=== PATIENT | female | born 1960 | race Caucasian/White ===

== ENCOUNTER 2018-03-28 16:01 | Outpatient (REF) | payer OTHER, SELFPAY ==
[2018-03-28 22:36] LABS: HCT 40.3 % (36.0-46.0); HGB 13.3 g/dL (12.0-15.5); Mean Corpuscular Hemoglobin 28.2 pg (27.0-33.0); Mean Corpuscular Volume 85.4 fL (80-95); Mean Platelet Volume 10.9 fL (8.0-11.0); Platelet Count 283 x1000/uL (130-400); RBC 4.72 m/cumm (4.00-5.20); RBC Distribution Width 14.8 % (11.7-14.6); White Blood Cell Count 7.36 k/cumm (4.4-10.8)
[2018-03-28 22:43] LABS: ALT 27 U/L (12-78); AST 21 U/L (15-37); Albumin 3.6 g/dL (3.4-5.0); Alkaline Phosphatase 118 U/L (46-116); Anion Gap 7.9 mmol/L (3-11); BUN 6 mg/dL (7-18); Bilirubin, Total 0.3 mg/dL (0.2-1.0); CO2 28.1 mmol/L (21.0-32.0); CREATININE 0.77 mg/dL (0.55-1.02); Calcium 8.5 mg/dL (8.5-10.1); Chloride 106 mmol/L (98-107); Cholesterol 221 mg/dL (50-200); Glucose 135 mg/dL (70-100); HDL Cholesterol 38 mg/dL (40-60); LDL CHOLESTEROL 142 mg/dL (<100); Potassium 3.7 mmol/L (3.5-5.1); Sodium 142 mmol/L (136-145); TSH 3.38 uIU/mL (0.358-3.74); Total Protein 7.5 g/dL (6.4-8.2); Triglyceride 362 mg/dL (30-150)
[2018-03-28 23:08] LABS: C-Reactive Protein 2.85 mg/dL (0.0-0.3)
[2018-03-28 23:43] LABS: ESR 35 MM/HR (0-30)
[2018-03-31 08:43] LABS: ANA Interpretation Negative (NEGAT); HLA-B27 Result Negative
== END 2018-03-28 16:21 ==
LOC: NCHCN 16:01
PROVIDERS: PCP Nurse Practitioner Family; Visit Provider Nurse Practitioner Family
DX: N92.0 Excessive and frequent menstruation with regular cycle (principal); K58.9 Irritable bowel syndrome, unspecified
CPT/HCPCS: 80053; 80061; 83721; 85027; 85652; 86812; 84443; 86038; 86140

== ENCOUNTER 2019-10-27 10:58 | Outpatient (REF) | payer OTHER, SELFPAY ==
[2019-10-27 21:01] LABS: Hemoglobin A1C 6.8 % (3.8-5.6)
[2019-10-27 21:12] LABS: Anion Gap 7.9 mmol/L (3-11); BUN 15 mg/dL (7-18); CO2 29.1 mmol/L (21.0-32.0); CREATININE 0.74 mg/dL (0.55-1.02); Calcium 8.8 mg/dL (8.5-10.1); Calculated LDL 167 mg/dL (<100); Chloride 103 mmol/L (98-107); Cholesterol 252 mg/dL (<200); Glucose 125 mg/dL (74-106); HDL Cholesterol 47 mg/dL (40-60); Sodium 140 mmol/L (136-145); Triglyceride 191 mg/dL (<150)
== END 2019-10-27 11:18 ==
LOC: NCHCN 10:58
PROVIDERS: PCP Nurse Practitioner Family; Visit Provider Nurse Practitioner Family
DX: E11.9 Type 2 diabetes mellitus without complications (principal); E78.5 Hyperlipidemia, unspecified
CPT/HCPCS: 80048; 80061; 83036

== ENCOUNTER 2020-03-25 10:33 | Outpatient (REF) | payer OTHER, SELFPAY ==
[2020-03-28 12:21] LABS: SARS-CoV-2 RNA Undetected (Undetected); SARS-CoV-2 Specimen Source Nasopharynx
== END 2020-03-25 10:53 ==
LOC: NCHCN 10:33
PROVIDERS: PCP Nurse Practitioner Family; Visit Provider Nurse Practitioner Family
DX: R05 Cough (principal)
CPT/HCPCS: U0003

== ENCOUNTER 2020-05-08 09:12 | Outpatient (REF) | payer OTHER, SELFPAY ==
[2020-05-08 22:14] LABS: HCT 40.5 % (36.0-46.0); HGB 13.2 g/dL (11.2-15.7); MCH 28.5 pg (27.0-33.0); MCHC 32.6 % (32.0-36.0); MCV 87.5 fL (80-95); MPV 10.8 fL (8.0-11.0); Platelet Count 258 10^3/uL (130-400); RBC 4.63 10^6/uL (3.93-5.22); RDW 13.4 % (11.7-14.6); WBC 4.53 10^3/uL (4.4-10.8)
[2020-05-08 22:39] LABS: Hemoglobin A1C 7.4 % (<5.7)
[2020-05-08 23:06] LABS: ALT 39 U/L (14-59); AST 23 U/L (15-37); Albumin 3.6 g/dL (3.4-5.0); Alkaline Phosphatase 100 U/L (46-116); Anion Gap 8.4 mmol/L (3-11); BUN 13 mg/dL (7-18); Bilirubin, Total 0.6 mg/dL (0.2-1.0); CO2 26.6 mmol/L (21.0-32.0); CREATININE 0.69 mg/dL (0.55-1.02); Calcium 8.7 mg/dL (8.5-10.1); Calculated LDL 73 mg/dL (<100); Chloride 104 mmol/L (98-107); Cholesterol 149 mg/dL (<200); Glucose 177 mg/dL (74-106); HDL Cholesterol 45 mg/dL (40-60); Magnesium 1.8 mg/dL (1.8-2.4); Sodium 139 mmol/L (136-145); Triglyceride 156 mg/dL (<150); Vitamin B12 380 pg/mL (193-986)
== END 2020-05-08 09:32 ==
LOC: NCHCN 09:12
PROVIDERS: PCP Nurse Practitioner Family; Visit Provider Nurse Practitioner Family
DX: R53.83 Other fatigue (principal); E11.9 Type 2 diabetes mellitus without complications; E66.3 Overweight
CPT/HCPCS: 80053; 80061; 85027; 82607; 83036; 83735

== ENCOUNTER 2020-06-12 13:34 | Outpatient (REF) | payer OTHER, SELFPAY ==
[2020-06-15 17:00] LABS: COVID-19 RT-PCR Result NEGATIVE (Negative)
== END 2020-06-12 13:54 ==
LOC: NCHCN 13:34
PROVIDERS: PCP Nurse Practitioner Family; Visit Provider Nurse Practitioner Family
DX: J06.9 Acute upper respiratory infection, unspecified (principal); Z20.828 Contact with and (suspected) exposure to other viral communicable diseases
CPT/HCPCS: U0003

== ENCOUNTER 2020-07-04 12:44 | Outpatient (REF) | payer OTHER, SELFPAY ==
[2020-07-04 16:30] LABS: COMMENT (LAB VIEW ONLY) 160.15 mg/dL
[2020-07-04 16:46] LABS: Microalb ug/mg Crea 81.6 ug/mg Cr
== END 2020-07-04 13:04 ==
LOC: NCHCN 12:44
PROVIDERS: PCP Nurse Practitioner Family; Visit Provider Registered Nurse
DX: N39.0 Urinary tract infection, site not specified (principal); E11.9 Type 2 diabetes mellitus without complications
CPT/HCPCS: 87077; 82043; 82570; 87086; 87186

== ENCOUNTER 2020-08-05 15:46 | Outpatient (REF) | payer OTHER, SELFPAY ==
[2020-08-05 21:09] LABS: Epithelial Cells Few HPF (Negative); RBC 0-2 HPF (0-2)
[2020-08-05 21:10] LABS: Bacteria Rare HPF (Negative); C & S Indicated? C&S Done As Ordered; Casts Negative LPF (Negative); Crystals Negative HPF (Negative); Mucus Negative (Negative)
[2020-08-05 21:14] LABS: Anion Gap 7.5 mmol/L (3-11); BUN 10 mg/dL (7-18); CO2 25.5 mmol/L (21.0-32.0); CREATININE 0.98 mg/dL (0.55-1.02); Calcium 8.9 mg/dL (8.5-10.1); Chloride 104 mmol/L (98-107); Cholesterol 222 mg/dL (<200); Estimated GFR 58.09 (mL/min/1.73m2); Glucose 187 mg/dL (74-106); HDL Cholesterol 44 mg/dL (40-60); Potassium 3.6 mmol/L (3.5-5.1); Sodium 137 mmol/L (136-145); Triglyceride 450 mg/dL (<150)
[2020-08-05 21:45] LABS: LDL CHOLESTEROL 136 mg/dL (<100)
== END 2020-08-05 16:06 ==
LOC: NCHCN 15:46
PROVIDERS: PCP Nurse Practitioner Family; Visit Provider Nurse Practitioner Family
DX: E11.9 Type 2 diabetes mellitus without complications (principal); R80.9 Proteinuria, unspecified; R35.8 Other polyuria; K21.9 Gastro-esophageal reflux disease without esophagitis; D86.9 Sarcoidosis, unspecified; E78.5 Hyperlipidemia, unspecified
CPT/HCPCS: 80048; 80061; 83721; 81015; 87086

== ENCOUNTER 2020-08-12 15:48 | Outpatient (REF) | payer OTHER, SELFPAY ==
[2020-08-12 21:19] LABS: Bacteria Few HPF (Negative); C & S Indicated? No; Crystals Negative HPF (Negative); Epithelial Cells Many HPF (Negative); Mucus Negative (Negative); RBC 0-2 HPF (0-2); WBC Negative HPF (0-5)
== END 2020-08-12 16:08 ==
LOC: NCHCN 15:48
PROVIDERS: PCP Nurse Practitioner Family; Visit Provider Nurse Practitioner Family
DX: R31.9 Hematuria, unspecified (principal)
CPT/HCPCS: 81015

== ENCOUNTER 2020-09-20 08:22 | Outpatient (REF) | payer OTHER, SELFPAY ==
[2020-09-20 13:24] LABS: Hemoglobin A1C 7.4 % (<5.7)
[2020-09-20 13:26] LABS: Calculated LDL 75 mg/dL (<100); Cholesterol 155 mg/dL (<200); HDL Cholesterol 55 mg/dL (40-60); Triglyceride 126 mg/dL (<150)
== END 2020-09-20 08:23 | disposition home or self-care (01) ==
LOC: NCHCN 08:22
PROVIDERS: PCP Nurse Practitioner Family; Visit Provider Nurse Practitioner Family
DX: E11.9 Type 2 diabetes mellitus without complications (principal); E78.5 Hyperlipidemia, unspecified
CPT/HCPCS: 80061; 83036

== ENCOUNTER 2020-10-14 17:24 | Outpatient (REF) | payer OTHER, SELFPAY ==
--- NOTE | 2020-10-14 16:00 | PAPFT_PTH ---
PATIENT: Amy Alexander LOC: [facility] U#:[id number] AGE/SX: 60/F ROOM: RE10/14/[address]: Diane Soto : 1960 BED: DIS: 10/14/2020 SPEC #: [id number] RECD: 10/15/20 12:51 STATUS: KYLER MARTE #: [id number] RODO: 10/14/20 16:[address]: Diane Law DEPT: [facility] Cytology RECD BY: Anne Villarreal ENTERED: 10/15/20 12:51 SP TYPE: PAPFT ADRIANA DR: Sarah Núñez Tissues: 1 - CX/ENDOCX FOR PAP SMEARS Procedures: PAP THIN PREP/UVM Screening HPV DNA PROBE Comments: [id number]
== END 2020-10-14 17:25 | disposition home or self-care (01) ==
LOC: NCHCN 17:24
PROVIDERS: PCP Nurse Practitioner Family; Visit Provider Nurse Practitioner Family
DX: Z00.00 Encounter for general adult medical examination without abnormal findings (principal); Z12.4 Encounter for screening for malignant neoplasm of cervix; Z11.51 Encounter for screening for human papillomavirus (HPV)
CPT/HCPCS: 88142; 87624

== ENCOUNTER 2021-01-14 16:26 | Outpatient (REF) | payer OTHER, SELFPAY ==
--- NOTE | 2021-01-14 15:00 | SKI_PTH ---
PATIENT: Amy Alexander LOC: [facility] U#:[id number] AGE/SX: 60/F ROOM: RE01/14/[address]: Diane Soto : 1960 BED: DIS: 01/14/2021 SPEC #: [id number] RECD: 01/15/21 09:09 STATUS: KYLER REMarino #: [id number] RODO: 01/14/21 15:[address]: Diane Law DEPT: Surgical Specimen RECD BY: Marcy Kearns ENTERED: 01/15/21 09:12 SP TYPE: GENTRY WRIGHT DR: Sarah Núñez Tissues: 1 - SKIN BIOPSY(SHAVE/PUNCH) Procedures: SKIN LEVEL 4 Comments: [id number]
== END 2021-01-14 16:27 | disposition home or self-care (01) ==
LOC: NCHCN 16:26
PROVIDERS: PCP Nurse Practitioner Family; Visit Provider Nurse Practitioner Family
DX: D22.5 Melanocytic nevi of trunk (principal)
CPT/HCPCS: 88305

== ENCOUNTER 2021-04-22 01:35 | Outpatient (CLI) | payer OTHER, SELFPAY ==
[2021-04-22] MEDS: Normal Saline 500 ML 30 ML IV (10:25)
[2021-04-22 10:50] VITALS: BP 114/73; PULSE 70; RESP 16; TEMP 36.9; O2SAT 99
[2021-04-22 11:05] VITALS: BP 114/73; PULSE 70; RESP 16; TEMP 36.9; O2SAT 99
[2021-04-22 11:30] VITALS: BP 122/85; PULSE 76; RESP 16; TEMP 37.1; O2SAT 99
[2021-04-22 11:56] VITALS: BP 100/67; PULSE 74; RESP 16; TEMP 36.7; O2SAT 97
[2021-04-22 12:45] VITALS: BP 100/67; PULSE 79; RESP 16; TEMP 36.9; O2SAT 97
[2021-04-22] MEDS: Normal Saline Flush 10 ML SYR IVP (13:09)
== END 2021-04-22 01:36 | disposition home or self-care (01) ==
PROVIDERS: PCP Nurse Practitioner Family; Visit Provider Family Medicine
DX: U07.1 COVID-19 (principal)
CPT/HCPCS: 96365

== ENCOUNTER 2021-07-10 17:20 | Outpatient (REF) | payer OTHER, SELFPAY ==
[2021-07-10 18:05] LABS: Hemoglobin A1C 6.1 % (<5.7)
[2021-07-10 18:08] LABS: Anion Gap 9.6 mmol/L (3-11); BUN 11 mg/dL (7-18); CO2 26.4 mmol/L (21.0-32.0); CREATININE 0.8 mg/dL (0.55-1.02); Calcium 8.7 mg/dL (8.5-10.1); Chloride 106 mmol/L (98-107); Glucose 183 mg/dL (74-106); Potassium 4.1 mmol/L (3.5-5.1); Sodium 142 mmol/L (136-145)
== END 2021-07-10 17:21 | disposition home or self-care (01) ==
LOC: NCHCN 17:20
PROVIDERS: PCP Nurse Practitioner Family; Visit Provider Nurse Practitioner Family
DX: E11.9 Type 2 diabetes mellitus without complications (principal)
CPT/HCPCS: 80048; 83036

== ENCOUNTER 2021-12-17 15:58 | Outpatient (REF) | payer OTHER, SELFPAY ==
[2021-12-17 21:17] LABS: HCT 38.7 % (36.0-46.0); HGB 12.4 g/dL (11.2-15.7); MCH 28.2 pg (27.0-33.0); MCV 88 fL (80-95); MPV 12.1 fL (8.0-11.0); Platelet Count 196 10^3/uL (130-400); RBC 4.39 10^6/uL (3.93-5.22); RDW 13.9 % (11.7-14.6); RDW-SD 44.6 fL; WBC 6.16 10^3/uL (4.4-10.8)
[2021-12-17 21:44] LABS: Hemoglobin A1C 6.5 % (<5.7)
[2021-12-22 12:41] LABS: IgA 256 mg/dL (85-499); Interpretation (See Note); Tissue Transglutaminase IgA <1.2 U/mL (<4.0)
== END 2021-12-17 15:59 | disposition home or self-care (01) ==
LOC: NCHCN 15:58
PROVIDERS: PCP Nurse Practitioner Family; Visit Provider Nurse Practitioner Family
DX: E11.9 Type 2 diabetes mellitus without complications (principal); R19.7 Diarrhea, unspecified
CPT/HCPCS: 82784; 83516; 85027; 83036

== ENCOUNTER 2021-12-29 16:26 | Outpatient (REF) | payer OTHER, SELFPAY ==
[2021-12-29 23:23] LABS: COMMENT (LAB VIEW ONLY) 196.58 mg/dL
== END 2021-12-29 16:27 | disposition home or self-care (01) ==
LOC: NCHCN 16:26
PROVIDERS: PCP Nurse Practitioner Family; Visit Provider Nurse Practitioner Family
DX: I10 Essential (primary) hypertension (principal); E11.9 Type 2 diabetes mellitus without complications; K58.9 Irritable bowel syndrome, unspecified; D86.9 Sarcoidosis, unspecified
CPT/HCPCS: 82043; 82570

== ENCOUNTER 2022-12-21 12:49 | Outpatient (REF) | payer SELFPAY ==
[2022-12-21 15:39] LABS: HCT 40.8 % (36.0-46.0); HGB 13.3 g/dL (11.2-15.7); MCH 28.2 pg (27.0-33.0); MCHC 32.6 % (32.0-36.0); MCV 86 fL (80-95); MPV 10.5 fL (8.0-11.0); Platelet Count 301 10^3/uL (130-400); RBC 4.72 10^6/uL (3.93-5.22); RDW 13.9 % (11.7-14.6); RDW-SD 44.3 fL; WBC 5.11 10^3/uL (4.4-10.8)
[2022-12-21 15:53] LABS: ALT 37 U/L (14-59); AST 27 U/L (15-37); Albumin 3.5 g/dL (3.4-5.0); Alkaline Phosphatase 100 U/L (46-116); Anion Gap 5.1 mmol/L (3-11); BUN 12 mg/dL (7-18); Bilirubin, Total 0.4 mg/dL (0.2-1.0); CO2 27.9 mmol/L (21.0-32.0); CREATININE 0.8 mg/dL (0.55-1.02); Calcium 8.7 mg/dL (8.5-10.1); Chloride 103 mmol/L (98-107); Estimated GFR 83.78 (mL/min/1.73m2); Glucose 103 mg/dL (74-106); Sodium 136 mmol/L (136-145); TSH 3.39 uIU/mL (0.36-3.74); Total Protein 7.6 g/dL (6.4-8.2)
[2022-12-21 16:19] LABS: Hemoglobin A1C 6.6 % (<5.7)
== END 2022-12-21 12:50 | disposition home or self-care (01) ==
LOC: NCHCN 12:49
PROVIDERS: PCP Nurse Practitioner Family; Visit Provider Nurse Practitioner Family
DX: Z00.00 Encounter for general adult medical examination without abnormal findings (principal); R53.83 Other fatigue; E66.3 Overweight
CPT/HCPCS: 80053; 85027; 83036; 84443

== ENCOUNTER 2024-04-17 16:00 | Outpatient (REF) | payer BC, SELFPAY ==
[2024-04-17 22:18] LABS: ALT 28 U/L (14-59); AST 25 U/L (15-37); Albumin 3.6 g/dL (3.4-5.0); Alkaline Phosphatase 116 U/L (46-116); Anion Gap 8.9 mmol/L (3-11); BUN 8 mg/dL (7-18); Bilirubin, Total 0.57 mg/dL (0.2-1.0); CO2 27.1 mmol/L (21.0-32.0); CREATININE 0.8 mg/dL (0.55-1.02); Calcium 9.1 mg/dL (8.5-10.1); Calculated LDL 83 mg/dL (<100); Chloride 106 mmol/L (98-107); Cholesterol 185 mg/dL (<200); Estimated GFR 83.26 (mL/min/1.73m2); Glucose 191 mg/dL (74-106); HDL Cholesterol 53 mg/dL (40-60); Potassium 4.1 mmol/L (3.5-5.1); Sodium 142 mmol/L (136-145); Total Protein 7.6 g/dL (6.4-8.2); Triglyceride 248 mg/dL (<150)
[2024-04-17 22:28] LABS: COMMENT (LAB VIEW ONLY) 84.83 mg/dL; Microalb ug/mg Crea 5.1 ug/mg Cr
== END 2024-04-17 16:01 | disposition home or self-care (01) ==
LOC: NCHCN 16:00
PROVIDERS: PCP Nurse Practitioner Family; Visit Provider Nurse Practitioner Family
DX: E11.9 Type 2 diabetes mellitus without complications (principal); Z86.2 Personal history of diseases of the blood and blood-forming organs and certain disorders involving the immune mechanism; E78.5 Hyperlipidemia, unspecified
CPT/HCPCS: 80053; 80061; 85027; 82043; 82570; 83036

== ENCOUNTER 2024-04-26 16:00 | Outpatient (REF) | payer BC, SELFPAY ==
--- OUTSIDE RECORDS SUMMARY | 2024-04-26 16:04 | XMS_ITS | Clinical Summary ---
Author Organization [facility] Address [address] [place] [address] Care Team Providers Care Solid Waste Truck Driver Name Role Phone Diane Law NP Primary Care Provider [phone] Leif Lovelace MD Unavailable [phone] Allergies No known active allergies Medications Medication Sig Dispensed Refills Start Date End Date Status dexlansoprazole (DEXILANT) 60 mg capsule Take 1 Capsule by mouth daily. Active acetaminophen (TYLENOL) 325 mg tablet Take 1 Tablet by mouth every 4 hours as needed for Pain. Active calcium carbonate (TUMS) 200 mg calcium (500 mg) tablet,chewable Take 1 Tablet by mouth every 2 hours as needed. Active albuterol 90 mcg/actuation inhaler Inhale 2 Puffs as directed every 6 hours as needed for Wheezing. Active cyclopentolate (CYCLOGYL) 2 % ophthalmic solutionIndications :Iritis of left eye Place 1 Drop into the left eye 2 times daily. 1 Bottle 07/20/2018 Active Additional Information Patient not taking.Reported on 10/07/2018 prednisoLONE (PRED FORTE) 1 % ophthalmic suspensionIndicatio ns:Iritis of left eye Place 1 drop into the left eye 4 times daily. 1 Bottle 2 10/13/2018 Active Additional Information Patient not taking.Reported on 07/30/2023 sucralfate (CARAFATE) 1 gram tablet Take 1 Tablet by mouth 4 times daily. Active lansoprazole (PREVACID) 15 mg capsule Take 1 Capsule by mouth daily. Active metFORMIN (GLUCOPHAGE) 500 mg tablet Take 1 Tablet by mouth daily. Active losartan (COZAAR) 25 mg tablet Take 1 Tablet by mouth daily. 11/07/2022 Active BD ULTRA-FINE ORIG PEN NEEDLE USE DIRECTED EVERY DAY WITH VICTOZA 01/20/2023 Active atorvastatin (LIPITOR) 20 mg tablet Take 1 Tablet by mouth at bedtime. 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 Retinal edema 10/13/2018 Gastroesophageal reflux disease with esophagitis 03/12/2016 Hiatal hernia 03/12/2016 Immunizations Name Administration Dates Next Due Pneumococcal Conjugate Vacci ne 20-Valent (PCV20) (PREVNAR-20) 0.5 mL IM (6 wks+) 08/24/2023 Surgical History Surgery Date Site/Laterality Comments GASTRIC FUNDOPLICATION 12/23/2005 SECTION KNEE SURGERY Left Medical History Medical History Date Comments Asthma Irritable bowel syndrome Gestational diabetes Anemia GERD (gastroesophageal reflux disease) Family History Medical History Relation Comments Diabetes Brother Arthritis Father Cancer Father skin Diabetes Father Diabetes Mother High Blood Pressure Mother High Cholesterol Mother Relation Status Comments Brother Father Alive Mother Alive Social History Tobacco Use Types Packs/Day Years Used Date Smoking Tobacco: Never Smokeless Tobacco: Never Alcohol Use Standard Drinks/Week Comments Not Currently 0 (1 standard drink = 0.6 oz pur e alcohol) occ Interpersonal Safety Answer Date Record ed Physically Hurt Never 02/11/2020 Verbally Threaten Not on file 02/11/2020 Sex and Gender Information Value Date Recorded Sex Assigned at Not on file Gender Identity Not on file Sexual Orientation Not on file Obstetrics History Last Filed Vital Signs Vital Sign Reading Time Taken Comments Blood Pressure 112/68 08/24/2023 1346 EST Pulse 74 08/24/2023 1346 EST Temperature 36.6 ??C (97.9 ??F) 08/24/2023 1346 EST Respiratory Rate 16 08/24/2023 1346 EST Oxygen Saturation 97% 08/24/2023 1346 EST Inhaled Oxygen Concentration - - Weight 73.2 kg (161 lb 6.4 oz) 08/24/[address] Height 154.9 cm (5' 1) 08/24/2023 1346 EST Body Mass Index 30.5 08/24/2023 1346 EST Plan of Treatment Upcoming Encounters Date Type Department Care Team (Late st Contact Info) Description 05/18/2024 15:30 EST Office Visit [facility] Pulmonology [address] [facility], [place] [address] Leif Lovelace MD [address] [facility], [facility] [address] [place] [phone] Health Maintenance Due Date Last Done Comments Hepatitis C Screen 1960 RSV Immunization ( o r 60+ Years) (1 - 1-dose 60+ series) 2021 COVID-19 Vaccine (2023- season) 2024 Colonoscopy (Colon Cancer Screening) Discontinued 04/11 Colorectal Cancer Screening Discontinued Cologuard (Colon Cancer Screening) Discontinued FIT Test (Colon Cancer Screening) Discontinued Sigmoidoscopy (Colon Cancer Screening) Discontinued Procedures Procedure Name Priority Date/Time Associated Diagnosis Comments COLONOSCOPY PROCEDURE Routine 04/20/2018 11:01 EDT from Last 3 Months or Most Recently Relevant to Health Maintenance Results * COLONOSCOPY PROCEDURE (04/20/2018 11:01 EDT) Anatomical Region Laterality Modality Endoscopy Narrative 04/20/2018 11:01 EDT Procedure Performed Colonoscopy - cold biopsy Indications for Exam CHANGE IN BOWEL HABITS Procedure Technique A physical exam was performed. Informed consent was obtained from the patient after explaining all the risks (perforation, bleeding, missed findings, injury to nearby organs, infection and adverse effects to the medicine), benefits and alternatives to the procedure which the patient appeared to understand and so stated. ??The patient was connected to the monitoring devices and placed in the left lateral position. Continuous oxygen was provided with a nasal cannula and IV medicine administered thru an indwelling cannula. After adequate sedation was achieved, a digital exam was performed and the colonoscope introduced into the rectum and advanced under direct visualization to the terminal ileum. The terminal ileum was identified by visual landmarks. The endoscope was subsequently removed slowly while carefully examining the color, texture, anatomy, and integrity of the mucosa on withdrawal. Retroflexion was performed in the rectum: Yes. The patient was subsequently transferred to the recovery area in satisfactory condition. Rectal Exam:Normal rectal exam Estimated Blood Loss: None Complications None Medications Versed 4 mg Fentanyl 100 mcg I was in continuous face to face attendance during the administration of moderate sedation services that were monitored by an independent trained observer who had no other duties during the procedure. ??Total sedation time was ??20 ??minutes. Prosser Bowel Prep Right Colon: 3 ? Transverse Colon: 3 ? Left Colon: 3 ?Total: 9 Findings Few diverticulosis in the descending colon. random bx obtained to assess for microscopic colitis Diagnosis rare diverticulosis Recommendations check path and if evidence of microscopic colitis, begin budesonide 9 mg a day repeat colonoscopy in 10 yrs I would be pleased to see you in consultation if you desire. Please call the office. This electronic signature authenticates all electronic and/or handwritten documentation, including orders, generated by the signer during the episode of care contained in this record. 04/20/2018 11:01:13 AM By Winston Powers MD Winston Powers MD GI PROCEDURE ORDBruno BARNES from Last 3 Months or Most Recently Relevant to Health Maintenance Care Teams Solid Waste Truck Driver Relationship Specialty Start Date End Date Diane Law NP [address] [place] [address] PCP - General 01/21/21 Leif Lovelace MD [address] [place] [address], [address] [place] [phone] Consulting Clinician Pulmonary Disease 08/24/23
--- OUTSIDE RECORDS SUMMARY | 2024-04-26 16:05 | XMS_ITS | Encounter Summary ---
Author Organization [facility] Address [address] [place] [address] Care Team Providers Care Home Health Manager Name Role Phone Reggie Peralta MD Primary Care Provide r Encounter Details Date Type Department Care Team ([facility] Contact Info) Description 04/20/2018 Results Only [facility] [phone] Unknown, Provider, Social History Tobacco Use Types Packs/Day Years Used Date Smoking Tobacco: Never Smokeless Tobacco: Never Alcohol Use Standard Drinks/Week Comments Yes 0 (1 standard drink = 0.6 oz pur e alcohol) occ Sex and Gender Information Value Date Recorded Sex Assigned at Not on file Gender Identity Not on file Sexual Orientation Not on file documented as of this encounter Plan of Treatment Upcoming Encounters Date Type Department Care Team ([facility] Contact Info) Description 05/18/2024 15:30 EST Office Visit [facility] Pulmonology [address] [place] [address] Leif Lovelace MD [address] [facility], [address] [place] [address] documented as of this encounter Procedures Procedure Name Priority Date/Time Associated Diagnosis Comments GLUCOSE, GLUCOMETER Routine 04/20/2018 1 0:04 EDT documented in this encounter Results * (ABNORMAL) GLUCOSE, GLUCOMETER (04/20/2018 10:04 EDT) Glucose, Fingerstick 102(H) 70 - 100 mg/dl 04/20/2018 10:11 EDT [facility] Armed Security Officer ID [id number] 04/20/2018 10:11 EDT [facility] Comment:Test Performed by [facility] BLOOD SPECIMEN / Unknown 04/20/2018 10:04 EDT 04/20/2018 10:11 EDT Provider Unknown MD CHEMISTRY & BLOOD GA S ORDERABLES [facility] [address] [place] [address] documented in this encounter Visit Diagnoses Not on filedocumented in this encounter Care Teams Home Health Manager Relationship Specialty Start Date End Date Reggie Peralta MD [address] [place] [id number] PCP - General 01/20/16 01/20/21 documented as of this encounter
--- OUTSIDE RECORDS SUMMARY | 2024-04-26 16:05 | XMS_ITS | Encounter Summary ---
Author Organization [facility] Address [address] [place] [address] Care Team Providers Care Grinder Operator Automatic Name Role Phone Libetrad Peralta MD Primary Care Provide r Encounter Details Date Type Department Care Team (Late st Contact Info) Description 04/20/2018 9:31 EDT - 04/20/2018 12:57 EDT Hospital Encounter [facility] Endoscopy Outpatient [address] [place], [place] [address] Noel Powers MD [address] [facility] [address] [place] [phone] Discharge Disposition: Home or Self Care Social History Tobacco Use Types Packs/Day Years Used Date Smoking Tobacco: Never Smokeless Tobacco: Never Alcohol Use Standard Drinks/Week Comments Yes 0 (1 standard drink = 0.6 oz pur e alcohol) occ Sex and Gender Information Value Date Recorded Sex Assigned at Not on file Gender Identity Not on file Sexual Orientation Not on file documented as of this encounter Last Filed Vital Signs Vital Sign Reading Time Taken Comments Blood Pressure 106/69 04/20/2018 1130 EDT Pulse - - Temperature 36.3 ??C (97.3 ??F) 04/20/2018 1104 EDT Respiratory Rate 19 04/20/2018 1130 EDT Oxygen Saturation 97% 04/20/2018 1130 EDT Inhaled Oxygen Concentration - - Weight 65.8 kg (145 lb) 04/20/2018 0952 EDT Height 154.9 cm (5' 1) 04/20/2018 0952 EDT Body Mass Index 27.4 04/20/2018 0952 EDT documented in this encounter Discharge Diagnoses Diagnosis R19.4 Change in bowel habit-R19.4[ICD-10-CM] K57.30 Diverticulosis of large intestine without perforation or abscess without bleeding-K57.30[ICD-10-CM] J45.909 Unspecified asthma, uncomplicated-J45.909[ICD-10-CM] K21.9 Gastro-esophageal reflux disease without esophagitis-K21.9[ICD-10-CM] Z79.899 Other skilled nursing (current) drug therapy-Z79.899[ICD-10-CM] documented in this encounter Medications at Time of Discharge Medication Sig Dispensed Refills Start Date End Date acetaminophen (TYLENOL) 325 mg tablet Take 1 Tablet by mouth every 4 hours as needed for Pain. albuterol 90 mcg/actuation inhaler Inhale 2 Puffs as directed every 6 hours as needed for Wheezing. calcium carbonate (TUMS) 200 mg calcium (500 mg) tablet,chewable Take 1 Tablet by mouth every 2 hours as needed. dexlansoprazole (DEXILANT) 60 mg capsule Take 1 Capsule by mouth daily. omeprazole (PRILOSEC) 40 mg capsule Take 40 mg by mouth daily. 08/24/2023 pantoprazole (PROTONIX) 40 mg tablet Take 40 mg by mouth 2 times daily. 08/24/2023 ranitidine (ZANTAC) 150 mg capsule Take 150 mg by mouth 2 times daily as needed. 08/24/2023 documented as of this encounter Discharge Disposition Disposition Code Departure Means Destination Home or Self Custodial documented in this encounter H&P Notes * Noel Powers MD - 04/20/2018 1056 EDT Endoscopy Sedation for Procedure History & Physical Date: 04/20/2018 Time: 10:56 Location: [address] Planned Procedure: Colonoscopy Chief Complaint/Indications for Procedure: screening History Previous Complication with Sedation and/or Anesthesia? No Allergies: No Known Allergies Current Medications: Current Outpatient Prescriptions: acetaminophen (TYLENOL) 325 mg tablet albuterol 90 mcg/actuation inhaler calcium carbonate (TUMS) 200 mg calcium (500 mg) tablet,chewable dexlansoprazole (DEXILANT) 60 mg capsule omeprazole (PRILOSEC) 40 mg capsule pantoprazole (PROTONIX) 40 mg tablet ranitidine (ZANTAC) 150 mg capsule Current Facility-Administered Medications: atropine 0.1 mg/mL syringe 0.25-1 mg intravenous PRN fentaNYL citrate (PF) 50 mcg/mL injection 25-250 mcg intravenous Once PRN lactated ringers (LR) infusion intravenous CONTINUOUS midazolam (MDV) (VERSED) injection 1-10 mg intravenous Once PRN sodium chloride 0.9 % flush 3 mL intravenous PRN Past Medical History: Past Medical History: Diagnosis Date ??? Anemia ??? Asthma ??? GERD (gastroesophageal reflux disease) ??? Gestational diabetes ??? Irritable bowel syndrome Social History: Past Surgical History: Procedure Laterality Date ??? SECTION ??? GASTRIC FUNDOPLICATION 12/23/2005 ??? KNEE SURGERY Left Social History Substance Use Topics ??? Smoking status: Never Smoker ??? Smokeless tobacco: Never Used ??? Alcohol use Yes Comment: occ Family History: Family History Problem Relation Age of Onset ??? Diabetes Mother ??? High Cholesterol Mother ??? High Blood Pressure Mother ??? Arthritis Father ??? Diabetes Father ??? Cancer Father 82 skin ??? Diabetes Brother Review of Systems as pertinent: Physical Exam Vital Signs: BP 119/68 Temp 36.7 ??C (98.1 ??F) (Tympanic) Resp 12 Ht 154.9 cm (61) Wt 65.8 kg (145 lb) SpO2 98% BMI 27.4 kg/m2 Heart Examination: Cardiac Regularity: Regular Respiratory Examination: Respiratory Pattern: Regular Breath Sounds Right: Clear Breath Sounds Left: Clear Abdominal Examination: Soft, non-tender, bowel sounds normal, no masses, no organomegaly, Symmetric Additional physical exam related to the proposed procedure, patient activity, disease state and treatment as pertinent: Assessment Previous complications with sedation or anesthesia?: No Airway Concerns: None Anesthesia Classification: ASA 2 Plan: Proceed with sedation for procedure Fasting Time: Time of last liquid intake: 729 Date of Last Liquid Intake: 04/20/18 Time of last solid intake: 1900 Date of last solid intake: 04/18/18 Patient Appropriate Candidate for Planned Sedation?: Yes Noel Powers MD 04/20/2018 10:56 documented in this encounter Miscellaneous Notes * Coding Query - Noel Powers MD - 04/20/2018 1257 EDT CODING QUERY - PLEASE EDIT Physicians: Please document your response by deleting the three asterisks and editing the message. Click Sign to sign the note and send your response. In order to ensure that the reported codes best reflect your patient???s condition, further clarification is required. Please consider the clinical presentation, workup, and treatment for this patient when responding. The patient???s chart can be reviewed electronically in [facility]. In order to code this colonoscopy procedure correctly, clarification is needed in regards to the intent for the colonoscopy the patient had on 04/20/2018. H&P indicates : Screenging Colonoscopy procedure report indicates : Changes in bowel habits. Please select ONE option from the following (by entering an X in one of the check boxes below) identifying that which is the most appropriate primary ???indication for the colonoscopy procedure???: ___Screening colonoscopy __xx_Evaluation of sign/symptoms - diagnostic colonoscopy If you have problems completing this form, please call the Help Desk at [phone]. If you have any questions about the content of this query, please contact John Calhoun director card contact at [email or web address]. documented in this encounter Plan of Treatment Upcoming Encounters Date Type Department Care Team (Late st Contact Info) Description 05/18/2024 15:30 EST Office Visit [facility] Pulmonology [address] [place] [address] Leif Lovelace MD [address] [place] [address] [address] [place] [address] documented as of this encounter Procedures Procedure Name Priority Date/Time Associated Diagnosis Comments SURGICAL PATHOLOGY Routine 04/20/2018 14 :39 EDT COLONOSCOPY PROCEDURE Routine 04/20/2018 11:01 EDT documented in this encounter Results * SURGICAL PATHOLOGY (04/20/2018 14:39 EDT) Pathology Report: SURGICAL PATHOLOGY REPORT Reports generated via electronic interface contain original data; however they are lacking the format of the original report. Caution should be taken when reading/interpret ing unformatted reports. Name: ? DALLAS ALEXANDER ? Accession #: ? [id number] ? : ? 1960 (Age: 57) ??F ? Collect Date: ? 04/20/2018 ? Location: ? ENDOP ? Receive Date: ? 04/20/2018 ? Provider: NOEL POWERS MD Copy to: LIBERTAD PERATLA MD ? Final Pathologic Diagnosis: COLON, RANDOM, BIOPSY: - Colonic mucosa with no significant abnormality. Document reviewed and electronically signed by: RAHEL KIMBROUGH MD Report ??Date: 04/22/2018 09:40 By the signature above, the attending physician certifies that he/she has personally conducted a gross and/or microscopic examination of the described specimens and rendered or confirmed the above diagnosis. Specimen(s) Received: Random bx Clinical History: Diarrhea; screening colonoscopy Gross Description: ? Received in formalin labelled with proper patient identification (initials A, L) and random colon bx are six fragments of burgess-brown tissue ranging from 0.3-0.4 cm in greatest dimension. The specimens are submitted entirely in 1 and 2. NGOC Stringer (ASCP) 04/20/2018 2:59 PM End of Report [facility] 04/20/2018 14:3 9 EDT 04/20/2018 14:39 EDT Noel Powers MD PATHOLOGY ORDERAB LES [facility] [address] [place] [address] * COLONOSCOPY PROCEDURE (04/20/2018 11:01 EDT) Anatomical [...] procedure. ??Total sedation time was ??20 ??minutes. Dent Bowel Prep Right Colon: 3 ? Transverse [...] in this record. 04/20/2018 11:01:13 AM By Noel Powers MD Noel Powers MD GI PROCEDURE SAJAN GAMEZDANIEL documented in this encounter Visit Diagnoses Not on filedocumented in this encounter Administered Medications Inactive Administered Medications - up to 3 most recent administrations Medication Order MAR Action Action Date Dose Rate Site lactated ringers (LR) infusion 30 mL/hr, intravenous, CONTINUOUS, Starting on Wed04/20/18 at 1015, Until Wed04/20/18 at 1459, Routine, Preprocedure New Bag 04/20/2018 10:10 EDT 30 mL/hr 30 mL/hr documented in this encounter Orders Medications Ordered That Bobby ht Not Have Been Administered Count Last Ordered Date First Ordered Date atropine 0.1 mg/mL syringe 0.25-1 mg 1 04/11 fentaNYL citrate (PF) 50 mcg /mL injection 25-250 mcg 1 04/20/2018 lactated ringers (LR) infusion 1 04/20/2018 midazolam (MDV) (VERSED) injection 1-10 mg 1 04/20/2018 sodium chloride 0.9 % flush 3 mL 1 04/20/20 Transfer Count Last Ordered Date First Orde red Date NOTIFY PPS OF DISCHARGE COMPLETE 1 04/20/20 Discharge Count Last Ordered Date First Orde red Date DISCHARGE PATIENT 1 04/20/2018 documented in this encounter Care Teams Grinder Operator Automatic Relationship Specialty Start Date End Date Libertad Peralta MD [address] [place] [address] [address] [place] [address] PCP - General 01/20/16 01/20/21 documented as of this encounter
--- OUTSIDE RECORDS SUMMARY | 2024-04-26 16:05 | XMS_ITS | Encounter Summary ---
Author Organization [facility] Address [address] [place] [address] Care Team Providers Care Life Advisor Name Role Phone Reggie Peralta MD Primary Care Provide r Diane Law ELECTRICAL ENGINEERING TECHNOLOGIST Primary Care Provider [phone] Leif Lovelace MD Unavailable [phone] Encounter Details Date Type Department Care Team (Late st Contact Info) Description 10/16/2020 Lab Requisition [facility] Pathology & Laboratory Medicine - [facility] [address] [place] [address] Diane Law, ELECTRICAL ENGINEERING TECHNOLOGIST [address] [place] [address] Encounter for general adult medical examination without abnormal findings; Encounter for screening for malignant neoplasm of cervix Social History Tobacco Use Types Packs/Day Years [...] on file documented as of this encounter Functional Status Functional Status Response Date of Assess ment Because of a physical, menta l, or emotional condition, does this person have difficulty doing errands alone such as visiting a doctor's office or shopping? No 07/20/2018 Cognitive Status Response Date of Assessm ent Because of a physical, menta l, or emotional condition, does this person have serious difficulty concentrating, remembering, or making decisions? No 07/20/2018 documented as of this encounter Plan of Treatment Upcoming Encounters Date Type Department Care Team (Late st Contact Info) Description 05/18/2024 15:30 EST Office Visit [facility] Pulmonology [address] [facility], [place] [address] Leif Lovelace MD [address] [facility] [address] [place] [address] documented as of this encounter Procedures Procedure Name Priority Date/Time Associated Diagnosis Comments PAP TEST Today 10/14/2020 16:00 EDT Encounter for general adult medical examination without abnormal findings Encounter for screening for malignant neoplasm of cervix HPV DNA DETECTION WITH GENOTYPING, PCR Today 10/14/2020 16:00 EDT Encounter for general adult medical examination without abnormal findings Encounter for screening for malignant neoplasm of cervix documented in this encounter Results * HUMAN PAPILLOMAVIRUS (HPV) DETECTION-HIGH RISK TYPES (10/14/2020 16:00 EDT) HPV other High Risk types, PCR Negative Negative 10/23/2020 8:23 EDT [facility] Comment:No E6 or E7 mRNA is detected from HPV types 16,18,31,33,35,39,45,51,52,56,58,59,66, and 68 by wool sorter mediated amplification. Papanicolaou smear specimen (specimen) CERVIX UTERI STRUCTURE / Unknown 10/14/2020 16:00 EDT 10/21/2020 13:48 EDT Diane Law NP MICROBIOLOGY - GENER AL ORDERABLES [facility] [address] [place] [address] * PAP TEST (10/14/2020 16:00 EDT) Specimens A. Cervix and/or Endocervix , ThinPrep Imaging System with Manual Evaluation 10/23/2020 8:23 EDT [facility] Specimen Adequacy Satisfactory for Evaluation - transformation zone component present 10/23/2020 8:23 EDT [facility] General Categorization Negative for intraepithelial lesion or malignancy 10/23/2020 8:23 EDT [facility] Attestation . 10/23/2020 8:23 EDT [facility] at 0823 Clinical History See below 10/24/19 8:23 T [facility] HPV The result for the Human Papillomavirus (HPV) Detection-High Risk Types is Negative. No E6 or E7 mRNA is detected from HPV types 16,18,31,33,35,39 ,45,51,52,56,58,5 9,66, and 68 by wool sorter mediated amplification.Henrietta ting was performed on specimen [id number] and was resulted on 10/23/2020 0820 EDT by JOEL, LAB INSTRUMENT RESULTS IN 10/23/2020 8:23 T [facility] Performing Lab [facility] 10/23/2020 8:23 T [facility] Scanned Images 10/23/2020 8:23 T [facility] Papanicolaou smear specimen (specimen) CERVIX UTERI STRUCTURE / Unknown 10/14/2020 16:00 EDT 10/16/2020 14:52 EDT Diane Law NP PATHOLOGY ORDERABLES [facility] [address] [place] [address] documented in this encounter Visit Diagnoses Diagnosis Encounter for general adult medical examination without abnormal findings Unspecified general medical examination Encounter for screening for malignant neoplasm of cervix Screening for malignant neoplasm of the cervix documented in this encounter Care Teams Life Advisor Relationship Specialty Start Date End Date Reggie Peralta MD [address] [place] [id number] PCP - General 01/20/16 01/20/21 Diane Law NP [address] [place] [id number] PCP - General 01/21/21 Leif Lovelace MD [address] [place] [address], [address] [place] [address] Consulting Clinician Pulmonary Disease 08/24/23 documented as of this encounter
--- OUTSIDE RECORDS SUMMARY | 2024-04-26 16:05 | XMS_ITS | Encounter Summary ---
Author Organization [facility] Address [address] [place] [id number] Care Team Providers Care Systems Test Technician Name Role Phone Diane Law SEARCH COORDINATOR Primary Care Provider [phone] Leif Lovelace MD Unavailable [phone] Reason for Referral * Radiology Services (Routine/Next Available) - Authorized Specialty Diagnoses / Procedures Referred By Casimiro lima Referred To Contact Diagnoses Sarcoidosis Ground glass opacity present on imaging of lung Procedures CT CHEST WO CONTRAST Leif Lovelace MD [address] [place] [phone] [facility] [place]erral ID Status Reason Start Date Expiration Date V isits Requested Visits Authorized [id number] Authorized 08/30/2023 10/28/2023 1 1 * Test (Routine/Next Available) - Authorization Not Required Specialty Diagnoses / Procedures Referred By Casimiro lima Referred To Contact Diagnoses Sarcoidosis Procedures PULMONARY FUNCTION TESTING Leif Lovelace MD [address] [place] [id number] Referral ID Status Reason Start Date Expiration Date Visits Requested Visits Authorized [id number] Authorization Not Required 08/24/2023 1 1 Reason for Visit * Reason Comments New Patient Visit DX Sarcoidosis x 6 y ears ago and never had f/u on it and would like to discuss with doctor what she should be doing Results Had xrays and labs a nd would like to review with doctor * Referral (Routine) - Authorization Not Required Specialty Diagnoses / Procedures Referred By Casimiro t Referred To Contact Pulmonary Disease Diagnoses Sarcoidosis, unspecified Diane Law, SEARCH COORDINATOR [address] [place] [address] [facility] Pulmonology [address] [place] [address] Referral ID Status Reason Start Date Expiration Date Visits Requested Visits Authorized [id number] Authorization Not Required 1 1 Encounter Details Date Type Department Care Team (Late st Contact Info) Description 08/24/2023 14:00 EST Office Visit [facility] [place] [address] [place] [phone] Leif Lovelace MD [address] [place] [address], [address] [place] [address] Need for vaccination (Primary Dx); Sarcoidosis; Ground glass opacity present on imaging of lung Social History Tobacco Use Types Packs/Day Years [...] Body Mass Index 30.5 08/24/2023 1346 EST documented in this encounter Functional Status Functional Status Response [...] No 07/20/2018 documented as of this encounter Patient Instructions * Patient Instructions* Leif Lovelace MD - 08/24/2023 14:00 EST Instructions to Patient CT chest to follow up abnormal study in June Pulmonary function testing for baseline Return to Clinic: 6 months Questions or Concerns: Sign up for [facility], send message to your provider, and check on your results. Go to [email or web address] for more information. We have provided below a list of phone numbers which may be helpful to further coordinate your care. Department Number Additional Info: Pulmonary Clinic Provider [phone] Mon-Fri; 8am-5pm, except holidays On-call Provider (Pulmonary-[facility]) [phone] Weeknights (after 5pm), Weekends, holidays Pulmonary Function Testing (PFT) [phone] Schedule/re-schedule your appointment; or call our office to coordinate on your behalf Imaging (X-ray, CT, PET) [phone] Schedule/re-schedule; or call our office to coordinate on your behalf [facility] Pharmacy: [facility] Health Assistance Program [phone] email [email or web address] [facility] ([facility]): [address] [place] [phone] documented in this encounter Progress Notes * Lisha Mcconnell RN - 08/24/2023 1400 EST Here today with son,Leonardo at today's appointment. VIS given for PCV20; SE reviewed and ?'s answered. Vaccine given LD per patient request. * Leif Lovelace MD - 08/24/2023 1400 EST Images from the original note were not included. Pulmonary Consultation PCP: Diane Law Chief Complaint Patient presents with New Patient Visit DX Sarcoidosis x 6 years ago and never had f/u on it and would like to discuss with doctor what sheshould be doing Results Had xrays and labs and would like to review with doctor This note may be in part documented using [employer] dictation software. Please forgive any errors, omissions or typos that may result from use of dictation. Assessment & Plan Amy Alexander is a 63 y.o. female who presents today for Initial Consult of Sarcoidosis. Pertinent medical history includes, but is not limited to never smoker, history of IBS, type II diabetes mellitus, history of fundoplication (10+ yrs ago) Sarcoidosis 03/02/2019 - [place]oscopy at [facility] with EBUS FNA of stations 4L, 4R and subcarinal Diagnosed in 2019 at [facility] with history of iridocyclitis/anterior uveitis, elevated serum ANAIS 76, symmetric hilar and mediastinal adenopathy (Dr. Velasco). Given Qvar as empiric trial over prednisone: I prescribed belcomethasone (QVAR) 2 puffs BID (the only one allowed by her plan). The possibility exists that her fatigue may respond to 5-10 mg of prednisone, but since she is overweight, prediabetic, and has glaucoma, she is not an ideal candidate Findings of GGO on CT imaging in June 2023 at [facility], symptoms have resolved, no courses of steroids Plan to repeat imaging Instructions to Patient CT chest to follow up abnormal study in June Pulmonary function testing for baseline Return to Clinic: 6 months Subjective History/Interval Events Evaluation at [facility] ED for chest pressure and pain in July 2023, substernal radiating to both shoulders, increases with food intake and worse laying flat. Recommended for referral to GI. No cough or phlegm, experienced with bending down [place] like something sitting on chest Unable to sleep because unable to lay down, felt worse Notes pleurisy Has not followed with ophthalmology in a few years through [facility] Had upper endoscopy - no significant findings. Recommended to come off Victoza for 3 weeks and symptoms resolved Did not receive steroids Has noticed pitting edema for a few months, not on diuretic therapy. Echocardiogram negative at [facility] Objective Findings: BP 112/68 Pulse 74 Temp 36.6 ??C (97.9 ??F) Resp 16 Ht 154.9 cm (61) Wt 73.2 kg (161 lb 6.4 oz) SpO2 97% BMI 30.50 kg/m?? Physical Exam Vitals reviewed. Constitutional: Appearance: Normal appearance. HENT: Head: Normocephalic and atraumatic. Cardiovascular: Rate and Rhythm: Normal rate and regular rhythm. Pulses: Normal pulses. Pulmonary: Effort: Pulmonary effort is normal. No respiratory distress. Breath sounds: No wheezing or rales. Neurological: General: No focal deficit present. Mental Status: She is alert and oriented to person, place, and time. Psychiatric: Mood and Affect: Mood normal. Behavior: Behavior normal. 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, but discontinuing next month; former restaurant work Pets: 2 dogs Home Type/Mold/Flooding: lives with , 7 children out of 12 children (some adopted), over 100year old home, mixed dirt/concrete foundation, no flooding or mold history Heating/Cooling System: oil furnace, and wood furnace Hobbies: camping - biking, vallecillo picking, walking Hospitalizations, ED, Outpatient Exacerbations PFTs Date FVC LLN FEV1 Z-Score FEV1/FVC LLN ERV TGV (FRC) TLC RV RV/TLC DLCO Imaging Chest XR CT Chest/PET CT Chest ([facility]) 07/06/2023: Cardiac Imaging Labs Abs Eos Hgb HCO2 NTproBNP Outpatient Encounter Medications as of 08/24/2023: acetaminophen (TYLENOL) 325 mg tablet, 325 mg, oral, Q4H PRN albuterol 90 mcg/actuation inhaler, 2 Puff, inhalation, Q6H PRN [DISCONTINUED] atorvastatin (LIPITOR) 10 mg tablet, 20 mg, oral, DAILY atorvastatin (LIPITOR) 20 mg tablet, 20 mg, oral, QHS BD ULTRA-FINE ORIG PEN NEEDLE, USE DIRECTED EVERY DAY WITH VICTOZA calcium carbonate (TUMS) 200 mg calcium (500 mg) tablet,chewable, 1 Tablet, oral, Q2H PRN cyclopentolate (CYCLOGYL) 2 % ophthalmic solution, 1 Drop, left eye, BID (Patient not taking: Reported on 10/07/2018) dexlansoprazole (DEXILANT) 60 mg capsule, 60 mg, oral, DAILY lansoprazole (PREVACID) 15 mg capsule, 15 mg, oral, DAILY [DISCONTINUED] liraglutide (VICTOZA 2-ARNOLDO SUBQ), Inject into the skin. losartan (COZAAR) 25 mg tablet, 1 Tablet, oral, DAILY (Patient not taking: Reported on 08/24/2023) metFORMIN (GLUCOPHAGE) 500 mg tablet, 500 mg, oral, DAILY [DISCONTINUED] omeprazole (PRILOSEC) 40 mg capsule, 40 mg, oral, DAILY [DISCONTINUED] pantoprazole (PROTONIX) 40 mg tablet, 40 mg, oral, BID prednisoLONE (PRED FORTE) 1 % ophthalmic suspension, 1 Drop, left eye, QID (Patient not taking: Reported on 07/30/2023) [DISCONTINUED] ranitidine (ZANTAC) 150 mg capsule, 150 mg, oral, BID PRN (Patient not taking: Reported on 07/30/2023) sucralfate (CARAFATE) 1 gram tablet, 1 g, oral, QID VICTOZA 3-ARNOLDO 0.6 mg/0.1 mL (18 mg/3 mL) injectable pen, ADMINISTER 1.8 MG UNDER THE SKIN EVERY DAY(Patient not taking: Reported on 08/24/2023) I spent a total of 50 minutes on the date of this encounter meeting with the patient and reviewing documentation/coordinating care as described in the above note. No procedures were performed at the time of the visit. . Thank you for the consult Leif Lovelace MD Pulmonary Attending [facility] documented in this encounter Plan of Treatment Upcoming Encounters Date Type Department Care Team (Late st Contact Info) Description 05/18/2024 15:[address] [facility] Pulmonology [address] [facility], [place] [address] Leif Lovelace MD [address] [place] [address], [facility], [address] [place] [address] documented as of this encounter Results * PULMONARY FUNCTION TESTING (09/13/2023 14:22 EST) 09/13/2023 14:2 2 EST Leif Lovelace MD PFT ORDERABLES [facility] PULMONARY FUNCTION TESTING * CT CHEST WO CONTRAST (09/13/2023 10:34 EST) Anatomical Region Laterality Modality Chest Computed Tomogra phy 09/13/2023 10:2 1 EST Impressions 09/15/2023 16:05 EST Sarcoidosis as described above. Please see discussion above. THIS DOCUMENT HAS BEEN ELECTRONICALLY SIGNED BY NESTOR ST MD FOR ANY QUESTIONS OR CONCERNS REGARDING THIS REPORT PLEASE CALL [facility] AT [phone] Narrative 09/15/2023 16:05 EST PROCEDURE INFORMATION: Exam: CT Chest Without Contrast; Diagnostic Exam date and time: 09/13/2023 10:21 AM Age: 63 years old Clinical indication: Sarcoidosis, unspecified; Other nonspecific abnormal finding of lung field; Prior oncological treatment - unknown. ; Additional info: Diffuse ground glass opacity, [place] of pulmonary [place] [facility] [place], [place] chest at [facility] in June 2023, interval imaging TECHNIQUE: Imaging protocol: Diagnostic computed tomography of the chest without contrast. 3D rendering (Not supervised by radiologist): MIP and/or 3D reconstructed images were created by the technologist. Radiation optimization: All CT scans at this facility use at least one of these dose optimization techniques: automated exposure control; mA and/or kV adjustment per patient size (includes targeted exams where dose is matched to clinical indication); or iterative reconstruction. COMPARISON: CT OUTSIDE IMAGES CHEST 07/06/2023 6:26 PM FINDINGS: Thyroid: The thyroid gland is within normal limits. Lungs: The tracheobronchial tree is patent bilaterally. There are slight areas of increased interstitial markings within the right upper lobe and right middle lobe. These were present on the earlier study as well. ??These areas appear less prominent than on the prior study. Pleural spaces: There are no pleural effusions. Heart: The heart and pericardium are within normal limits. Coronary arteries: There are no coronary artery calcifications. Lymph nodes: There is pretracheal, right paratracheal, AP window, precarinal, subcarinal and bilateral hilar adenopathy. These findings are consistent with the patient's history of sarcoidosis. The adenopathy appears essentially unchanged allowing for slight differences in technique. Vasculature: ??There are slight arteriosclerotic changes of the aorta. Diaphragm: There is a small hiatal hernia. This was present on the earlier study as well. Bones/joints: ??There are degenerative changes of the thoracic spine. Soft tissues: Unremarkable. Procedure Note Nestor St MD - 09/15/2023 PROCEDURE INFORMATION: Exam: CT Chest Without Contrast; Diagnostic Exam date and time: 09/13/2023 10:21 AM Age: 63 years old Clinical indication: Sarcoidosis, unspecified; Other nonspecific abnormal finding of lung field; Prior oncological treatment - unknown. ; Additional info: Diffuse ground glass opacity, history of pulmonary sarcoid[place] [facility] [place], CT chest at [facility] in June 2023, interval imaging TECHNIQUE: Imaging protocol: Diagnostic computed tomography of the chest without contrast. 3D rendering (Not supervised by radiologist): MIP and/or 3D reconstructed images were created by the technologist. Radiation optimization: All CT scans at this facility use at least one of these dose optimization techniques: automated exposure control; mA and/or kV adjustment per patient size (includes targeted exams where dose is matched to clinical indication); or iterative reconstruction. COMPARISON: CT OUTSIDE IMAGES CHEST 07/06/2023 6:26 PM FINDINGS: Thyroid: The thyroid gland is within normal limits. Lungs: The tracheobronchial tree is patent bilaterally. There are slight areas of increased interstitial markings within the right upper lobe and right middle lobe. These were present on the earlier study as well. These areas appear less prominent than on the prior study. Pleural spaces: There are no pleural effusions. Heart: The heart and pericardium are within normal limits. Coronary arteries: There are no coronary artery calcifications. Lymph nodes: There is pretracheal, right paratracheal, AP window, precarinal, subcarinal and bilateral hilar adenopathy. These findings are consistent with the patient's history of sarcoidosis. The adenopathy appears essentially unchanged allowing for slight differences in technique. Vasculature: There are slight arteriosclerotic changes of the aorta. Diaphragm: There is a small hiatal hernia. This was present on the earlier study as well. Bones/joints: There are degenerative changes of the thoracic spine. Soft tissues: Unremarkable. IMPRESSION Sarcoidosis as described above. Please see discussion above. THIS DOCUMENT HAS BEEN ELECTRONICALLY SIGNED BY NESTOR ST MD FOR ANY QUESTIONS OR CONCERNS REGARDING THIS REPORT PLEASE CALL [facility] [phone] Leif Lovelace MD IMG CT ORDERABLES documented in this encounter Visit Diagnoses Diagnosis Need for vaccination- Primary Need for prophylactic vaccination and inoculation against unspecified single disease Sarcoidosis Ground glass opacity present on imaging of lung Sarcoidosis Ground glass opacity present on imaging of lung documented in this encounter Discontinued Medications Medication Sig Discontinue Reason Start Date End Da te atorvastatin (LIPITOR) 10 mg tablet Take 2 Tablets by mouth daily. Duplicate order 08/24/2023 liraglutide (VICTOZA 2-ARNOLDO SUBQ) Inject into the skin. Duplicate order 08/24/2023 pantoprazole (PROTONIX) 40 mg tablet Take 40 mg by mouth 2 times daily. Alternate therapy 08/24/2023 omeprazole (PRILOSEC) 40 mg capsule Take 40 mg by mouth daily. Alternate therapy 08/24/2023 ranitidine (ZANTAC) 150 mg capsule Take 150 mg by mouth 2 times daily as needed. Alternate therapy 08/24/2023 documented as of this encounter Historical Medications * This list may reflect changes made after this encounter. Medication Sig Dispensed Refills Start Date End Date VICTOZA 3-ARNOLDO 0.6 mg/0.1 mL (18 mg/3 mL) injectable pen ADMINISTER 1.8 MG UNDER THE SKIN EVERY DAY 05/26/2023 atorvastatin (LIPITOR) 20 mg tablet Take 1 Tablet by mouth at bedtime. 05/29/2023 BD ULTRA-FINE ORIG PEN NEEDLE USE DIRECTED EVERY DAY WITH VICTOZA 01/20/2023 losartan (COZAAR) 25 mg tablet Take 1 Tablet by mouth daily. 11/07/2022 added in this encounter Orders Immunization/Injection Count Last Ordered Date First Ordered Date PNEUMOCOCCAL CONJUGATE VACCI NE 20-VALENT (PCV20) (PREVNAR-20) 0.5 ML IM (6 WKS+) 1 08/24/2023 documented in this encounter Care Teams Systems Test Technician Relationship Specialty Start Date End Date Diane Law, SEARCH COORDINATOR [address] [place] [address] PCP - General 01/21/21 Leif Lovelace MD [address] [place] [address], [address] [place] [id number] Consulting Clinician Pulmonary Disease 08/24/23 documented as of this encounter
--- OUTSIDE RECORDS SUMMARY | 2024-04-26 16:05 | XMS_ITS | Encounter Summary ---
Author Organization [facility] Address [address] [place] [address] Care Team Providers Care Fleet Dispatch Manager Name Role Phone Diane Law SKIN THERAPIST Primary Care Provider [phone] Reason for Referral * (Routine/Next Available) - Receiving Office to Obtain Authorization Specialty Diagnoses / Procedures Referred By Contac t Referred To Contact Procedures CT OUTSIDE IMAGES CHEST Imaging, External Referral ID Status Reason Start Date Expiration Date Visits Requested Visits Authorized [id number] Receiving Office to Obtain Authorization 07/29/2023 1 1 Reason for Visit * (Routine/Next Available) - Receiving Office to Obtain Authorization Specialty Diagnoses / Procedures Referred By Contac t Referred To Contact Procedures CT OUTSIDE IMAGES CHEST Imaging, External Referral ID Status Reason Start Date Expiration Date Visits Requested Visits Authorized [id number] Receiving Office to Obtain Authorization 07/29/2023 1 1 Encounter Details Date Type Department Care Team (Latest Contact Info) Description 07/06/2023 Hospital Encounter [facility] Secondary Reads [place] Discharge Disposition: Home or Self Care Social [...] No 07/20/2018 documented as of this encounter Medications at Time of Discharge Medication Sig Dispensed Refills Start Date End Date acetaminophen (TYLENOL) 325 mg tablet Take 1 Tablet by mouth every 4 hours as needed for Pain. albuterol 90 mcg/actuation inhaler Inhale 2 Puffs as directed every 6 hours as needed for Wheezing. atorvastatin (LIPITOR) 20 mg tablet Take 1 Tablet by mouth at bedtime. 05/29/2023 BD ULTRA-FINE ORIG PEN NEEDLE USE DIRECTED EVERY DAY WITH VICTOZA 01/20/2023 calcium carbonate (TUMS) 200 mg calcium (500 mg) tablet,chewable Take 1 Tablet by mouth every 2 hours as needed. cyclopentolate (CYCLOGYL) 2 % ophthalmic solutionIndications:Ir itis of left eye Place 1 Drop into the left eye 2 times daily. 1 Bottle 07/20/2018 dexlansoprazole (DEXILANT) 60 mg capsule Take 1 Capsule by mouth daily. losartan (COZAAR) 25 mg tablet Take 1 Tablet by mouth daily. 11/07/2022 prednisoLONE (PRED FORTE) 1 % ophthalmic suspensionIndications: Iritis of left eye Place 1 drop into the left eye 4 times daily. 1 Bottle 2 10/13/2018 VICTOZA 3-ARNOLDO 0.6 mg/0.1 mL (18 mg/3 mL) injectable pen ADMINISTER 1.8 MG UNDER THE SKIN EVERY DAY 05/26/2023 omeprazole (PRILOSEC) 40 mg capsule Take 40 mg by mouth daily. 08/24/2023 pantoprazole (PROTONIX) 40 mg tablet Take 40 mg by mouth 2 times daily. 08/24/2023 ranitidine (ZANTAC) 150 mg capsule Take 150 mg by mouth 2 times daily as needed. 4 documented as of this encounter Discharge Disposition Disposition Code Departure Means Destination Home or Self Care documented in this encounter Plan of Treatment Upcoming Encounters Date Type Department Care Team (Late st Contact Info) Description 05/18/2024 15:30 EST Office Visit [facility] Pulmonology [address] [facility], [place] [address] Leif Lovelace MD [address] [place] [address], [address] [place] [address] documented as of this encounter Procedures Procedure Name Priority Date/Time Associated Diagnosis Comments CT OUTSIDE IMAGES CHEST Routine 07/06/2023 13:32 EST documented in this encounter Results * CT OUTSIDE IMAGES CHEST (07/06/2023 13:32 EST) Narrative 07/29/2023 13:32 EST This is a non-reportable exam. External Imaging IMG OTHER IMAGING OR DERABLES documented in this encounter Visit Diagnoses Not on filedocumented in this encounter Care Teams Fleet Dispatch Manager Relationship Specialty Start Date End Date Diane Law NP [address] [place] [address] PCP - General 01/21/21 documented as of this encounter
--- OUTSIDE RECORDS SUMMARY | 2024-04-26 16:05 | XMS_ITS | Encounter Summary ---
Author Organization [facility] Address [address] [place] [address] Care Team Providers Care Baker Head Name Role Phone Reggie Peralta MD Primary Care Provide r Diane Law NP Primary Care Provider [phone] Leif Lovelace MD Unavailable [phone] Encounter Details Date Type Department Care Team (Late st Contact Info) Description 12/29/2019 Lab Requisition [facility] Pathology & Laboratory Medicine - [address] [address] Outr Resulting Lab, Provider Social History Tobacco Use Types Packs/Day Years [...] Info) Description 05/18/2024 15:30 EST Office Visit [facility] Pulmonology [address] [place] [address] [place] [address] Leif Lovelace MD [address] [facility], [facility] 5 [place] [address] documented as of this encounter Procedures Procedure Name Priority Date/Time Associated Diagnosis Comments ZZCOVID-19 TEST [facility] PCR Today 12/29/2019 14:12 EDT COVID-19 TESTING Routine 12/29/2019 14:1 2 EDT documented in this encounter Results * COVID-19 TEST [facility] PCR (12/29/2019 14:12 EDT) Swab ENTIRE NASOPHARYNX / Unknown 12/29/2019 14:12 EDT 12/29/2019 21:39 EDT Provider Outr Resulting Lab MICROBIOLOGY - GENERAL ORDERABLES [facility] [address] [place] [address] * COVID-19 TESTING (12/29/2019 14:12 EDT) COVID-19 rt-PCR Result Negative Negative 12/30/2019 17:24 EDT [facility] Comment: This test has not been FDA cleared or approved. This test has been authorized by FDA under an EUA for use by authorized laboratories. This test has been authorized only for detection of nucleic acid from 2019-nCoV, not for any other viruses or pathogens. This test is only authorized for the duration of the declaration that circumstances exist justifying the authorization of emergency use of in vitro diagnostic tests for detection and/or diagnosis of 2019-nCoV under section 564(b)(1) of Act, 21 U.S.C ?? 360bbb-3(b) (1), unless the authorization is terminated or revoked sooner. Negative results do not preclude 2019-nCoV infection and should not be used as the sole basis for treatment or other patient management decisions. Negative results must be combined with clinical observations, patient history, and epidemiological information. Performed on the Hologic [facility] Fusion instrument Performing Lab [facility] 12/30/2019 17:24 EDT [facility] Swab 12/29/2019 14:1 2 EDT 12/29/2019 21:39 EDT Provider Outr Resulting Lab MICROBIOLOGY - GENERAL ORDERABLES [facility] [address] [place] [address] documented in this encounter Visit Diagnoses Not on filedocumented in this encounter Care Teams Baker Head Relationship Specialty Start Date End Date Reggie Peralta MD [address] [id number] PCP - General 01/20/16 01/20/21 Diane Law NP [address] [place], [place] [id number] PCP - General 01/21/21 Leif Lovelace MD [address] [place] [address], [address] [place] [address] Consulting Clinician Pulmonary Disease 08/24/23 documented as of this encounter
--- OUTSIDE RECORDS SUMMARY | 2024-04-26 16:05 | XMS_ITS | Encounter Summary ---
Author Organization [facility] Address [address] [place] [address] Care Team Providers Care Rail Signal Designer Name Role Phone Reggie Peralta MD Primary Care Provide r Diane Law NP Primary Care Provider [phone] Leif Lovelace MD Unavailable [phone] Reason for Visit * Reason Onset Date Comments Appointment Related 08/04/2018 Encounter Details Date Type Department Care Team (Late st Contact Info) Description 08/04/2018 Telephone [facility] Ophthalmology - [address] [address] Isreal Reinoso MD [address] [facility], [address] [place] [address] Appointment Related Social History Tobacco Use Types Packs/Day Years [...] No 07/20/2018 documented as of this encounter Miscellaneous Notes * Telephone Encounter - Alina Mayen - 08/04/2018 0531 EST Amy called to cancel appointment with Isreal Reinoso MD on today 08-04-18 at 10:30 am due to bad roads. Patient would like a call back to reschedule? yes documented in this encounter Plan of Treatment Upcoming Encounters Date Type Department Care Team (Late st Contact Info) Description 05/18/2024 15:30 EST Office Visit [facility] Pulmonology [address] [facility], [facility] [place] [address] Leif Lovelace MD [address] [place] [address], [facility] [address] [place] [phone] documented as of this encounter Visit Diagnoses Not on filedocumented in this encounter Care Teams Rail Signal Designer Relationship Specialty Start Date End Date Reggie Peralta MD 4 [facility] [address] [place], [place] [address] PCP - General 01/20/16 01/20/21 Diane Law NP [address] [place], [place] [address] PCP - General 01/21/21 Leif Lovelace MD [address] [facility], [address] [place] [phone] Consulting Clinician Pulmonary Disease 08/24/23 documented as of this encounter
--- OUTSIDE RECORDS SUMMARY | 2024-04-26 16:05 | XMS_ITS | Encounter Summary ---
Author Organization [facility] Address [address] [place] [address] Care Team Providers Care Certified Coatings Inspector Name Role Phone Reggie Peralta MD Primary Care Provide r Diane Law NURSING INFORMATICS ANALYST Primary Care Provider [phone] Leif Lovelace MD Unavailable [phone] Encounter Details Date Type Department Care Team (Late st Contact Info) Description 01/15/2021 Lab Requisition [facility] Pathology & Laboratory Medicine - [address] [address] Diane Law, NURSING INFORMATICS ANALYST [address] [place] [address] Encounter for other general examination Social History Tobacco Use Types Packs/Day Years [...] Info) Description 05/18/2024 15:30 EST Office Visit [facility] Pulmonology [address] [facility], [place] [address] Leif Lovelace MD [address] [place] [address], [facility] 5 [place] [address] documented as of this encounter Procedures Procedure Name Priority Date/Time Associated Diagnosis Comments SURGICAL PATHOLOGY Today 01/14/2021 15 :00 EDT Encounter for other general examination documented in this encounter Results * SURGICAL PATHOLOGY (01/14/2021 15:00 EDT) Final Diagnosis Attention patients The following pathology results have been interpreted by your pathologist and may be available to you before your health provider has had the opportunity to review them. Please allow time for your provider to receive these results and explore management options, if applicable. A. SKIN OF BACK, RIGHT UPPER, SHAVE BIOPSY: - Melanocytic nevus, compound type, with unusual architectural features and moderate cytologic atypia. - Nevus does not extend to edges of shave biopsy specimen in the plane of the sections examined. 01/16/2021 9:19 [facility] Attestation By the signature below, the attending physician certifies that they have 1) personally conducted a gross and/or microscopic examination of the described specimen(s), and/or personally interpreted the results of laboratory testing of the described specimen(s), and 2) personally rendered or confirmed the above diagnosis. 01/16/2021 9:19 [facility] at 0919 Microscopic Description The epidermis is hyperplastic with elongate and anastomosing rete ridges. There is a compound proliferation of melanocytes with both epidermal and dermal components. The junctional melanocytes are arranged in nests and as individual cells. The nests predominate but vary to moderate degree in size, shape, and spacing. The nests are located between and the sides of rete ridges, in addition to at the tips of the ridges. Nests bridge rete ridges. Focally, individual melanocytes are prominent and unevenly spaced but show no confluent growth or well-developed upward migration. The melanocytes are enlarged and have ill-defined cytoplasm containing melanin pigment. The nuclei show a moderate degree of size and shape variation with occasional large, irregular forms. The dermal component consists of nests and cords of similar melanocytes that show product analyst maturation with descent. There is papillary dermal fibroplasia. 01/16/2021 9:19 EDT [facility] Clinical History Nevus right upper back; R/O atypia 01/16/2021 9:19 T [facility] Gross Description A. Received in formalin labelled with proper patient identification (initials L, A) and R upper back a irregular shave biopsy of burgess skin (0.7 x 0.5 x 0.1 cm) a central dark brown macule (0.4 x 0.3 cm). The specimen in bisected and submitted entirely A1. NGOC BATES(ASCP) 01/15/2021 15:59 01/16/2021 9:19 T [facility] Performing Lab [facility] 01/16/2021 9:19 T [facility] Scanned Images 01/16/2021 9:19 T [facility] Tissue TISSUE SPECIMEN FROM SKIN / Unknown 01/14/2021 15:00 EDT 01/15/2021 15:30 EDT Diane Law NP PATHOLOGY ORDERABLES [facility] [address] [place] [address] documented in this encounter Visit Diagnoses Diagnosis Encounter for other general examination documented in this encounter Care Teams Certified Coatings Inspector Relationship Specialty Start Date End Date Reggie Peralta MD [address] [place] [id number] PCP - General 01/20/16 01/20/21 Diane Law, BHUPENDRA [address] [place] [address] PCP - General 01/21/21 Leif Lovelace MD [address] [place] [address], [address] [place] [address] Consulting Clinician Pulmonary Disease 08/24/23 documented as of this encounter
--- OUTSIDE RECORDS SUMMARY | 2024-04-26 16:05 | XMS_ITS | Encounter Summary ---
Author Organization [facility] Address [address] [place] [address] Care Team Providers Care Commercial Loan Processor Name Role Phone Reggie Peralta MD Primary Care Provide r Encounter Details Date Type Department Care Team (Late st Contact Info) Description 11/03/2018 Orders Only [facility] Pulmonology & Critical Care - [address] [address] Karli Bermudez PA-C [address] [facility] Medical Office Building, [address] [place] [address] Sarcoidosis (Primary Dx) Social History Tobacco Use Types Packs/Day Years [...] Description 05/18/2024 15:[address] [facility] Pulmonology [address] [facility], [facility] [place] [address] Leif Lovelace MD [address] [facility], [address] [place] [address] documented as of this encounter Visit Diagnoses Diagnosis Sarcoidosis- Primary documented in this encounter Care Teams Commercial Loan Processor Relationship Specialty Start Date End Date Reggie Peralta MD [address] [place] [address] PCP - General 01/20/16 01/20/21 documented as of this encounter
--- OUTSIDE RECORDS SUMMARY | 2024-04-26 16:05 | XMS_ITS | Referral Summary ---
Author Organization [facility] Address [address] [place] [address] Care Team Providers Care Tectonophysicist Name Role Phone Diane Law NP Primary Care Provider [phone] Leif Lovelace MD Unavailable [phone] Allergies No known active allergies Medications [...] (PREVNAR-20) 0.5 mL IM (6 wks+) 08/24/2023 Social History Tobacco Use Types Packs/Day Years [...] on file Sexual Orientation Not on file Last Filed Vital Signs Vital Sign Reading [...] Body Mass Index 30.5 08/24/2023 1346 EST Functional Status Functional Status Response Date of [...] concentrating, remembering, or making decisions? No 07/20/2018 Plan of Treatment Upcoming Encounters Date Type Department Care Team (Late st Contact Info) Description 05/18/2024 15:30 EST Office Visit [facility] Pulmonology [address] [facility], [place] [address] Leif Lovelace MD [address] [facility], [facility] 5 [place] [address] Procedures Procedure Name Priority Date/Time Associated Diagnosis [...] procedure. ??Total sedation time was ??20 ??minutes. [place] Bowel Prep Right Colon: 3 ? Transverse [...] MD Winston Powers MD GI PROCEDURE ORDBruno GAMEZDANIEL from Last 3 Months or Most Recently Relevant to Health Maintenance Care Teams Tectonophysicist Relationship Specialty Start Date End Date Diane Law NP [address] [place] [address] PCP - General 01/21/21 Leif Lovelace MD [address] [place] [address], [address] [place] [address] Consulting Clinician Pulmonary Disease 08/24/23
--- OUTSIDE RECORDS SUMMARY | 2024-04-26 16:05 | XMS_ITS | Encounter Summary ---
Author Organization [facility] Address [address] [place] [address] Care Team Providers Care Guest Experience Representative Name Role Phone Reggie Peralta MD Primary Care Provide r Encounter Details Date Type Department Care Team (Late Contact Info) Description 09/27/2017 Results Only [facility] [phone] Unknown, Provider, Social History Tobacco Use Types Packs/Day Years Used Date Smoking Tobacco: Never Smokeless Tobacco: Never Sex and Gender Information Value Date Recorded Sex Assigned at Not on file Gender Identity Not on file Sexual Orientation Not on file documented as of this encounter Plan of Treatment Upcoming Encounters Date Type Department Care Team (Late Contact Info) Description 05/18/2024 15:30 EST Office Visit [facility] Pulmonology [address] [place] [id number] Leif Lovelace MD 111 [facility] 5 [place] [address] documented as of this encounter Procedures Procedure Name Priority Date/Time Associated Diagnosis Comments GLUCOSE, GLUCOMETER Routine 09/27/2017 7 :50 EDT documented in this encounter Results * (ABNORMAL) GLUCOSE, GLUCOMETER (09/27/2017 7:50 EDT) Glucose, Fingerstick 141(H) 70 - 100 mg/dl 09/27/2017 7:51 EDT [facility] Director Of Employer Services ID [id number] 09/27/2017 7:51 EDT [facility] Comment:Test performed by [facility] BLOOD SPECIMEN / Unknown 09/27/2017 7:50 EDT 09/27/2017 7:51 EDT Provider Unknown CHEMISTRY & BLOOD GA S ORDERABLES Performing Organization Address City/State/[facility] Co de Phone Number [facility] [address] [place] [address] documented in this encounter Visit Diagnoses Not on filedocumented in this encounter Care Teams Guest Experience Representative Relationship Specialty Start Date End Date Reggie Peralta MD [address] [place] [address] PCP - General 01/20/16 01/20/21 documented as of this encounter
--- OUTSIDE RECORDS SUMMARY | 2024-04-26 16:05 | XMS_ITS | Encounter Summary ---
Author Organization [facility] Address [address] [place] [address] Care Team Providers Care Supervisor Frame Sample And Pattern Name Role Phone Reggie Peralta MD Primary Care Provide r Reason for Visit * Reason Comments Eye Problem Left eye pain for 2 days pain-- red- light sensitive--DM II-IBS- vision blurry lid swollen- Pain 12/19- Encounter Details Date Type Department Care Team (Late st Contact Info) Description 07/20/2018 15:15 EST Office Visit [facility] Ophthalmology - [address] [address] Makenna Johnson MD [address] [place] [address], [address] [place] [address] Social History Tobacco Use Types Packs/Day Years [...] No 07/20/2018 documented as of this encounter Ordered Prescriptions Prescription Sig Dispensed Refills Start Date End Da te cyclopentolate (CYCLOGYL) 2 % ophthalmic solutionIndications:Iritis of left eye Place 1 Drop into the left eye 2 times daily. 1 Bottle 07/20/2018 prednisoLONE (PRED FORTE) 1 % ophthalmic suspensionIndications:Evelyn is of left eye Place 1 Drop into the left eye every 2 hours while awake. 1 Bottle 1 07/20/2018 10/07/2018 documented in this encounter Progress Notes * Makenna Johnson MD - 07/20/2018 1515 EST Chief Complaint Patient presents with ??? Eye Problem Left eye pain for 2 days pain-- red- light sensitive--DM II-IBS- vision blurry lid swollen- Pain 12/19- HPI The patient is a 58 y.o. female who complains that she has had two days of left eye swelling and photophobia. No discharge. History of iridocyclitis, one episode, in the past. Her doctor at [facility] wouldn't see her without a new referral and she went to ER, who sent her here. Today's: Intraocular pressure was 16 in the right eye and 16 in the left eye using Applanation. Past Ocular History Past Ocular Surgery/Procedures: Family Ocu. history Glaucoma: Macular Degeneration: Recent HbA1c: Lab Results Component Value Date HGBA1C 5.2 06/30/2000 Family History Problem Relation Age of Onset ??? Diabetes Mother ??? High Cholesterol Mother ??? High Blood Pressure Mother ??? Arthritis Father ??? Diabetes Father ??? Cancer Father 82 skin ??? Diabetes Brother Right Eye: NL Left Eye: Pain/Soreness, Redness, Glare or Light Sensitivity, Itching, Burning, Eyelid Swelling, Dryness Visual Aid: Glasses Current Rx Age Location: Left eye Pain: 6.0 Quality: Aching, Sharp Severity: Moderate Duration: Days Timing: Constant Lasts: Continuous Context: Left eye pain for 2 days pain-- red- light sensitive--DM II-IBS- vision blurry lid swollen- Pain 12/19- Modifying factors: Eye Doctor is Zaida yanez OD Associated Signs & Symptoms: no floaters yes ROS Constitutional: NL ENT/Mouth NL Cardiovascular: Respiratory: NL Gastrointestinal: Inflammatory Bowel Disease Genitourinary: Musculoskeletal: NL Integumentary: Neurologic: Headache Psychiatric: Endocrine: Diabetes(diabetes new DX) Hematologic: Immunologic: NL Digital Forensics Examiner: Exposures: Other: Allergies include: Patient has no known allergies. Patient Active Problem List Diagnosis ??? Gastroesophageal reflux disease with esophagitis ??? Hiatal hernia Outpatient Medications Marked as Taking for the 07/20/18 encounter (Office Visit) with Makenna Johnson MD Medication Sig ??? acetaminophen (TYLENOL) 325 mg tablet Take 325 mg by mouth every 4 hours as needed for Pain. ??? albuterol 90 mcg/actuation inhaler Inhale 2 Puffs as directed every 6 hours as needed for Wheezing. ??? calcium carbonate (TUMS) 200 mg calcium (500 mg) tablet,chewable Take 1 Tab by mouth every 2 hours as needed. ??? dexlansoprazole (DEXILANT) 60 mg capsule Take 60 mg by mouth daily. ??? omeprazole (PRILOSEC) 40 mg capsule Take 40 mg by mouth daily. ??? ranitidine (ZANTAC) 150 mg capsule Take 150 mg by mouth 2 times daily as needed. Past Medical History: Diagnosis Date ??? Anemia ??? Asthma ??? GERD (gastroesophageal reflux disease) ??? Gestational diabetes ??? Irritable bowel syndrome Past Surgical History: Procedure Laterality Date ??? SECTION ??? GASTRIC FUNDOPLICATION 12/23/2005 ??? KNEE SURGERY Left Patient reports that has never smoked. she has never used smokeless tobacco. She reports that she drinks alcohol. She reports that she does not use drugs. Base Eye Exam Visual Acuity (Snellen - Linear) Right Left Dist cc 20/40 20/70 Dist ph cc 20/25 NI Tonometry (Applanation, 15:48) Right Left Pressure 16 16 Pupils Pupils Dark Light Shape React APD Right PERRL 4 2 Round Slow None Left PERRL 4 2 Round Slow None Visual Guerra Right Left Full Full Extraocular Movement Right Left Full, Ortho Full, Ortho Neuro/Psych Oriented x3: Yes Mood/Affect: Normal Dilation Both eyes: paremyd, 1.0% Mydriacyl @ 16:04 Added 1% myd to left eye @ 4:25pm Slit Lamp and Fundus Exam External Exam Right Left External Normal Normal Slit Lamp Exam Right Left Lids/Lashes Normal Normal Conjunctiva/Sclera White and quiet White and quiet Cornea mild inf SPK few SPK, no dendrites Anterior Chamber Deep and quiet 3+ Cell Iris Round and reactive Round and reactive Lens Clear Clear Vitreous Normal Posterior vitreous detachment, no cells noted Fundus Exam Right Left Disc Normal Normal C/D Ratio 0.2 v 0.2 v Macula Normal Normal Vessels Normal Normal Periphery Normal Normal IMPRESSION & PLAN: Amy Alexander was seen today at the request of Dr. Mick Mcdowell at [facility]. Amy complains of two daysof left lid swelling and photophobia. She had an iridocyclitis in the past and went to [facility] at that time. It was thought to possibly be related to her IBD. On today's exam, there is iritis of the left eye. I am not appreciating any corneal involvement, not vitreal involvement. She has a flat skin lesion on the medial side of her nose, and I told her that if she should develop blisters she should let us or her PCP know to start anti-virals. Start meds below. DALILA recinos and Dr. Reinoso. She will follow with Dr. Reinoso on Wednesday. Amy was seen today for eye problem. Diagnoses and all orders for this visit: Iritis of left eye - prednisoLONE (PRED FORTE) 1 % ophthalmic suspension; Place 1 Drop into the left eye every 2 hourswhile awake. - cyclopentolate (CYCLOGYL) 2 % ophthalmic solution; Place 1 Drop into the left eye 2 times daily. SPK (superficial punctate keratitis), bilateral I have reviewed the patient's past medical, family, social and surgical history. I have also reviewed the patient's medications, allergies, and problem list. I performed my own HPI and have reviewed the [facility]'s ROS as well. I personally completed this exam myself. Makenna Johnson MD I am scribing for Dr. Makenna Johnson while she is personally performing the service. Signature: KAYLA Rose The patient was instructed to call our office or go to emergency room if worse vision, worse symptoms, or new/other concerns arise. documented in this encounter Plan of Treatment Upcoming Encounters Date Type Department Care Team (Late st Contact Info) Description 05/18/2024 15:30 EST Office Visit [facility] Pulmonology [address] [facility], [facility] [place] [address] Leif Lovelace MD [address] [facility], [address] [place] [address] documented as of this encounter Visit Diagnoses Diagnosis Iritis of left eye- Primary SPK (superficial punctate keratitis), bilateral documented in this encounter Eye Exam Visual Acuity (Snellen - Linear) Right eye Left eye Dist cc 20/40 20/70 Dist ph cc 20/25 NI Tonometry (Applanation, 15:48) Right eye Left eye Pressure 16 16 Pupils Pupils Dark Light Shape React APD Right eye PERRL 4 2 Round Slow None Left eye PERRL 4 2 Round Slow None Visual Guerra Right eye Left eye Full Full Extraocular Movement Right eye Left eye Full, Ortho Full, Ortho Neuro/Psych Oriented x3: Yes Mood/Affect: Normal Dilation Both eyes: paremyd, 1.0% Myd riacyl @ 16:04 Added 1% myd to left eye @ 4:25pm External Exam Right eye Left eye External Normal Normal Slit Lamp Exam Right eye Left eye Lids/Lashes Normal Normal Conjunctiva/Sclera White and quiet White and haresh et Cornea mild inf SPK few SPK, no dend rites Anterior Chamber Deep and quiet 3+ Cell Iris Round and reactive Round and john ctive Lens Clear Clear Vitreous Normal Posterior vitreo us detachment, no cells noted Fundus Exam Right eye Left eye Disc Normal Normal C/D Ratio 0.2 v 0.2 v Macula Normal Normal Vessels Normal Normal Periphery Normal Normal Care Teams Supervisor Frame Sample And Pattern Relationship Specialty Start Date End Date Reggie Peralta MD [address] [facility] [address] [place], [place] [address] PCP - General 01/20/16 01/20/21 documented as of this encounter
--- OUTSIDE RECORDS SUMMARY | 2024-04-26 16:05 | XMS_ITS | Encounter Summary ---
Author Organization [facility] Address [address] [place] [address] Care Team Providers Care Barrel Bander Name Role Phone Diane Law STORE MGR Primary Care Provider [phone] Reason for Referral * (Routine/Next Available) - Receiving Office to Obtain Authorization Specialty Diagnoses / Procedures Referred By Contac t Referred To Contact Procedures XR OUTSIDE IMAGES CHEST Imaging, External Referral ID Status Reason Start Date Expiration Date Visits Requested Visits Authorized [id number] Receiving Office to Obtain Authorization 07/29/2023 1 1 Reason for Visit * (Routine/Next Available) - Receiving Office to Obtain Authorization Specialty Diagnoses / Procedures Referred By Contac t Referred To Contact Procedures XR OUTSIDE IMAGES CHEST Imaging, External Referral ID Status Reason Start Date Expiration Date Visits Requested Visits Authorized [id number] Receiving Office to Obtain Authorization 07/29/2023 1 1 Encounter Details Date Type Department Care Team (Latest Contact Info) Description 07/12/2023 - 07/12/2023 23:59 EST Hospital Encounter [facility] Secondary Reads [place] Discharge Disposition: [...] times daily. 1 Bottle 2 10/13/2018 VICTOZA 3-ARNOLOD 0.6 mg/0.1 mL (18 mg/3 mL) injectable pen ADMINISTER 1.8 MG UNDER THE SKIN EVERY DAY 05/26/2023 omeprazole (PRILOSEC) 40 mg capsule Take 40 mg by mouth daily. 08/24/2023 pantoprazole (PROTONIX) 40 mg tablet Take 40 mg by mouth 2 times daily. 08/24/2023 ranitidine (ZANTAC) 150 mg capsule Take 150 mg by mouth 2 times daily as needed. documented as of this encounter Discharge Disposition Disposition Code Departure Means Destination Home or Self Care documented in this encounter Plan of Treatment Upcoming Encounters Date Type Department Care Team (Late st Contact Info) Description 05/18/2024 15:30 EST Office Visit [facility] Pulmonology [address] [place] [address] Leif Lovelace MD [address] [facility], [facility], [address] [place] [address] documented as of this encounter Procedures Procedure Name Priority Date/Time Associated Diagnosis Comments XR OUTSIDE IMAGES CHEST Routine 07/12/2023 13:31 EST documented in this encounter Results * XR OUTSIDE IMAGES CHEST (07/12/2023 13:31 EST) Narrative 07/29/2023 13:32 EST This is a non-reportable exam. External Imaging IMG OTHER IMAGING OR DERABLES documented in this encounter Visit Diagnoses Not on filedocumented in this encounter Care Teams Barrel Bander Relationship Specialty Start Date End Date Diane Law, STORE MGR [address] [place] [id number] PCP - General 01/21/21 documented as of this encounter
--- OUTSIDE RECORDS SUMMARY | 2024-04-26 16:05 | XMS_ITS | Encounter Summary ---
Author Organization [facility] Address [address] [place] [address] Care Team Providers Care Plant Sciences Professor Name Role Phone Diane Law WATER RESTORATION TECHNICIAN Primary Care Provider [phone] Reason for Referral * Referral (Routine/Next Available) - Authorization Not Required Specialty Diagnoses / Procedures Referred By Contac t Referred To Contact Diagnoses Hiatal hernia Procedures UPPER ENDOSCOPY (EGD) Diane Law, WATER RESTORATION TECHNICIAN [address] [place] [address] Referral ID Status Reason Start Date Expiration Date Visits Requested Visits Authorized [id number] Authorization Not Required 07/16/2023 1 1 Reason for Visit * Auth/Cert (Routine) Specialty Diagnoses / Procedures Referred By Contac t Referred To Contact Referral ID Status Reason Start Date Expiration Date Visits Re quested Visits Authorized [id number] 1 1 Encounter Details Date Type Department Care Team (Late st Contact Info) Description 07/30/2023 13:13 EST - 07/30/2023 23:59 EST Hospital Encounter [facility] [place] [address] [place], [place] [address] Cait Murphy MD [address] [place] [id number] Hiatal hernia Discharge Disposition: Home or Self Care Social [...] Sign Reading Time Taken Comments Blood Pressure 112/69 07/30/2023 1600 EST Pulse - - Temperature 36.6 ??C (97.8 ??F) 07/30/2023 1600 EST Respiratory Rate 17 07/30/2023 1600 EST Oxygen Saturation 95% 07/30/2023 1600 EST Inhaled Oxygen Concentration - - Weight 72.5 kg (159 lb 12.8 oz) 07/30/2023 1331 EST Height 154.9 cm (5' 1) 07/30/2023 1331 EST Body Mass Index 30.19 07/30/2023 1331 EST documented in this encounter Functional Status [...] capsule Take 1 Capsule by mouth daily. lansoprazole (PREVACID) 15 mg capsule Take 1 Capsule by mouth daily. losartan (COZAAR) 25 mg tablet Take 1 Tablet by mouth daily. 11/07/2022 metFORMIN (GLUCOPHAGE) 500 mg tablet Take 1 Tablet by mouth daily. prednisoLONE (PRED FORTE) 1 % ophthalmic suspensionIndications: Iritis of left eye Place 1 drop into the left eye 4 times daily. 1 Bottle 2 10/13/2018 sucralfate (CARAFATE) 1 gram tablet Take 1 Tablet by mouth 4 times daily. VICTOZA 3-ARNOLDO 0.6 mg/0.1 mL (18 mg/3 mL) injectable pen ADMINISTER 1.8 MG UNDER THE SKIN EVERY DAY 05/26/2023 atorvastatin (LIPITOR) 10 mg tablet Take 2 Tablets by mouth daily. 08/24/2023 liraglutide (VICTOZA 2-ARNOLDO SUBQ) Inject into the skin. 2023 omeprazole (PRILOSEC) 40 mg capsule Take 40 mg by mouth daily. 08/24/2023 pantoprazole (PROTONIX) 40 mg tablet Take 40 mg by mouth 2 times daily. 08/24/2023 ranitidine (ZANTAC) 150 mg capsule Take 150 mg by mouth 2 times daily as needed. documented as of this encounter Discharge Disposition Disposition Code Departure Means Destination Home or Self Care documented in this encounter H&P Notes * Cait Murphy MD - 07/30/2023 1430 EST Endoscopy Sedation for Procedure History & Physical Date: 07/30/2023 Time: 15:13 Location: [facility] Endoscopy Planned Procedure: Upper Endoscopy Chief Complaint/Indications for Procedure: epigastric pain History Previous Complication with Sedation and/or Anesthesia? No Allergies: No Known Allergies Current Medications: Current Outpatient Medications Medication acetaminophen (TYLENOL) 325 mg tablet albuterol 90 mcg/actuation inhaler atorvastatin (LIPITOR) 10 mg tablet calcium carbonate (TUMS) 200 mg calcium (500 mg) tablet,chewable cyclopentolate (CYCLOGYL) 2 % ophthalmic solution dexlansoprazole (DEXILANT) 60 mg capsule lansoprazole (PREVACID) 15 mg capsule liraglutide (VICTOZA 2-ARNOLDO SUBQ) metFORMIN (GLUCOPHAGE) 500 mg tablet omeprazole (PRILOSEC) 40 mg capsule pantoprazole (PROTONIX) 40 mg tablet prednisoLONE (PRED FORTE) 1 % ophthalmic suspension ranitidine (ZANTAC) 150 mg capsule sucralfate (CARAFATE) 1 gram tablet Current Facility-Administered Medications Medication Route Frequency sodium chloride 0.9 % (NS) infusion intravenous PRN Or lactated ringers (LR) infusion intravenous PRN lidocaine (PF) 10 mg/mL (1 %) injection 2 mg intradermal PRN lidocaine (PF) 10 mg/mL (1 %) injection 2 mg intradermal PRN ondansetron (PF) (ZOFRAN) injection 4 mg intravenous Once PRN sodium chloride 0.9 % (flush) flush 5 mL intravenous PRN Past Medical History: Past Medical History: Diagnosis Date Anemia Asthma GERD (gastroesophageal reflux disease) Gestational diabetes Irritable bowel syndrome Social History: Past Surgical History: Procedure Laterality Date SECTION GASTRIC FUNDOPLICATION 12/23/2005 KNEE SURGERY Left Social History Tobacco Use Smoking status: Never Smokeless tobacco: Never Substance Use Topics Alcohol use: Not Currently Comment: occ Family History: Family History Problem Relation Age of Onset Diabetes Mother High Cholesterol Mother High Blood Pressure Mother Arthritis Father Diabetes Father Cancer Father 82 skin Diabetes Brother Review of Systems as pertinent: Physical Exam Vital Signs: BP 124/71 (BP Cuff Location: Left arm) Temp 36.5 ??C (97.7 ??F) (Oral) Resp 16 Ht 154.9 cm (61) Wt 72.5 kg (159 lb 12.8 oz) SpO2 98% BMI 30.19 kg/m?? Heart Examination: Cardiac Regularity: Regular Respiratory Examination: Respiratory Pattern: Regular Breath Sounds Right: Clear Breath Sounds Left: Clear Abdominal Examination: Soft, non-tender, bowel sounds normal, no masses, no organomegaly Additional physical exam related to the proposed procedure, patient activity, disease state and treatment as pertinent: Assessment Previous complications with sedation or anesthesia?: No Airway Concerns: None/NA Anesthesia Classification: ASA 2 Plan: Proceed with sedation for procedure Fasting Time: Date of Last Liquid: 07/30/23 Time of Last Liquid: 0000 Date of Last Solid: 07/29/23 Time of Last Solid: 1700 Patient Appropriate Candidate for Planned Sedation?: Yes Cait Murphy MD 07/30/2023 15:13 documented in this encounter Plan of Treatment Upcoming Encounters Date Type Department Care Team (Late st Contact Info) Description 05/18/2024 15:30 EST Office Visit [facility] Pulmonology [address] [facility], [place] [address] Leif Lovelace MD [address] [facility], [facility] [address] [place] [address] documented as of this encounter Procedures Procedure Name Priority Date/Time Associated Diagnosis Comments ECG REPORT - SCANNED 08/03/2023 11:39 EST UPPER ENDOSCOPY (EGD) Routine 07/30/2023 14:30 EST Hiatal hernia POCT GLUCOSE, INTERFACED Routine 07/30/2023 13:50 EST documented in this encounter Results * ECG REPORT - SCANNED (08/03/2023 11:39 EST) 08/03/2023 11:3 9 EST Scan 2 Software Engineer PROCEDURE/MINOR ELAINA GICAL ORDERABLES * UPPER ENDOSCOPY (EGD) (07/30/2023 14:30 EST) Anatomical Region Laterality Modality Endoscopy Narrative 07/30/2023 14:30 EST [facility] ?? [address] [address] ?? Patient Name ?DALLAS ALEXANDER Date of ?1960 Record Number ?[id number] Date/Time of Procedure ?07/30/2023, 02:30:00 PM Endoscopist ?Cait Murphy MD ?? Radiographic Technologist ? Referring Physician(s) ?? Chata Zuniga. Anesthesiologist ? Procedure Performed: Upper Endoscopy (EGD) Indications for Exam: epigastric pain Instruments: ? [id number] ([id number]) Medications: ?Fentanyl 100 mcg, Versed 4 mg, IV Benadryl 25mg I was in continuous face to face attendance during the administration of moderate sedation services that were monitored by an independent trained observer who had no other duties during the procedure. ? Visualization: ? Good ?Tolerance: Good ?Complications: None ? Extent of Exam: ?Second Part of Duodenum ? Limitations: ?? Procedure Technique: A physical exam was performed. Informed consent was obtained from the patient after explaining all the risks (perforation, bleeding, infection and adverse effects to the medicine) , benefits and alternatives to the procedure which the patient appeared to understand and so stated. ??The patient was connected to the monitoring devices and placed in the left lateral position. Continuous oxygen was provided with a nasal cannula and IV medicine administered by an Anesthesiologist through an indwelling cannula. After adequate sedation was achieved, the esophagus was intubated and the scope advanced under direct visualization to the Second Part of Duodenum. The Second Part of Duodenum was identified by visual landmarks. The scope was subsequently removed slowly while carefully examining the color, texture, anatomy, and integrity of the mucosa on the way out. The patient was subsequently transferred to the recovery area in satisfactory condition. The following findings were noted: Findings: Esophagus: Mild erythema and small mucosal breakage at GE junction consistent with LA-A esophagitis. Stomach: scattered fundic gland polyps. Moderate hiatal hernia seen on retroflexion Duodenum: normal bulb and distal portion Endoscopic Diagnosis: Esophagus: Mild erythema and small mucosal breakage at GE junction consistent with LA-A esophagitis. Stomach: scattered fundic gland polyps. Moderate hiatal hernia seen on retroflexion Duodenum: normal bulb and distal portion Recommendations: Recommend PPI daily for likely acid reflux symptoms Sedation Start: 03:14:35 PM ?? Sedation End: 03:22:47 PM Signature: Cait Murphy MD, Mateus. This note was electronically signed on 07/30/2023 03:27:37 PM By Cait Murphy MD M.D. Diane Law WATER RESTORATION TECHNICIAN GI PROCEDURE ORDERAB LES * POCT GLUCOSE, INTERFACED (07/30/2023 13:50 EST) Glucose, POC 96 70 - 100 mg/dL 07/30/2023 13:52 EST [facility] HN LAB POC COMMENT (GLUCOSE) Test Performed in Endoscopy 07/30/2023 13:52 EST [facility] Blood CAPILLARY BLOOD / Unknown 07/30/2023 13:50 EST 07/30/2023 13:52 EST Cait Murphy MD POINT OF CARE TEST O RDERABLES Performing Organization Address City/State/[facility] Co de Phone Number [facility] [address] [place] [address] documented in this encounter Visit Diagnoses Diagnosis Hiatal hernia Diaphragmatic hernia without mention of obstruction or gangrene documented in this encounter Administered Medications Inactive Administered Medications - up to 3 most recent administrations Medication Order MAR Action Action Date Dose Rate Site diphenhydrAMINE (BENADRYL) injection intravenous, As needed, Starting on Wed07/30/23 at 1518, Until Wed07/30/23 at 1518, Routine, Intraprocedure Given 07/30/2023 15:18 EST 25 mg IV fentaNYL citrate (PF) injection intravenous, As needed, Starting on Wed07/30/23 at 1515, Until Wed07/30/23 at 1517, Routine, Intraprocedure Given 07/30/2023 15:17 EST 50 mcg IV Given 07/30/2023 15:15 EST 50 mcg IV lactated ringers (LR) infusion 30 mL/hr, intravenous, PRN, Starting on Wed07/30/23 at 1328, Until Wed08/01/23 at 0203, Routine, Preprocedure New Bag 07/30/2023 13:47 EST 30 mL/hr 30 mL/hr midazolam (VERSED) injection intravenous, As needed, Starting on Wed07/30/23 at 1515, Until Wed07/30/23 at 1517, Routine, Intraprocedure Given 07/30/2023 15:17 EST 2 mg IV Given 07/30/2023 15:15 EST 2 mg IV documented in this encounter Historical Medications * This list may reflect changes made after this encounter. Medication Sig Dispensed Refills Start Date End Date metFORMIN (GLUCOPHAGE) 500 mg tablet Take 1 Tablet by mouth daily. lansoprazole (PREVACID) 15 mg capsule Take 1 Capsule by mouth daily. sucralfate (CARAFATE) 1 gram tablet Take 1 Tablet by mouth 4 times daily. liraglutide (VICTOZA 2-ARNOLDO SUBQ) Inject into the skin. 2023 atorvastatin (LIPITOR) 10 mg tablet Take 2 Tablets by mouth daily. 08/24/2023 added in this encounter Orders Medications Ordered That Bobby ht Not Have Been Administered Count Last Ordered Date First Ordered Date lidocaine (PF) 10 mg/mL (1 % ) injection 2 mg 2 07/30/2023 ondansetron (PF) (ZOFRAN) injection 4 mg 1 07/30/2023 sodium chloride 0.9 % (flush) flush 5 mL 1 07/30/2023 sodium chloride 0.9 % (NS) infusion 1 07/30 documented in this encounter Care Teams Plant Sciences Professor Relationship Specialty Start Date End Date Diane Law, BHUPENDRA [address] [place] [address] PCP - General 01/21/21 documented as of this encounter
--- OUTSIDE RECORDS SUMMARY | 2024-04-26 16:05 | XMS_ITS | Encounter Summary ---
Author Organization [facility] Address [address] [place] [address] Care Team Providers Care Ticket Dispatcher Name Role Phone Reggie Peralta MD Primary Care Provide r Encounter Details Date Type Department Care Team (Late Contact Info) Description 07/22/2018 Phlebotomy Only [address] [address] Slip Cover Estimator, Outpatient Iritis of left eye (Primary Dx) Social History Tobacco Use Types [...] Info) Description 05/18/2024 15:30 EST Office Visit [facility] Pulmonology [address] [facility], [place] [address] Leif Lovelace MD [address] [facility], [address] [place] [phone] documented as of this encounter Procedures Procedure Name Priority Date/Time Associated Diagnosis Comments CCP ANTIBODIES Routine 07/22/2018 16:56 EST Iritis of left eye SYPHILIS SEROLOGY Routine 07/22/2018 16: 56 EST Iritis of left eye LYME AB Routine 07/22/2018 16:56 EST Iritis of left eye HLA B27 SCREEN, DNA Routine 07/22/2018 1 6:56 EST Iritis of left eye COMPLETE BLOOD COUNT AND DIFFERENTIAL Routine 07/22/2018 16:56 EST Iritis of left eye ANGIOTENSIN CONVERTING ENZYME (ANAIS) Routine 07/22/2018 16:56 EST Iritis of left eye CREATININE Routine 07/22/2018 16:56 EST Iritis of left eye documented in this encounter Results * SYPHILIS SEROLOGY (07/22/2018 16:56 EST) Syphilis Serology Negative 07/25/2018 14:22 EST [facility] Comment:Reference Range: Neg ative Blood specimen (specimen) BLOOD SPECIMEN / Unknown 07/22/2018 16:56 EST 07/22/2018 17:42 EST Isreal Reinoso MD IMMUNOLOGY AND SEROL OGY ORDERABLES [facility] [address] [place] [address] * LYME AB (07/22/2018 16:56 EST) Lyme AB Negative 07/25/2018 14:14 EST [facility] Comment:Reference Range: Neg ative Blood specimen (specimen) BLOOD SPECIMEN / Unknown 07/22/2018 16:56 EST 07/22/2018 17:42 EST Isreal Reinoso MD IMMUNOLOGY AND SEROL OGY ORDERABLES Performing Organization Address City/[facility]/ZIP Co de Phone Number [facility] [address] [place] [address] * CREATININE (07/22/2018 16:56 EST) Creatinine 0.61 0.52 - 1.04 mg/dl 07/22/2018 18:15 [facility] GFR, Calculated 101 >60 ml/min/1.7 3m2 07/22/2018 18:15 [facility] Comment: eGFR calculated using CKD-EPI equation for non Americans. Multiply eGFR by 1.16 for Americans. Blood specimen (specimen) BLOOD SPECIMEN / Unknown 07/22/2018 16:56 EST 07/22/2018 17:42 EST Isreal Reinoso MD CHEMISTRY & BLOOD GA S ORDERABLES Performing Organization Address [facility] Co de Phone Number [facility] [address] [place] [address] * COMPLETE BLOOD COUNT AND DIFFERENTIAL (07/22/2018 16:56 EST) WBC 5.95 4.0 - 12.4 K/cmm 07/22/2018 17:53 [facility] RBC 4.99 3.86 - 5.04 M/cmm 07/22/2018 17:53 [facility] Hemoglobin 13.7 11.6 - 15.2 gm/dl 07/22/2018 17:53 [facility] HCT 41.3 34.9 - 44.4 % 07/22/2018 17:53 [facility] MCV 83 81 - 98 fl 07/22/2018 17:53 [facility] MCH 27.5 26.7 - 33.3 pg 07/22/2018 17:53 [facility] MCHC 33.2 32.1 - 35.9 gm/dl 07/22/2018 17:53 [facility] RDW-CV 14.0 <14.7 % 07/22/2018 17:53 [facility] RDW-SD 42.4 <50.4 fl 07/22/2018 17:53 [facility] PLT 313 141 - 377 K/cmm 07/22/2018 17:53 [facility] MPV 10.4 9.5 - 12.7 fl 07/22/2018 17:53 [facility] % Neutrophils 61.1 % 07/22/2018 17:53 [facility] % Lymphocytes 22.7 % 07/22/2018 17:53 [facility] % Monocytes 12.9 % 07/22/2018 17:53 [facility] % Eosinophils 2.4 % 07/22/2018 17:53 [facility] % Basophils 0.7 % 07/22/2018 17:53 [facility] % Immature Grans 0.2 % 07/22/2018 17:53 [facility] ABS Neutrophils 3.64 2.20 - 8.85 K/cmm 07/22/2018 17:53 [facility] ABS Lymphs 1.35 1.09 - 3.30 K/cmm 07/22/2018 17:53 [facility] ABS Monocytes 0.77 0.1 - 0.8 K/cmm 07/22/2018 17:53 [facility] ABS Eosinophils 0.14 0.03 - 0.61 K/cmm 07/22/2018 17:53 [facility] ABS Basophils 0.04 0.01 - 0.11 K/cmm 07/22/2018 17:53 [facility] ABS Immature Grans 0.01 0 - 0.06 K/cmm 07/22/2018 17:53 [facility] Type of Diff: Automated 07/22/2018 17:53 [facility] Blood specimen (specimen) BLOOD SPECIMEN / Unknown 07/22/2018 16:56 EST 07/22/2018 17:42 EST Isreal Reinoso MD PACKAGES & DNA PROBE ORDERABLES [facility] [address] [place] [address] * HLA B27 SCREEN, DNA (07/22/2018 16:56 EST) Pathologist [facility] HLA B27 Result Negative Not Applicable 07/26/2018 8:17 EST [facility] Interpretation (Note) 07/26/2018 8:17 EST [facility] Comment: HLA-B27 antigen was not detected. . ADDITIONAL INFORMATION Method: Flow Cytometry Performing Laboratory CLIA# [id number] Performed or Referred by: [facility], [address] [place] [address] Blood specimen (specimen) BLOOD SPECIMEN / Unknown 07/22/2018 16:56 EST 07/22/2018 17:42 EST Isreal Reinoso MD TISSUE TYPING ORDERA BLES Performing Organization Address [facility] Co de Phone Number [facility] [address] [place] [address] * CCP ANTIBODIES (07/22/2018 16:56 EST) Pathologist [facility] CCP Antibodies <2.5 <5.0 U/mL 07/25/2018 9:34 EST [facility] BLOOD SPECIMEN / Unknown 07/22/2018 16:56 EST 07/22/2018 17:42 EST Isreal Reinoso MD IMMUNOLOGY AND SEROL OGY ORDERABLES Performing Organization Address [facility] Co de Phone Number [facility] [address] [place] [address] * (ABNORMAL) ANGIOTENSIN CONVERTING ENZYME (ANAIS) (07/22/2018 16:56 EST) Pathologist [facility] Angiotensin Converting Enzyme 74(H) 8 - 53 U/L 07/24/2018 6:44 EST [facility] Comment: Performed or Referred by: [facility], [address] [place] [address] Blood specimen (specimen) BLOOD SPECIMEN / Unknown 07/22/2018 16:56 EST 07/22/2018 17:42 EST Isreal Reinoso MD CHEMISTRY & BLOOD GA S ORDERABLES [facility] [address] [place] [address] documented in this encounter Visit Diagnoses Diagnosis Iritis of left eye- Primary documented in this encounter Care Teams Ticket Dispatcher Relationship Specialty Start Date End Date Reggie Peralta MD [address] [phone] PCP - General 01/20/16 01/20/21 documented as of this encounter
--- OUTSIDE RECORDS SUMMARY | 2024-04-26 16:05 | XMS_ITS | Encounter Summary ---
Author Organization [facility] Address [address] [place] [id number] Care Team Providers Care Prop And Effects Designer Name Role Phone Reggie Peralta MD Primary Care Provide r Reason for Referral * (Routine) - Closed Specialty Diagnoses / Procedures Referred By Contneeta lima Referred To Contact Diagnoses Retinal edema Procedures OCT (OPHTHALMIC DIGITAL IMAGING, POSTERIOR SEGMENT) Isreal Reinoso MD [address] [place] [phone] Referral ID Status Reason Start Date Expiration Date Visits Re quested Visits Authorized [id number] Closed 10/13/2018 1 1 Reason for Visit * Reason Comments Eye Problem Iritis left eye Reti nal Edema Encounter Details Date Type Department Care Team ([facility] Contact Info) Description 10/07/2018 12:45 EDT Office Visit [facility] Ophthalmology - [address] [phone] Isreal Reinoso MD [address] [place] [phone] Social History Tobacco Use Types Packs/Day [...] Dispensed Refills Start Date End Da te prednisoLONE (PRED FORTE) 1 % ophthalmic suspensionIndications:Iriti s of left eye Place 1 drop into the left eye 4 times daily. 1 Bottle 2 10/13/2018 documented in this encounter Progress Notes * Regino Rosa - 10/07/2018 1245 EDT Chief Complaint Patient presents with ??? Eye Problem Iritis left eye Retinal Edema HPI Uveitis left eye, vision moderately blurred with floaters left eye, weeks, has improved gradually No eye pain Location: Left eye Pain: 0 - No pain Quality: Blurry Severity: Moderate Duration: Months Timing: Intermittent Lasts: Continuous Context: Pt reports blurry Va still, has not gotten better or worse. Occa pain left eye 2/10 on pain scale from time to time Modifying factors: pt feels wearing her Rx makes her sick to her stomach, same with wearing sunglasses and wants to know why ? Associated Signs & Symptoms: +floaters left eye as before, no flashes of light Visual Fluctuations: Floaters Attestation: Base Eye Exam Visual Acuity (Snellen - Linear) Right Left Dist sc 20/60 -1 20/60 -1 Dist ph sc 20/25 20/30 Tonometry (Applanation, 13:10) Right Left Pressure 12 13 Neuro/Psych Oriented x3: Yes Mood/Affect: Normal Dilation Left eye: no dilation; look 1st per 1.0% Mydriacyl, 2.5% Phenylephrine @ 13:11 Slit Lamp and Fundus Exam Slit Lamp Exam Right Left Lids/Lashes Normal Conjunctiva/Sclera White and quiet Cornea Clear Anterior Chamber no cell physiologic trace cell, no flare Iris Round and reactive Lens Clear Vitreous 1+ trapped Cells; inferior snowballs Fundus Exam Right Left Disc Normal C/D Ratio 0.3 Macula cellophane reflex/CME Periphery inferior snowballs; attached, no snow teixeira Please refer to large retinal drawing. IMAGING: DIAGNOSES: 1. Iritis of left eye 2. Retinal edema 3. Left posterior uveitis IMPRESSION & PLAN: Recurrent Anterior Uveitis left eye Suspected sarcoidosis. High ANAIS (1.5 upper limit of normal) Chest X-ray highly suspicious of sarcoidosis Pending pneumology eval at [facility] Controlled under PF q2h Decrease Pred forte to QID left eye Posterior/intermediate uveitis Not controlled with PF Recommend Ozurdex intravitreal injection left eye Pt agrees, will schedule for next week Uveitic retinal edema left eye Not controlled under PF q2h I have reviewed the past medical, family, social and surgical history. I have reviewed the meds, allergies, and problem list. I performed my own HPI and reviewed the ROS. I personally completed the exam. The patient was instructed to call our office or go to emergency room if worse vision, worse symptoms, or new/other concerns arise. Isreal Reinoso MD I am scribing for Dr. Isreal Reinoso MD while he is personally performing the service. ROSA LACY (Scribe) documented in this encounter Plan of Treatment Upcoming Encounters Date Type Department Care Team (Late st Contact Info) Description 05/18/2024 15:30 EST Office Visit [facility] Pulmonology [address] [facility], [place] [address] Leif Lovelace MD [address] [place] [address], [address] [place] [phone] Scheduled Orders Name Type Priority Associated Diagnoses Orde r Schedule OCT (OPHTHALMIC DIGITAL IMAGING, POSTERIOR SEGMENT) Ophthalmology Routine Retinal edema Ordered: 10/13/2018 documented as of this encounter Visit Diagnoses Diagnosis Iritis of left eye- Primary Retinal edema Left posterior uveitis Chorioretinitis, unspecified documented in this encounter Discontinued Medications Medication Sig Discontinue Reason Start Date End Da te prednisoLONE (PRED FORTE) 1 % ophthalmic suspensionIndications:Iri tis of left eye Place 1 Drop into the left eye every 2 hours while awake. Reorder 07/20/2018 10/07/2018 documented as of this encounter Eye Exam Visual Acuity (Snellen - Linear) Right eye Left eye Dist sc 20/60 -1 20/60 -1 Dist ph sc 20/25 20/30 Tonometry (Applanation, 13:10) Right eye Left eye Pressure 12 13 Neuro/Psych Oriented x3: Yes Mood/Affect: Normal Dilation Left eye: no dilation; look 1st per 1.0% Mydriacyl, 2.5% Phenylephrine @ 13:11 Slit Lamp Exam Right eye Left eye Lids/Lashes Normal Conjunctiva/Sclera White and haresh et Cornea Clear Anterior Chamber no cell physiologic tra ce cell, no flare Iris Round and reacti ve Lens Clear Vitreous 1+ trapped Cells ; inferior snowballs Fundus Exam Right eye Left eye Disc Normal C/D Ratio 0.3 Macula cellophane refle x/CME Periphery inferior snowbal ls; attached, no snow teixeira Care Teams Prop And Effects Designer Relationship Specialty Start Date End Date Reggie Peralta MD [address] [place] [address] [address] [place] [address] PCP - General 01/20/16 01/20/21 documented as of this encounter
--- OUTSIDE RECORDS SUMMARY | 2024-04-26 16:05 | XMS_ITS | Encounter Summary ---
Author Organization [facility] Address [address] [place] [address] Care Team Providers Care Mathematics Instructor Name Role Phone Reggie Peralta MD Primary Care Provide r Reason for Referral * Radiology Services (Routine) - Specialty Report Received Specialty Diagnoses / Procedures Referred By Casimiro t Referred To Contact Diagnoses GERD with esophagitis Bloating Procedures NM GASTRIC EMPTYING SCAN Kristopher Lucia MD [address] [place] [phone] Referral ID Status Reason Start Date Expiration Date V isits Requested Visits Authorized [id number] Specialty Report Received 09/17/2017 1 1 Reason for Visit * Reason Onset Date Comments Other 09/14/2017 Encounter Details Date Type Department Care Team (Late st Contact Info) Description 09/14/2017 Telephone [facility] General Surgery - [address] [address] Kristopher Lucia MD [address] [place] [phone] Other Social History Tobacco Use Types Packs/Day Years Used Date Smoking Tobacco: Never Smokeless Tobacco: Never Sex and Gender Information Value Date Recorded Sex Assigned at Not on file Gender Identity Not on file Sexual Orientation Not on file documented as of this encounter Miscellaneous Notes * Telephone Encounter - Martha Henry RN - 09/17/2017 1200 EST Spoke to patient, per Dr. Lucia's office note of 04/01/16, will order a gastric emptying scan first. Results of this test will determine further testing. Patient is in agreement with this plan. * Telephone Encounter - Iveth Pagan - 09/14/2017 1359 EST Saw 03/27- he recommended having PH Probe & Mano. Now wants to schedule this. documented in this encounter Plan of Treatment Upcoming Encounters Date Type Department Care Team (Late st Contact Info) Description 05/18/2024 15:30 EST Office Visit [facility] [address] [facility], [place], [place] [phone] Leif Lovelace MD [address] [place] [address], [facility] [address] [place] [address] documented as of this encounter Procedures Procedure Name Priority Date/Time Associated Diagnosis Comments NM GASTRIC EMPTYING SCAN Routine 09/27/2017 11:15 EDT GERD with esophagitis Bloating documented in this encounter Results * NM GASTRIC EMPTYING SCAN (09/27/2017 11:15 EDT) Anatomical Region Laterality Modality Other 09/27/2017 11:1 5 EDT 09/27/2017 17:30 EDT Narrative 09/27/2017 17:30 EDT NM GASTRIC EMPTYING SCAN ??09/27/2017 11:15 AM Signs and Symptoms/Comments: ?? K21.8-Pdecxj-omcooplsnc reflux disease with kzugfnaehze-ETQ-49 R14.0-Abdominal distension (gaseous)-ICD-10; GERD with esophagitis and bloating Comparison: Upper GI November 12, 2015 Technique: 0.529 mCi Tc-99m Sulfur Colloid tagged with egg whites with 2 slices of white bread, 30 grams of jam, and 120 ml of water was ingested by the patient. ??One-minute anterior and posterior images were obtained immediately after completion of the meal, at 30 minutes, 60 minutes, 90 minutes, 120 minutes, and 180 minutes (up to 90 % of gastric emptying). ??Percent gastric emptying was calculated using a geometric mean curve fit method. Findings: Time to half emptyin.1 minutes. Retention at ??30 minutes: 54.7 %. ?? Retention at ??60 minutes: 44.3 %. ? Retention at ??90 minutes: 26.0 %. ? Retention at 120 minutes: 11.3 %. Retention at 180 minutes: 4.3 %. Impression: Rapid gastric emptying for solid food at 30 minutes. References: Rosales bailey al. [place] Journal of Gastroenterology 2000. Mark et al. Gastroenterology 2006 Darby et al. [place] Journal of Gastroenterology 2006. I have personally reviewed the images and the above interpretation and agree with the findings. Procedure Note Speedy Castillo MD - 09/27/2017 NM GASTRIC EMPTYING SCAN 09/27/2017 11:15 AM Signs and Symptoms/Comments: K21.3-Zkqhyp-ggapvgloxa reflux disease with wfsimewrvka-QTY-04 R14.0-Abdominal distension (gaseous)-ICD-10; GERD with esophagitis and bloating Comparison: Upper GI November 12, 2015 Technique: 0.529 mCi Tc-99m Sulfur Colloid tagged with egg whites with 2 slices of white bread, 30 grams of jam, and 120 ml of water was ingested by the patient. One-minute anterior and posterior images were obtained immediately after completion of the meal, at 30 minutes, 60 minutes, 90 minutes, 120 minutes, and 180 minutes (up to 90 % of gastric emptying). Percent gastric emptying was calculated using a geometric mean curve fit method. Findings: Time to half emptyin.1 minutes. Retention at 30 minutes: 54.7 %. Retention at 60 minutes: 44.3 %. Retention at 90 minutes: 26.0 %. Retention at 120 minutes: 11.3 %. Retention at 180 minutes: 4.3 %. Impression: Rapid gastric emptying for solid food at 30 minutes. References: Tougas et al. [place] Journal of Gastroenterology 2000. Mark et al. Gastroenterology 2006 Darby et al. [place] Journal of Gastroenterology 2006. I have personally reviewed the images and the above interpretation and agree with the findings. Kristopher Lucia MD IMG NM OR DERABLES documented in this encounter Visit Diagnoses Diagnosis GERD with esophagitis- Primary Bloating Flatulence, eructation, and gas pain documented in this encounter Care Teams Mathematics Instructor Relationship Specialty Start Date End Date Reggie Peralta MD [address] [place] [id number] PCP - General 01/20/16 01/20/21 documented as of this encounter
--- OUTSIDE RECORDS SUMMARY | 2024-04-26 16:05 | XMS_ITS | Encounter Summary ---
Author Organization [facility] Address [address] [place] [address] Care Team Providers Care Last Repairer Helper Name Role Phone Reggie Peralta MD Primary Care Provide r Encounter Details Date Type Department Care Team (Late st Contact Info) Description 09/27/2017 7:15 EDT - 09/27/2017 23:59 EDT Hospital Encounter [address] [phone] Kristopher Lucia MD [address] [place] [address], [address] [place] [phone] Discharge Disposition: Auto Discharge Social History Tobacco Use Types Packs/Day Years Used Date Smoking Tobacco: Never Smokeless Tobacco: Never Sex and Gender Information Value Date Recorded Sex Assigned at Not on file Gender Identity Not on file Sexual Orientation Not on file documented as of this encounter Discharge Diagnoses Diagnosis K21.0 Gastro-esophageal reflux disease with esophagitis-K21.0[ICD-10-CM] R14.0 Abdominal distension (gaseous)-R14.0[ICD-10-CM] documented in this encounter Medications at Time [...] Discharge Disposition Disposition Code Departure Means Destination Auto Discharge Home documented in this encounter Plan of Treatment Upcoming Encounters Date Type Department Care Team (Late st Contact Info) Description 05/18/2024 15:30 EST Office Visit [facility] Pulmonology [address] [facility], [place] [address] Leif Lovelace MD [address] [facility], [facility] [address] [place] [phone] documented as of this encounter Visit Diagnoses Not on filedocumented in this encounter Care Teams Last Repairer Helper Relationship Specialty Start Date End Date Reggie Peralta MD [address] [facility] [address] [place] [address] PCP - General 01/20/16 01/20/21 documented as of this encounter
--- OUTSIDE RECORDS SUMMARY | 2024-04-26 16:05 | XMS_ITS | Encounter Summary ---
Author Organization [facility] Address [address] [place] [address] Care Team Providers Care Remote Coders Name Role Phone Diane Law NP Primary Care Provider [phone] Leif Lovelace MD Unavailable [phone] Reason for Referral * Radiology Services (Routine/Next Available) - Authorized Specialty Diagnoses / Procedures Referred By Casimiro lima Referred To Contact Diagnoses Sarcoidosis Ground glass opacity present on imaging of lung Procedures CT CHEST WO Leif Gomes MD [address] [address] [facility] [place] Referral ID Status Reason Start Date Expiration Date V isits Requested Visits Authorized [id number] Authorized 08/30/2023 10/28/2023 1 1 Reason for Visit * Radiology Services (Routine/Next Available) - Authorized Specialty Diagnoses / Procedures Referred By Casimiro lima Referred To Contact Diagnoses Sarcoidosis Ground glass opacity present on imaging of lung Procedures CT CHEST WO Leif Gomes MD [address] [address] [facility] [place] Referral ID Status Reason Start Date Expiration Date V isits Requested Visits Authorized [id number] Authorized 08/30/2023 10/28/2023 1 1 Encounter Details Date Type Department Care Team (Latest Contact Info) Description 09/13/2023 10:22 EST - 09/13/2023 14:06 EST Hospital Encounter [facility] CT Scan [address] [place] [address] Sarcoidosis; Ground glass opacity present on imaging of lung Discharge Disposition: Home or Self Care Social [...] as needed. cyclopentolate (CYCLOGYL) 2 % ophthalmic solutionIndications:Iri tis of left eye Place 1 Drop [...] daily. prednisoLONE (PRED FORTE) 1 % ophthalmic suspensionIndications:I ritis of left eye Place 1 drop into the left eye 4 times daily. 1 Bottle 2 10/13/2018 sucralfate (CARAFATE) 1 gram tablet Take 1 Tablet by mouth 4 times daily. VICTOZA 3-ARNOLDO 0.6 mg/0.1 mL (18 mg/3 mL) injectable pen ADMINISTER 1.8 MG UNDER THE SKIN EVERY DAY 05/26/2023 documented as of this encounter Discharge Disposition Disposition Code Departure Means Destination Home or Self Care documented in this encounter Plan of Treatment Upcoming Encounters Date Type Department Care Team (Late st Contact Info) Description 05/18/2024 15:30 EST Office Visit [facility] Pulmonology [address] [facility], [place] [address] Leif Lovelace MD [address] [place] [address], [facility] [address] [place] [address] documented as of this encounter Procedures Procedure Name Priority Date/Time Associated Diagnosis Comments CT CHEST WO CONTRAST Routine 09/13/2023 10:34 EST Sarcoidosis Ground glass opacity present on imaging of lung documented in this encounter Results * CT CHEST WO CONTRAST (09/13/2023 10:34 EST) Anatomical Region Laterality Modality Chest Computed Tomogra phy 09/13/2023 10:2 1 EST Impressions 09/15/2023 16:05 EST Sarcoidosis as described above. Please see discussion above. THIS DOCUMENT HAS BEEN ELECTRONICALLY SIGNED BY NESTOR ST MD FOR ANY QUESTIONS OR CONCERNS REGARDING THIS REPORT PLEASE CALL [facility] AT [phone] Narrative 09/15/2023 16:05 EST PROCEDURE INFORMATION: Exam: CT Chest Without Contrast; Diagnostic Exam date and time: 09/13/2023 10:21 AM Age: 63 years old Clinical indication: Sarcoidosis, unspecified; Other nonspecific abnormal finding of lung field; Prior oncological treatment - unknown. ; Additional info: Diffuse ground glass opacity, history of pulmonary sarcoidosis biopsy at [facility] in 2017, CT chest at [facility] in June 2023, interval imaging TECHNIQUE: Imaging [...] opacity, history of pulmonary sarcoidosis biopsy at [facility] in 2018, CT chest at [facility] in June 2023, interval imaging TECHNIQUE: Imaging [...] CONCERNS REGARDING THIS REPORT PLEASE CALL [facility] [phone] Leif Lovelace MD IMG CT ORDERABLES documented in this encounter Visit Diagnoses Diagnosis Sarcoidosis Ground glass opacity present on imaging of lung documented in this encounter Care Teams Remote Coders Relationship Specialty Start Date End Date Diane Law NP [address] [place] [address] PCP - General 01/21/21 Leif Lovelace MD [address] [place] [address], [address] [place] [address] Consulting Clinician Pulmonary Disease 08/24/23 documented as of this encounter
--- OUTSIDE RECORDS SUMMARY | 2024-04-26 16:05 | XMS_ITS | Encounter Summary ---
Author Organization [facility] Address [address] [place] [address] Care Team Providers Care Family Lawyer Name Role Phone Reggie Peralta MD Primary Care Provide r Reason for Visit * Reason Onset Date Comments Results 03/28/2018 Encounter Details Date Type Department Care Team ([facility] st Contact Info) Description 03/28/2018 Telephone [facility] General Surgery - [address] [phone] Kristopher Lucia MD [address] [facility], [address] [place] [address] Results Social History Tobacco Use Types Packs/Day Years Used Date Smoking Tobacco: Never Smokeless Tobacco: Never Sex and Gender Information Value Date Recorded Sex Assigned at Not on file Gender Identity Not on file Sexual Orientation Not on file documented as of this encounter Miscellaneous Notes * Telephone Encounter - Adalgisa Colmenares RN - 03/28/2018 9550 EDT Amy is calling with symptoms of bloody diarrhea. Per her report, she was told by her PCP to review with Dr. Lucia and discuss what he thought would be best to evaluate this. Explained to Julia Lucia was an upper GI surgeon and does not work up for rectal bleeding. Referred back to her PCP for management. * Telephone Encounter - Ledy Perez - 03/28/2018 1552 EDT Patient is calling for the results of Gastric Emptying Study done on 09/27/17. documented in this encounter Plan of Treatment Upcoming Encounters Date Type Department Care Team (Late st Contact Info) Description 05/18/2024 15:30 EST Office Visit [facility] Pulmonology [address] [facility], [place] [address] Leif Lovelace MD [address] [facility], [address] [place] [phone] documented as of this encounter Visit Diagnoses Not on filedocumented in this encounter Care Teams Family Lawyer Relationship Specialty Start Date End Date Reggie Peralta MD [address] [place] [address] [address] [place] [address] PCP - General 01/20/16 01/20/21 documented as of this encounter
--- OUTSIDE RECORDS SUMMARY | 2024-04-26 16:05 | XMS_ITS | Encounter Summary ---
Author Organization [facility] Address [address] [place] [address] Care Team Providers Care Home Supervisor Name Role Phone Diane Law NURSE TECH Primary Care Provider [phone] Reason for Referral * (Routine/Next Available) - Receiving Office to Obtain Authorization Specialty Diagnoses / Procedures Referred By Contac t Referred To Contact Procedures XR OUTSIDE IMAGES CHEST Imaging, External Referral ID Status Reason Start Date Expiration Date Visits Requested Visits Authorized [id number] Receiving Office to Obtain Authorization 07/29/2023 1 1 Reason for Visit * (Routine/Next Available) - Receiving Office to Obtain Authorization Specialty Diagnoses / Procedures Referred By Contac t Referred To Contact Procedures XR OUTSIDE IMAGES CHEST Imaging, External Referral ID Status Reason Start Date Expiration Date Visits Requested Visits Authorized [id number] Receiving Office to Obtain Authorization 07/29/2023 1 1 Encounter Details Date Type Department Care Team (Latest Contact Info) Description 07/06/2023 Hospital Encounter [facility] Secondary Reads [place] Discharge Disposition: [...] Info) Description 05/18/2024 15:30 EST Office Visit [facility] Pulmonology [address] [facility], [place] [address] Leif Lovelace MD [address] [place] [address], [address] [place] [address] documented as of this encounter Procedures Procedure Name Priority Date/Time Associated Diagnosis Comments XR OUTSIDE IMAGES CHEST Routine 07/06/2023 13:32 EST documented in this encounter Results * XR OUTSIDE IMAGES CHEST (07/06/2023 13:32 EST) Narrative 07/29/2023 13:32 EST This is a non-reportable exam. External Imaging IMG OTHER IMAGING OR DERABLES documented in this encounter Visit Diagnoses Not on filedocumented in this encounter Care Teams Home Supervisor Relationship Specialty Start Date End Date Diane Law NP [address] [place] [address] PCP - General 01/21/21 documented as of this encounter
--- OUTSIDE RECORDS SUMMARY | 2024-04-26 16:05 | XMS_ITS | Encounter Summary ---
Author Organization [facility] Address [address] [place] [address] Care Team Providers Care Die Maker Name Role Phone Reggie Peralta MD Primary Care Provide r Reason for Visit * Reason Comments Eye Problem Uveitis left eye Encounter Details Date Type Department Care Team (Late st Contact Info) Description 10/13/2018 12:30 EDT Office Visit [facility] Ophthalmology - [address] [phone] Isreal Reinoso MD [address] [facility], [address] [place] [address] Social History Tobacco Use Types [...] No 07/20/2018 documented as of this encounter Progress Notes * Isreal Reinoso MD - 10/13/2018 1230 EDT Chief Complaint Patient presents with ??? Eye Problem Uveitis left eye HPI Location: Left eye Pain: 0 - No pain Quality: Blurry Severity: Moderate Duration: Months Timing: Intermittent Lasts: Continuous Context: Pt notes no Va changes since last appt. blurred Va as before Modifying factors: Associated Signs & Symptoms: +floaters as before and no flashes of light Visual Fluctuations: Floaters Attestation: Base Eye Exam Visual Acuity (Snellen - Linear) Right Left Dist sc 20/50 20/60 -2 Tonometry (Applanation, 12:27) Right Left Pressure 12 12 Neuro/Psych Oriented x3: Yes Mood/Affect: Normal Dilation Left eye: 1.0% Mydriacyl, 2.5% Phenylephrine @ 12:27 Slit Lamp and Fundus Exam Slit Lamp Exam Right Left Lids/Lashes Normal Normal Conjunctiva/Sclera White and quiet White and quiet Cornea Clear Clear Anterior Chamber Deep and quiet, no cell physiologic trace cell, no flare Iris Round and reactive Round and reactive Lens Clear Vitreous 1+ trapped Cells; inferior snowballs Fundus Exam Right Left Disc Normal C/D Ratio 0.3 Macula cellophane reflex/CME Periphery inferior snowballs; attached, no snow teixeira Please refer to large retinal drawing. IMAGING: DIAGNOSES: 1. Retinal edema 2. Anterior uveitis 3. 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 High ANAIS (1.5 upper limit of normal) Chest X-ray??highly suspicious of sarcoidosis Pending 10/27/2018 pneumology eval at [facility] Controlled??under PF tid Decrease to BiD for 1 week then Once a day for one week then stop. Posterior/intermediate uveitis Not controlled with PF Recommend Ozurdex intravitreal injection left eye Pt agrees, will schedule for next week ?? Uveitic retinal edema left eye Not controlled under PF tid F/U in 4-5 weeks. UNDILATED first for RR to check. OCT. Return if symptoms worsen or fail to improve, for F/U in 4-5 weeks. UNDILATED first for RR to check. OCT.. Procedure Note: INTRAVITREAL Injection: Pre-op Diagnosis: RE/Ant Uveitis Procedure: Intravitreal OZURDEX injection. Side: Left eye(s) Eye Prep: Betadine 5% ophthalmic solution to left eye(s). Anesthesia: Subconjunctival block w/ lidocaine 2% Drug used: OZURDEX Dosage: LOT: 0.7 mg E [id number] Exp: 05/2021 [facility] Number [id number] Paracentesis: No Small Business Consultant: ML Any excess Avastin was appropriately disposed of. Complications: None Post-op Instructions: No drops unless otherwise instructed Call immediately with pain, purulent discharge or loss of vision [phone] Avastin may cause harm based on the drug's mechanism of action and findings from animal studies. Furthermore, animal models link angiogenesis and VEGF and VEGF Receptor 2 (VEGFR2) to critical aspects of female reproduction, embryo- development, and development. I have reviewed the past medical, family, [...] while he is personally performing the service. Isreal Reinoso MD (Scribe) documented in this encounter Plan of Treatment Upcoming Encounters Date Type Department Care Team (Late st Contact Info) Description 05/18/2024 15:30 EST Office Visit [facility] Pulmonology [address] [facility], [place] [address] Leif Lovelace MD [address] [place] [address], [address] [place] [address] documented as of this encounter Visit Diagnoses Diagnosis Retinal edema- Primary Anterior uveitis Unspecified iridocyclitis Posterior uveitis, left Chorioretinitis, unspecified documented in this encounter Eye Exam Visual Acuity (Snellen - Linear) Right eye Left eye Dist sc 20/50 20/60 -2 Tonometry (Applanation, 12:27) Right eye Left eye Pressure 12 12 Neuro/Psych Oriented x3: Yes Mood/Affect: Normal Dilation Left eye: 1.0% Mydriacyl, 2. 5% Phenylephrine @ 12:27 Slit Lamp Exam Right eye Left eye Lids/Lashes Normal Normal Conjunctiva/Sclera White and quiet White and haresh et Cornea Clear Clear Anterior Chamber Deep and quiet, no cell physiol ogic trace cell, no flare Iris Round and reactive Round and john ctive Lens Clear Vitreous 1+ trapped Cells ; inferior snowballs Fundus Exam Right eye Left eye Disc Normal C/D Ratio 0.3 Macula cellophane refle x/CME Periphery inferior snowbal ls; attached, no snow teixeira Care Teams Die Maker Relationship Specialty Start Date End Date Reggie Peralta MD [address] [facility] [address] [place] [address] PCP - General 01/20/16 01/20/21 documented as of this encounter
--- OUTSIDE RECORDS SUMMARY | 2024-04-26 16:05 | XMS_ITS | Encounter Summary ---
Author Organization [facility] Address [address] [place] [address] Care Team Providers Care Cougar Hunter Name Role Phone Reggie Peralta MD Primary Care Provide r Reason for Referral * Radiology Services (Routine) - Closed Specialty Diagnoses / Procedures Referred By Contac t Referred To Contact Diagnoses Iritis of left eye Procedures BILATERAL RIBS PLUS PA CHEST 4+ VIEWS Airam Hughes MD [address] [facility] 5 [place] [address] Referral ID Status Reason Start Date Expiration Date Visits Re quested Visits Authorized [id number] Closed 07/22/2018 1 1 * (Routine) - Closed Specialty Diagnoses / Procedures Referred By Contac t Referred To Contact Diagnoses Retinal edema Procedures OCT (OPHTHALMIC DIGITAL IMAGING, POSTERIOR SEGMENT) Airam Hughes MD [address] [facility] 5 [place] [address] Referral ID Status Reason Start Date Expiration Date Visits Re quested Visits Authorized [id number] Closed 07/22/2018 1 1 Reason for Visit * Reason Comments Eye Problem Iritis eval from Dr ZUNIGA, Pt states less swelling, still burning sensation and light sensitive, discomfort/pain 4-5/10, no flashes , + floaters Encounter Details Date Type Department Care Team (Late st Contact Info) Description 07/22/2018 14:30 EST Office Visit [facility] Ophthalmology - [address] [place] [address] [place] [address] Airam Hughes MD 111 [facility], [address] [place] [id number] Discharge Disposition: Auto Discharge Social History Tobacco [...] No 07/20/2018 documented as of this encounter Discharge Diagnoses Diagnosis H20.9 Unspecified iridocyclitis-H20.9[ICD-10-CM] H35.81 Retinal edema-H35.81[ICD-10-CM] documented in this encounter Discharge Disposition Disposition Code Departure Means Destination Auto Discharge documented in this encounter Progress Notes * Airam Hughes MD - 07/22/2018 1430 EST Chief Complaint Patient presents with ??? Eye Problem Iritis eval from Dr ZUNIGA, Pt states less swelling, still burning sensation and light sensitive, discomfort/pain 4-5/10, no flashes , + floaters HPI Location: Left eye Pain: 4.0 Quality: Aching, Sharp Severity: Moderate Duration: Days Timing: Constant Lasts: Continuous Context: Iritis eval from Dr ZUNIGA, Pt states less swelling, still burning sensation and light sensitive, discomfort/pain 4-5/10, no flashes , + floaters Modifying factors: Associated Signs & Symptoms: using Pred forte q2 hours w/a and Cyclogyl bid left eye Visual Fluctuations: Attestation: Base Eye Exam Visual Acuity (Snellen - Linear) Right Left Dist cc 20/20 -2 20/60 Dist ph cc NI Tonometry (Applanation, 15:05) Right Left Pressure 18 18 Pupils Dark Light React APD Right 4 3 4 None Left dilated Visual Guerra Right Left Full Full Extraocular Movement Right Left Full Full Neuro/Psych Oriented x3: Yes Mood/Affect: Normal Slit Lamp and Fundus Exam Slit Lamp Exam Right Left Lids/Lashes reactive ptosis Conjunctiva/Sclera White and quiet Cornea Clear Anterior Chamber Deep and quiet wide and quiet Iris Dilated Lens Clear Vitreous 1+ Cells, 1+ flare, trapped cell no haze Fundus Exam Right Left Disc Normal no edema C/D Ratio 0.2 0.2 Macula fovea reflex ?CME Vessels No Sheathing Periphery no snoballs or snowbanks, no heme Please refer to large retinal drawing. IMAGING: OCT REPORT Indications: Uveitis/Retinal Edema Findings: Right Eye Left Eye Normal Retinal Edema Original test to be found in patients shadow chart DIAGNOSES: 1. Iritis of left eye SYPHILIS SEROLOGY QUANTIFERON TB GOLD PLUS LYME AB CREATININE COMPLETE BLOOD COUNT AND DIFFERENTIAL HLA B27 SCREEN, DNA CCP ANTIBODIES ANGIOTENSIN CONVERTING ENZYME (ANAIS) BILATERAL RIBS PLUS PA CHEST 4+ VIEWS 2. Retinal edema OCT (OPHTHALMIC DIGITAL IMAGING, POSTERIOR SEGMENT) IMPRESSION & PLAN: Recurrent Anterior Uveitis left eye History of chronic diarrhea. Negative endoscopy. No arthralgias, infectious contacts, weight loss, night sweats, erythema, mucosal ulcers. Last albuterol use was years ago. Improving under PF q2h [place] [place]. 2nd episode now Uveitic retinal edema left eye Continue PF - every 2 hours while awake Continue Cylogyl - 1 drop into left eye at night time Order Syphilis, TB and Lyme serologies Order CBC, Creatinine, HLA-B27, ANAIS, CCP, Chest X-ray. Return in about 1 week (around 07/29/2018), or if symptoms worsen or fail to improve, for OCT. have reviewed the past medical, family, social and surgical history. I have reviewed the meds, allergies, and problem list. I performed my own HPI and reviewed the ROS. I personally completed the exam. The patient was instructed to call our office or go to emergency room if worse vision, worse symptoms, or new/other concerns arise. MD Nevaeh Hernnadez am scribing for Dr. Airam Hughes MD while he is personally performing the service. (Scribe) documented in this encounter Miscellaneous Notes * Addendum Note - Airam Hughes MD - 07/22/2018 1430 ESTAddended by: AIRAM HUGHES on: 07/26/2018 18:01 Modules accepted: Orders documented in this encounter Plan of Treatment Upcoming Encounters Date Type Department Care Team (Late st Contact Info) Description 05/18/2024 15:30 EST Office Visit [facility] Pulmonology [address] [facility], [place] [address] Leif Lovelace MD [address] [place] [address], [facility] 5 [place] [phone] Scheduled Orders Name Type Priority Associated Diagnoses Orde r Schedule OCT (OPHTHALMIC DIGITAL IMAGING, POSTERIOR SEGMENT) Ophthalmology Routine Retinal edema Ordered: 07/22/2018 BILATERAL RIBS PLUS PA CHEST 4+ VIEWS Imaging Routine Iritis of left eye Ordered: 07/22/2018 documented as of this encounter Results * QUANTIFERON TB GOLD PLUS (07/27/2018 11:31 EST) [facility] TB Interpretation Negative Negative 019 11:46 EST [facility] Comment: Reference Range: Negative No interferon-gamma response to M. tuberculosis antigens was detected. Infection with M. tuberculosis is unlikely. A single negative result does not exclude infection with M. tuberculosis. In patients at high risk for M. tuberculosis infection, a second test should be considered in accordance with the 2017 ATS/IDSA/CDC Clinical Practive Guidelines for Diagnosis of Tuberculosis in Adults and Children [Lewinsohn DM et. al. Clin. Infect. Dis. 2017:64(2):111-115]. Results were obtained with the Qiagen QuantiFERON-TB Gold Plus MEDARDO. TB1 Ag minus Nil 0.00 IU/mL 07/29/19 19 11:46 EST [facility] TB2 Ag minus Nil 0.01 IU/mL 07/29/19 19 11:46 EST [facility] Blood specimen (specimen) BLOOD SPECIMEN / Unknown 07/27/2018 11:31 EST 07/27/2018 11:58 EST Airam Hughes MD CHEMISTRY & BLOOD GA S ORDERABLES Performing Organization Address [facility] Co de Phone Number [facility] [address] [place] [address] * (ABNORMAL) ANGIOTENSIN CONVERTING ENZYME (ANAIS) (07/22/2018 16:56 EST) Pathologist [facility] Angiotensin Converting Enzyme 74(H) 8 - 53 U/L 07/24/2018 6:44 EST [facility] Comment: Performed or Referred by: [facility], [address] [place] [id number] Blood specimen (specimen) BLOOD SPECIMEN / Unknown 07/22/2018 16:56 EST 07/22/2018 17:42 EST Airam Hughes MD CHEMISTRY & BLOOD GA S ORDERABLES Performing Organization Address [facility]/ZIP Co de Phone Number [facility] [address] [place] [address] * CCP ANTIBODIES (07/22/2018 16:56 EST) [facility] CCP Antibodies <2.5 <5.0 U/mL 07/25/2018 9:34 EST [facility] BLOOD SPECIMEN / Unknown 07/22/2018 16:56 EST 07/22/2018 17:42 EST Airam Hughes MD IMMUNOLOGY AND SEROL OGY ORDERABLES Performing Organization Address [facility] Co de Phone Number [facility] [address] [place] [address] * HLA B27 SCREEN, DNA (07/22/2018 16:56 EST) [facility] HLA B27 Result Negative Not Applicable 07/26/2018 8:17 EST [facility] Interpretation (Note) 07/26/2018 8:17 EST [facility] Comment: HLA-B27 antigen was not detected. . ADDITIONAL INFORMATION Method: Flow Cytometry Performing Laboratory CLIA# [id number] Performed or Referred by: [facility], [address] [place] [address] Blood specimen (specimen) BLOOD SPECIMEN / Unknown 07/22/2018 16:56 EST 07/22/2018 17:42 EST Airam Hughes MD TISSUE TYPING ORDERA BLES [facility] [address] [place] [address] * COMPLETE BLOOD COUNT AND DIFFERENTIAL (07/22/2018 16:56 EST) WBC 5.95 4.0 - 12.4 K/cmm 07/22/2018 17:53 [facility] RBC 4.99 3.86 - 5.04 M/cmm 07/22/2018 17:53 [facility] Hemoglobin 13.7 11.6 - 15.2 gm/dl 07/22/2018 17:53 [facility] HCT 41.3 34.9 - 44.4 % 07/22/2018 17:53 [facility] MCV 83 81 - 98 fl 07/22/2018 17:53 [facility] MCH 27.5 26.7 - 33.3 pg 07/22/2018 17:53 [facility] MCHC 33.2 32.1 - 35.9 gm/dl 07/22/2018 17:53 [facility] RDW-CV 14.0 <14.7 % 07/22/2018 17:53 [facility] RDW-SD 42.4 <50.4 fl 07/22/2018 17:53 [facility] PLT 313 141 - 377 K/cmm 07/22/2018 17:53 [facility] MPV 10.4 9.5 - 12.7 fl 07/22/2018 17:53 [facility] % Neutrophils 61.1 % 07/22/2018 17:53 [facility] % Lymphocytes 22.7 % 07/22/2018 17:53 [facility] % Monocytes 12.9 % 07/22/2018 17:53 [facility] % Eosinophils 2.4 % 07/22/2018 17:53 [facility] % Basophils 0.7 % 07/22/2018 17:53 [facility] % Immature Grans 0.2 % 07/22/2018 17:53 [facility] ABS Neutrophils 3.64 2.20 - 8.85 K/cmm 07/22/2018 17:53 [facility] ABS Lymphs 1.35 1.09 - 3.30 K/cmm 07/22/2018 17:53 [facility] ABS Monocytes 0.77 0.1 - 0.8 K/cmm 07/22/2018 17:53 [facility] ABS Eosinophils 0.14 0.03 - 0.61 K/cmm 07/22/2018 17:53 [facility] ABS Basophils 0.04 0.01 - 0.11 K/cmm 07/22/2018 17:53 [facility] ABS Immature Grans 0.01 0 - 0.06 K/cmm 07/22/2018 17:53 [facility] Type of Diff: Automated 07/22/2018 17:53 [facility] Blood specimen (specimen) BLOOD SPECIMEN / Unknown 07/22/2018 16:56 EST 07/22/2018 17:42 EST Airam Hughes MD PACKAGES & DNA PROBE ORDERABLES [facility] [address] [place] [address] * CREATININE (07/22/2018 16:56 EST) Creatinine 0.61 0.52 - 1.04 mg/dl 07/22/2018 18:15 [facility] GFR, Calculated 101 >60 ml/min/1.7 3m2 07/22/2018 18:15 [facility] Comment: eGFR calculated using CKD-EPI equation for non Americans. Multiply eGFR by 1.16 for Americans. Blood specimen (specimen) BLOOD SPECIMEN / Unknown 07/22/2018 16:56 EST 07/22/2018 17:42 EST Airam Hughes MD CHEMISTRY & BLOOD GA S ORDERABLES Performing Organization Address [facility] Co de Phone Number [facility] [address] [place] [address] * LYME AB (07/22/2018 16:56 EST) Lyme AB Negative 07/25/2018 14:14 EST [facility] Comment:Reference Range: Neg ative Blood specimen (specimen) BLOOD SPECIMEN / Unknown 07/22/2018 16:56 EST 07/22/2018 17:42 EST Airam Hughes MD IMMUNOLOGY AND SEROL OGY ORDERABLES Performing Organization Address [facility] Co de Phone Number [facility] [address] [place] [address] * SYPHILIS SEROLOGY (07/22/2018 16:56 EST) Syphilis Serology Negative 07/25/2018 14:22 EST [facility] Comment:Reference Range: Neg ative Blood specimen (specimen) BLOOD SPECIMEN / Unknown 07/22/2018 16:56 EST 07/22/2018 17:42 EST Airam Hughes MD IMMUNOLOGY AND SEROL OGY ORDERABLES Performing Organization Address [facility] Co de Phone Number [facility] [address] [place] [address] documented in this encounter Visit Diagnoses Diagnosis Iritis of left eye- Primary Retinal edema documented in this encounter Eye Exam Visual Acuity (Snellen - Linear) Right eye Left eye Dist cc 20/20 -2 20/60 Dist ph cc NI Tonometry (Applanation, 15:05) Right eye Left eye Pressure 18 18 Pupils Dark Light React APD Right eye 4 3 4 None Left eye dilated Visual Guerra Right eye Left eye Full Full Extraocular Movement Right eye Left eye Full Full Neuro/Psych Oriented x3: Yes Mood/Affect: Normal Slit Lamp Exam Right eye Left eye Lids/Lashes reactive ptosis Conjunctiva/Sclera White and haresh et Cornea Clear Anterior Chamber Deep and quiet wide and quiet Iris Dilated Lens Clear Vitreous 1+ Cells, 1+ fla re, trapped cell no haze Fundus Exam Right eye Left eye Disc Normal no edema C/D Ratio 0.2 0.2 Macula fovea reflex ?CME Vessels No Sheathing Periphery no snoballs or s nowbanks, no heme Care Teams Cougar Hunter Relationship Specialty Start Date End Date Reggie Peralta MD [address] [address] PCP - General 01/20/16 01/20/21 documented as of this encounter
--- OUTSIDE RECORDS SUMMARY | 2024-04-26 16:05 | XMS_ITS | Encounter Summary ---
Author Organization [facility] Address [address] [place] [address] Care Team Providers Care Technology Support Analyst Name Role Phone Reggie Peralta MD Primary Care Provide r Reason for Referral * (Routine) - Closed Specialty Diagnoses / Procedures Referred By Casimiro lima Referred To Contact Diagnoses Iritis of left eye Procedures FLUORESCEIN ANGIOGRAPHY Ronal Covington MD [address] [place] [address] [address] [place] [address] Referral ID Status Reason Start Date Expiration Date Visits Re quested Visits Authorized [id number] Closed 08/11/2018 1 1 * (Routine) - Closed Specialty Diagnoses / Procedures Referred By Casimiro lima Referred To Contact Diagnoses Retinal edema Procedures EYE PHOTOGRAPHY (FUNDUS) Ronal Covington MD [address] [place] [address] [address] [place] [address] Referral ID Status Reason Start Date Expiration Date Visits Re quested Visits Authorized [id number] Closed 08/11/2018 1 1 Reason for Visit * Reason Comments Eye Problem Anterior uveitis lef t eye, uveitic retinal edema left eye. Encounter Details Date Type Department Care Team ([facility] st Contact Info) Description 08/11/2018 13:00 EST Office Visit [facility] [place] [address] Ronal Covington MD [address] [place] [address], [address] [place] [address] Social History Tobacco Use Types [...] as of this encounter Progress Notes * Ronal Covington MD - 08/11/2018 1300 EST Chief Complaint Patient presents with ??? Eye Problem Anterior uveitis left eye, uveitic retinal edema left eye. HPI Location: Left eye Pain: 0 - No pain Quality: Blurry Severity: Moderate Duration: Weeks Timing: Constant Lasts: Continuous Context: Anterior uveitis left eye, uveitic retinal edema left eye. Modifying factors: Vision is about the same, feels like it may be getting better. Notices that her vision is worse later in the day. Associated Signs & Symptoms: Occasional floaters, no flashes, no eye pain. Still using PF every2 hours Visual Fluctuations: Floaters Attestation: Patient states that her vision is about the same, does have occasional flashes and floaters, no eye pain. Base Eye Exam Visual Acuity (Snellen - Linear) Right Left Dist sc 20/60 20/200 +1 Dist ph sc 20/40 -2 20/70 +1 Correction: Glasses Tonometry (Applanation, 12:57) Right Left Pressure 14 14 Pupils Pupils Right PERRL Left PERRL Visual Guerra Right Left Full Full Extraocular Movement Right Left Full, Ortho Full, Ortho Neuro/Psych Oriented x3: Yes Mood/Affect: Normal Dilation Both eyes: 2.5% Phenylephrine, 1.0% Mydriacyl @ 12:58 Slit Lamp and Fundus Exam Slit Lamp Exam Right Left Lids/Lashes Normal Normal Conjunctiva/Sclera White and quiet White and quiet Cornea Clear Clear Anterior Chamber Deep and quiet Deep and quiet Iris Round and reactive Round and reactive Lens 1+ Nuclear sclerosis Clear Vitreous Posterior vitreous detachment, vit veils +1 cells Fundus Exam Right Left Disc Normal C/D Ratio 0.2 0.2 Macula Normal edema Vessels Normal Normal Periphery Normal Normal All five layers of the cornea are normal unless otherwise specified. Please refer to large retinal drawing. IMAGING: IVFA done today, refer to chart for images IMPRESSION: 1. Iritis of left eye FLUORESCEIN ANGIOGRAPHY 2. Retinal edema EYE PHOTOGRAPHY (FUNDUS) PLAN: Uveitis left eye On PF Q2h currently PAtient with RE Chest x-ray order by RR recently Positive chest x-ray for hilar adenopathy Has had positive adenopathy on chest x-ray 2014 ?Sarcoidosis Dx Followed by Diane Montemayor in [facility] Attempted to contact her but she was not available until next Wednesday Will discuss with Dr. Reinoso Follow Retinal Edema left eye On FA positive leakage Can consider intravitreal injections if needed Improving with PF every 2 hours Continue with PF every 2 hours in her left eye Follow PVD right eye No holes, no tear RD precaution Return in about 2 weeks (around 08/25/2018), or if symptoms worsen or fail to improve, for With Dr. Reinoso, OCT, Undilated first?. I, Dr. Ronal Covington, have performed my own HPI and reviewed the tech's ROS. I have also reviewed thepatient's past medical, family, social and surgical history, as well as the patient's medications, allergies, and problem list. I am scribing for Dr. Ronal Covington MD while he is personally performing the service. MAY Yang (Scribe) documented in this encounter Plan of Treatment Upcoming Encounters Date Type Department Care Team (Late st Contact Info) Description 05/18/2024 15:30 EST Office Visit [facility] Pulmonology [address] [facility], [place] [address] Leif Lovelace MD [address] [facility], [address] [place] [address] Scheduled Orders Name Type Priority Associated Diagnoses Orde r Schedule EYE PHOTOGRAPHY (FUNDUS) Ophthalmology Routine Retinal edema Ordered: 08/11/2018 FLUORESCEIN ANGIOGRAPHY Ophthalmology Routine Iritis of left eye Ordered: 08/11/2018 documented as of this encounter Visit Diagnoses Diagnosis Iritis of left eye- Primary Retinal edema documented in this encounter Eye Exam Visual Acuity (Snellen - Linear) Right eye Left eye Dist sc 20/60 20/200 +1 Dist ph sc 20/40 -2 20/70 +1 Correction: Glasses Tonometry (Applanation, 12:57) Right eye Left eye Pressure 14 14 Pupils Pupils Right eye PERRL Left eye PERRL Visual Guerra Right eye Left eye Full Full Extraocular Movement Right eye Left eye Full, Ortho Full, Ortho Neuro/Psych Oriented x3: Yes Mood/Affect: Normal Dilation Both eyes: 2.5% Phenylephrin e, 1.0% Mydriacyl @ 12:58 Slit Lamp Exam Right eye Left eye Lids/Lashes Normal Normal Conjunctiva/Sclera White and quiet White and haresh et Cornea Clear Clear Anterior Chamber Deep and quiet Deep and quiet Iris Round and reactive Round and john ctive Lens 1+ Nuclear sclerosis Clear Vitreous Posterior vitreous detachment, v it veils +1 cells Fundus Exam Right eye Left eye Disc Normal C/D Ratio 0.2 0.2 Macula Normal edema Vessels Normal Normal Periphery Normal Normal Care Teams Technology Support Analyst Relationship Specialty Start Date End Date Reggie Peralta MD [address] [place] [address] [address] [place] [address] PCP - General 01/20/16 01/20/21 documented as of this encounter
--- OUTSIDE RECORDS SUMMARY | 2024-04-26 16:05 | XMS_ITS | Encounter Summary ---
Author Organization [facility] Address [address] [place] [address] Care Team Providers Care Mold Operator Name Role Phone Reggie Peralta MD Primary Care Provide r Diane Law NP Primary Care Provider [phone] Leif Lovelace MD Unavailable [phone] Encounter Details Date Type Department Care Team (Late Contact Info) Description 06/13/2020 Lab Requisition [facility] Pathology & Laboratory Medicine - [facility] [address] [place] [address] Outr Resulting Lab, Provider Social History Tobacco [...] Info) Description 05/18/2024 15:30 EST Office Visit [facility] Pulmonology [address] [facility], [place] [address] Leif Lovelace MD [address] [facility], [address] 5 [place] [address] documented as of this encounter Procedures Procedure Name Priority Date/Time Associated Diagnosis Comments DO NOT ORDER STANDALONE - [facility]OAD COVID TEST Today 06/12/2020 13:30 EST COVID-19 TESTING Routine 06/12/2020 13:3 0 EST documented in this encounter Results * DO NOT ORDER STANDALONE - BROAD COVID TEST (06/12/2020 13:30 EST) COVID-19 rt-PCR Result NEGATIVE Negative 06/15/2020 16:55 EST [facility] Comment: 2019-novel Coronavirus (2019-nCoV) not detected by the qRT-PCR assay. Consider testing for other respiratory viruses or re-collecting for 2019-nCoV testing. Note: Optimum timing for peak viral levels during infections caused by 2019-nCoV have not been determined. Collection of multiple specimens from the same patient may be necessary to detect the virus. Limitations Positive results are indicative of active infection with SARS-CoV-2 but do not rule out bacterial infection or co-infection with other viruses. The agent detected may not be the definite cause of disease. In addition, detection of viral RNA may not indicate the presence of infectious virus or that SARS-CoV-2 is the causative agent for clinical symptoms. Negative results do not preclude SARS-CoV-2 infection and should not be used as the sole basis for patient management decisions. Negative results must be combined with clinical observations, patient history, and epidemiological information. False negative results may also occur if amplification inhibitors are present in the specimen or if inadequate numbers of organisms are present in the specimen. Optimum specimen types and timing for peak viral levels during infections caused by SARS-CoV-2 have not been fully determined. Collection of multiple specimens (types and time points) from the same patient may be necessary to detect the virus. The test was validated for use with upper respiratory specimens obtained via nasopharyngeal or oropharyngeal swabs in VTM, UTM, M4, M5, M6, saline, and MTM media. The performance of this test has not been established for other specimens. Specimens collected using other FDA recommended Specimen Collection Materials listed in the FDA COVID-19 Diagnostic Technologies communication (October 05, 2019) are processed with the caveat that they were not all validated for use with this test and the result must be interpreted in this context. Furthermore, a false negative results may occur if a specimen is improperly collected, transported or handled. If the virus mutates in the RT-PCR target region, SARS-CoV-2 may not be detected or may be detected less predictably. Inhibitors or other types of interference may produce a false negative result. An interference study evaluating the effect of common cold medications was not performed. This test is not FDA-cleared but its performance characteristics were established by our CLIA-certified, CAP-accredited, high complexity laboratory in accordance with CLIA regulations, College of [employer] (CAP) guidelines (Sep 28, 2019), and FDA guidance (Sep 09, 2019). This test is only for use under the Food and Drug Administration's Emergency Use Authorization. Swab ENTIRE NASOPHARYNX / Unknown 06/12/2020 13:30 EST 06/13/2020 23:00 EST Provider Outr Resulting Lab MICROBIOLOGY - GENERAL ORDERABLES [facility] [place] * COVID-19 TESTING (06/12/2020 13:30 EST) COVID-19 rt-PCR Result NEGATIVE Negative 06/15/2020 16:55 EST [facility] Comment: 2019-novel Coronavirus (2019-nCoV) not detected by the qRT-PCR assay. Consider testing for other respiratory viruses or re-collecting for 2019-nCoV testing. Note: Optimum timing for peak viral levels during infections caused by 2019-nCoV have not been determined. Collection of multiple specimens from the same patient may be necessary to detect the virus. Limitations Positive results are indicative of active infection with SARS-CoV-2 but do not rule out bacterial infection or co-infection with other viruses. The agent detected may not be the definite cause of disease. In addition, detection of viral RNA may not indicate the presence of infectious virus or that SARS-CoV-2 is the causative agent for clinical symptoms. Negative results do not preclude SARS-CoV-2 infection and should not be used as the sole basis for patient management decisions. Negative results must be combined with clinical observations, patient history, and epidemiological information. False negative results may also occur if amplification inhibitors are present in the specimen or if inadequate numbers of organisms are present in the specimen. Optimum specimen types and timing for peak viral levels during infections caused by SARS-CoV-2 have not been fully determined. Collection of multiple specimens (types and time points) from the same patient may be necessary to detect the virus. The test was validated for use with upper respiratory specimens obtained via nasopharyngeal or oropharyngeal swabs in VTM, UTM, M4, M5, M6, saline, and MTM media. The performance of this test has not been established for other specimens. Specimens collected using other FDA recommended Specimen Collection Materials listed in the FDA COVID-19 [employer] communication (October 05, 2019) are processed with the caveat that they were not all validated for use with this test and the result must be interpreted in this context. Furthermore, a false negative results may occur if a specimen is improperly collected, transported or handled. If the virus mutates in the RT-PCR target region, SARS-CoV-2 may not be detected or may be detected less predictably. Inhibitors or other types of interference may produce a false negative result. An interference study evaluating the effect of common cold medications was not performed. This test is not FDA-cleared but its performance characteristics were established by our CLIA-certified, CAP-accredited, high complexity laboratory in accordance with CLIA regulations, College of [employer] (CAP) guidelines (Sep 28, 2019), and FDA guidance (Sep 09, 2019). This test is only for use under the Food and Drug Administration's Emergency Use Authorization. Performing Lab [facility] 06/15/2020 16:55 EST [facility] Swab 06/12/2020 13:3 0 EST 06/13/2020 23:00 EST Provider Outr Resulting Lab MICROBIOLOGY - GENERAL ORDERABLES [facility] [address] [place] [address] [facility] [place], [place] documented in this encounter Visit Diagnoses Not on filedocumented in this encounter Care Teams Mold Operator Relationship Specialty Start Date End Date Reggie Peralta MD 4 [facility] [address] [place] [address] PCP - General 01/20/16 01/20/21 Diane Law NP [address] [place] [id number] PCP - General 01/21/21 Leif Lovelace MD [address] [place] [address], [address] [place] [address] Consulting Clinician Pulmonary Disease 08/24/23 documented as of this encounter
--- OUTSIDE RECORDS SUMMARY | 2024-04-26 16:05 | XMS_ITS | Encounter Summary ---
Author Organization [facility] Address [address] [place] [address] Care Team Providers Care Oracle Adf Consultant Name Role Phone Reggie Peralta MD Primary Care Provide r Encounter Details Date Type Department Care Team (Late Contact Info) Description 07/27/2018 Phlebotomy Only [address] [address] Technical Support Director, Outpatient Iritis of left eye; Retinal edema Social History Tobacco Use Types Packs/Day Years [...] Info) Description 05/18/2024 15:30 EST Office Visit [facility] Pulmonology [address] [facility], [place] [address] Leif Lovelace MD [address] [facility], [address] [place] [address] documented as of this encounter Procedures Procedure Name Priority Date/Time Associated Diagnosis Comments QUANTIFERON TB GOLD PLUS Routine 07/27/2018 11:31 EST Iritis of left eye Retinal edema documented in this encounter Results * QUANTIFERON TB GOLD PLUS (07/27/2018 11:31 EST) TB Interpretation Negative Negative 019 11:46 EST [facility] Comment: Reference Range: Negative No [...] Diagnosis of Tuberculosis in Adults and Children [Angelinsohn DM et. al. Clin. Infect. Dis. 2017:64(2):111-115]. Results were obtained with the [employer] QuantiFERON-TB Gold Plus MEDARDO. TB1 Ag minus Nil 0.00 IU/mL 07/29/19 11:46 EST [facility] TB2 Ag minus Nil 0.01 IU/mL 07/29/19 19 11:46 EST [facility] Blood specimen (specimen) BLOOD SPECIMEN / Unknown 07/27/2018 11:31 EST 07/27/2018 11:58 EST Isreal Reinoso MD CHEMISTRY & BLOOD GA S ORDERABLES [facility] [address] [place] [address] documented in this encounter Visit Diagnoses Diagnosis Iritis of left eye Retinal edema documented in this encounter Care Teams Oracle Adf Consultant Relationship Specialty Start Date End Date Reggie Peralta MD [address] [place] [address] [address] [place] [address] PCP - General 01/20/16 01/20/21 documented as of this encounter
--- OUTSIDE RECORDS SUMMARY | 2024-04-26 16:05 | XMS_ITS | Encounter Summary ---
Author Organization [facility] Address [address] [place] [address] Care Team Providers Care Family Court Registrar Name Role Phone Diane Law NP Primary Care Provider [phone] Leif Lovelace MD Unavailable [phone] Reason for Referral * Test (Routine/Next Available) - Authorization Not Required Specialty Diagnoses / Procedures Referred By Casimiro lima Referred To Contact Diagnoses Sarcoidosis Procedures PULMONARY FUNCTION TESTING Leif Lovelace MD [address] [place] [phone] Referral ID Status Reason Start Date Expiration Date Visits Requested Visits Authorized [id number] Authorization Not Required 08/24/2023 1 1 Reason for Visit * Test (Routine/Next Available) - Authorization Not Required Specialty Diagnoses / Procedures Referred By Casimiro lima Referred To Contact Diagnoses Sarcoidosis Procedures PULMONARY FUNCTION TESTING Leif Lovelace MD [address] [place] [phone] Referral ID Status Reason Start Date Expiration Date Visits Requested Visits Authorized [id number] Authorization Not Required 08/24/2023 1 1 Encounter Details Date Type Department Care Team (Latest Contact Info) Description 09/13/2023 14:07 EST - 09/13/2023 23:59 EST Hospital Encounter [facility] PFT [address] [place] [address] Room 1, [facility] Pft Sarcoidosis Discharge Disposition: Home or Self Care Social [...] or Self Care documented in this encounter Progress Notes * Diana Alba MD - 09/13/2023 1500 EST Name: Amy Alexander Date of : 1960 Date: 09/13/2023 Pulmonary Function Lab 6 Minute Walk for Distance Indication/Diagnosis: Sarcoidosis Pre/Resting BP: 136/72 Pre/Resting HR: 85 Pre/Resting O2 sat: 98% Pre/Resting TI: 0 Oxygen Liter/min: Room air Pulse dose Oxygen: no Max Exercise BP:156/80 Max Exercise HR: 99 Max Exercise O2 sat: 97% Max Exercise TI: 2 Oxygen Liter/min: Room air Pulse dose Oxygen: no Post/Recovery BP: 139/84 Post/Recovery HR: 94 Post/Recovery O2 sat: 98% Post/Recovery TI: 0 Oxygen Liter/min: Room air Pulse dose Oxygen: no Walked with assistance: No Distance walked: 1,490 feet Number of rests stops: 0 Total time restin minutes 0 seconds Patient transported Oxygen device: N/A Provider Interpretation: Normal oxygen saturation at rest and with exercise.Low risk walk distance 1490 feet Authenticating provider: Diana Alba MD Date: 09/14/2023 Time: 16:30 * Sydney Leung RT - 09/13/2023 1500 EST Patient attended PFT and 6MWT appointment. Please see 6MWT results in Notes and PFT report in Procedures after interpretation has been completed for both reports. documented in this encounter Plan of Treatment Upcoming Encounters Date Type Department Care Team (Late st Contact Info) Description 05/18/2024 15:30 EST Office Visit [facility] Pulmonology [address] [facility], [place] [address] Leif Lovelace MD [address] [place] [address], [facility] [address] [place] [phone] documented as of this encounter Procedures Procedure Name Priority Date/Time Associated Diagnosis Comments PULMONARY FUNCTION TESTING LARRY 09/13/2023 14:22 EST Sarcoidosis documented in this encounter Results * PULMONARY FUNCTION TESTING (09/13/2023 14:22 EST) 09/13/2023 14:2 2 EST Leif Lovelace MD PFT ORDERABLES Performing Organization Address City/State/[facility] Co de Phone Number [facility] PULMONARY FUNCTION TESTING documented in this encounter Visit Diagnoses Diagnosis Sarcoidosis documented in this encounter Care Teams Family Court Registrar Relationship Specialty Start Date End Date Diane Law NP [address] [place] [address] PCP - General 01/21/21 Leif Lovelace MD [address] [facility], [address] [place] [phone] Consulting Clinician Pulmonary Disease 08/24/23 documented as of this encounter
--- OUTSIDE RECORDS SUMMARY | 2024-04-26 16:05 | XMS_ITS | Encounter Summary ---
Author Organization [facility] Address [address] [place] [address] Care Team Providers Care Grain Ii Farmworker Name Role Phone Reggie Peralta MD Primary Care Provide r Reason for Visit * Reason Onset Date Comments Results 10/06/2017 Encounter Details Date Type Department Care Team ([facility] st Contact Info) Description 10/06/2017 Telephone [facility] General Surgery - [address] [phone] Kristopher Lucia MD 111 [facility], [address] [place] [address] Results Social History Tobacco Use Types Packs/Day Years Used Date Smoking Tobacco: Never Smokeless Tobacco: Never Sex and Gender Information Value Date Recorded Sex Assigned at Not on file Gender Identity Not on file Sexual Orientation Not on file documented as of this encounter Miscellaneous Notes * Telephone Encounter - Martha Henry RN - 10/06/2017 1204 EDT TC to patient to discuss her gastric emptying scan results. She is currently using Dexilant for hersymptoms and wants to think about surgery and discuss with her . She will call back if she wants to see Dr. Lucia to discuss a redo Summer. * Telephone Encounter - Iveth Pagan - 10/06/2017 1130 EDT Patient said she is returning call regarding radiology results documented in this encounter Plan of Treatment Upcoming Encounters Date Type Department Care Team (Late st Contact Info) Description 05/18/2024 15:30 EST Office Visit [facility] Pulmonology [address] [facility], [place] [address] Leif Lovelace MD [address] [place] [address] [address] [place] [phone] documented as of this encounter Visit Diagnoses Not on filedocumented in this encounter Care Teams Grain Ii Farmworker Relationship Specialty Start Date End Date Reggie Peralta MD [address] [place] [phone] PCP - General 01/20/16 01/20/21 documented as of this encounter
--- OUTSIDE RECORDS SUMMARY | 2024-04-26 16:05 | XMS_ITS | Encounter Summary ---
Author Organization [facility] Address [address] [place] [address] Care Team Providers Care Wool Merchant Name Role Phone Reggie Peralta MD Primary Care Provide r Reason for Visit * Reason Onset Date Comments Labs Only 07/25/2018 Encounter Details Date Type Department Care Team (Late st Contact Info) Description 07/25/2018 Telephone [facility] Ophthalmology - [place] [address] [place] [address] Isreal Reinoso MD [address] [facility], [address] [place] [address] Labs Only Social History Tobacco Use Types Packs/Day Years [...] encounter Miscellaneous Notes * Telephone Encounter - Sydnee Moura RN - 07/26/[address] Reinoso who said that he wants Quantiferon test done and will re order so that after patient's appointment tomorrow she can go directly to the lab. Called patient to update. * Telephone Encounter - Sydnee Moura RN - 07/25/2018 1421 EST Called lab who said that they did not get enough blood for the Quantiferon test at the time patientcame in. If Dr. Reinoso feels this test is absolutely necessary then he needs to re-order and patient needs to be called to have her go back to the lab. * Telephone Encounter - Taylor Frey - 07/25/2018 1344 EST RE: Quantiferon Lab was unable to be performed because there wasn't enough blood in the tubes! documented in this encounter Plan of Treatment Upcoming Encounters Date Type Department Care Team (Late st Contact Info) Description 05/18/2024 15:30 EST Office Visit [facility] Pulmonology [address] [facility], [place] [address] Leif Lovelace MD 111 [facility], [address] [place] [address] documented as of this encounter Visit Diagnoses Not on filedocumented in this encounter Care Teams Wool Merchant Relationship Specialty Start Date End Date Reggie Peralta MD 4 [facility] [address] [place] [address] PCP - General 01/20/16 01/20/21 documented as of this encounter
--- OUTSIDE RECORDS SUMMARY | 2024-04-26 16:05 | XMS_ITS | Encounter Summary ---
Author Organization [facility] Address [address] [place] [address] Care Team Providers Care Rubber Curer Name Role Phone Diane Law NP Primary Care Provider [phone] Leif Lovelace MD Unavailable [phone] Encounter Details Date Type Department Care Team (Late Contact Info) Description 12/18/2021 Lab Requisition [facility] Pathology & Laboratory Medicine - [address] [address] Outr Resulting Lab, Provider Social History Tobacco [...] Upcoming Encounters Date Type Department Care Team ([facility] Contact Info) Description 05/18/2024 15:[address] [facility] Pulmonology [address] [place] [address] [place] [address] Leif Lovelace MD 111 [facility] 5 [place] [address] documented as of this encounter Procedures Procedure Name Priority Date/Time Associated Diagnosis Comments CELIAC DISEASE PANEL Routine 12/17/2021 14:55 EDT documented in this encounter Results * CELIAC DISEASE PANEL (12/17/2021 14:55 EDT) Tissue Transglutaminase Antibody IGA <1.2 <4.0 U/mL 12/22/2021 12:38 EDT [facility] Comment: A negative result may be due to IgA deficiency and does not rule out celiac disease. ? Negative: ??<4.0 U/mL ? Weak Positive: ??4.0 - 10.0 U/mL ? Positive: ??>10.0 U/mL Results were obtained with the [employer] QUANTA Lite R h-tTG IgA MEDARDO assay on the [employer] DSX. IgA 256 85 - 499 mg/dL 12/22/2021 12:38 EDT [facility] Celiac Disease Interpretation Negative Serology. Celiac disease unlikely. Approximately 10% of patients with celiac disease are seronegative. Patients who are already adhering to a gluten-free diet may also be seronegative. If celiac disease is highly clinically suspected, referral to gastroenterology for additional evaluation is recommended. 12/22/2021 12:38 EDT [facility] Blood VENOUS BLOOD / Unknown 12/17/2021 14:55 EDT 12/18/2021 17:14 EDT Provider Outr Resulting Lab IMMUNOLOGY A ND SEROLOGY ORDERABLES [facility] [address] [place] [address] documented in this encounter Visit Diagnoses Not on filedocumented in this encounter Care Teams Rubber Curer Relationship Specialty Start Date End Date Diane Law, GENERAL PRODUCTION LABORER [address] [place] [address] PCP - General 01/21/21 Leif Lovelace MD 130 [facility], [address] [place] [address] Consulting Clinician Pulmonary Disease 08/24/23 documented as of this encounter
--- OUTSIDE RECORDS SUMMARY | 2024-04-26 16:05 | XMS_ITS | Encounter Summary ---
Author Organization [facility] Address [address] [place] [address] Care Team Providers Care Curriculum Facilitator Name Role Phone Diane Law NP Primary Care Provider [phone] Leif Lovelace MD Unavailable [phone] Encounter Details Date Type Department Care Team (Late st Contact Info) Description 09/28/2023 Telephone [facility] Pulmonology & Critical Care - [address] [phone] Leif Lovelace MD [address] [place] [address], [address] [place] [address] Social History Tobacco Use Types [...] encounter Miscellaneous Notes * Telephone Encounter - Lydia Diallo RN - 09/28/2023 1640 EDT Patient updated and verbalized understanding. documented in this encounter Plan of Treatment Upcoming Encounters Date Type Department Care Team (Late st Contact Info) Description 05/18/2024 15:30 EST Office Visit [facility] Pulmonology [address] [facility] [place] [address] Leif Lovelace MD 111 [facility], [address] [place] [phone] documented as of this encounter Visit Diagnoses Not on filedocumented in this encounter Care Teams Curriculum Facilitator Relationship Specialty Start Date End Date Diane Law NP [address] [place] [address] PCP - General 01/21/21 Leif Lovelace MD 130 [facility], [address] [place] [phone] Consulting Clinician Pulmonary Disease 08/24/23 documented as of this encounter
--- OUTSIDE RECORDS SUMMARY | 2024-04-26 16:05 | XMS_ITS | Encounter Summary ---
Author Organization [facility] Address [address] [place] [id number] Care Team Providers Care Gauge And Instrument Inspector Name Role Phone Reggie Peralta MD Primary Care Provide r Reason for Referral * (Routine) - Closed Specialty Diagnoses / Procedures Referred By Contac t Referred To Contact Diagnoses Retinal edema Posterior uveitis, left Procedures OCT (OPHTHALMIC DIGITAL IMAGING, POSTERIOR SEGMENT) Isreal Reinoso MD [address] [place] [phone] Referral ID Status Reason Start Date Expiration Date Visits Re quested Visits Authorized [id number] Closed 11/14/2018 1 1 Reason for Visit * Reason Comments Eye Problem Anterior Uveitis lef t eye Encounter Details Date Type Department Care Team (Late st Contact Info) Description 11/14/2018 10:30 EDT Office Visit [facility] Ophthalmology - [address] [id number] Isreal Reinoso MD [address] [place] [phone] Social History Tobacco Use Types Packs/Day [...] Progress Notes * Isreal Reinoso MD - 11/14/2018 1030 EDT Chief Complaint Patient presents with ??? Eye Problem Anterior Uveitis left eye HPI Location: Left eye Pain: 0 - No pain Quality: Blurry Severity: Moderate Duration: Months Timing: Intermittent Lasts: Continuous Context: Anterior Uveitis left eye Modifying factors: RE left eye Associated Signs & Symptoms: Vision a little better right eye and stable left eye No pain no F/F Visual Fluctuations: Floaters Attestation: Here for a follow up in her anterior uveitis left eye. Per patient vision seems to be a little better in her right eye and stable in her left eye. No pain today, no flashes, no floaters.Moderate, months, constant, continuous. Base Eye Exam Visual Acuity (Snellen - Linear) Right Left Dist sc 20/60 20/80 Dist ph sc 20/40 20/30 Tonometry (Applanation, 10:27) Right Left Pressure 15 19 Pupils Pupils Right PERRL Left PERRL Neuro/Psych Oriented x3: Yes Mood/Affect: Normal Dilation Left eye: 2.5% Phenylephrine, 1.0% Mydriacyl @ 10:36 Slit Lamp and Fundus Exam Slit Lamp Exam Right Left Lids/Lashes Normal Normal Conjunctiva/Sclera White and quiet White and quiet Cornea Clear Clear Anterior Chamber Deep and quiet Deep and quiet Iris Round and reactive Physological trace cell, no flare Lens Clear Vitreous Rare trapped Cells, no haze; inferior snowballs Fundus Exam Right Left Disc Normal C/D Ratio 0.3 Macula cellophane reflex/CME Vessels Normal Periphery Retina attached, no snow teixeira or snowballs Please refer to large retinal drawing. IMAGING. OCT REPORT Indications: Retinal edema Findings: Right Eye Left Eye Post hyaloid debris vs trace ERM Resolution of IRF Original test to be found in patients shadow chart DIAGNOSES: 1. Anterior uveitis 2. Posterior uveitis, left OCT (OPHTHALMIC DIGITAL IMAGING, POSTERIOR SEGMENT) 3. 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 High ANAIS (1.5 upper limit of normal) Chest X-ray??highly suspicious of sarcoidosis Had pneumology evaluation on??10/27/2018 at [facility], and returning for a CAT scan for her lungs as wellas they did not have her chest x-ray at the visit ?? Posterior/intermediate uveitis Controlled s/p 10/13/18 Ozurdex left eye Was not controlled under PF Uveitic retinal edema left eye Controlled s/p 10/13/18 Ozurdex left eye Return in about 2 months (around 01/14/2019), or if symptoms worsen or fail to improve, for OCT, undilated first have RR check . I have reviewed the past medical, family, [...] Info) Description 05/18/2024 15:30 EST Office Visit [facility] Pulmonology [address] [facility], [place] [address] Leif Lovelace MD [address] [facility], [address] [place] [address] Scheduled Orders Name Type Priority Associated Diagnoses Orde r Schedule OCT (OPHTHALMIC DIGITAL IMAGING, POSTERIOR SEGMENT) Ophthalmology Routine Retinal edema Posterior uveitis, left Ordered: 11/14/2018 documented as of this encounter Visit Diagnoses Diagnosis Anterior uveitis- Primary Unspecified iridocyclitis Posterior uveitis, left Chorioretinitis, unspecified Retinal edema documented in this encounter Eye Exam Visual Acuity (Snellen - Linear) Right eye Left eye Dist sc 20/60 20/80 Dist ph sc 20/40 20/30 Tonometry (Applanation, 10:27) Right eye Left eye Pressure 15 19 Pupils Pupils Right eye PERRL Left eye PERRL Neuro/Psych Oriented x3: Yes Mood/Affect: Normal Dilation Left eye: 2.5% Phenylephrine , 1.0% Mydriacyl @ 10:36 Slit Lamp Exam Right eye Left eye Lids/Lashes Normal Normal Conjunctiva/Sclera White and quiet White and haresh et Cornea Clear Clear Anterior Chamber Deep and quiet Deep and quiet Iris Round and reactive Physological trace cell, no flare Lens Clear Vitreous Rare trapped Nerissa ls, no haze; inferior snowballs Fundus Exam Right eye Left eye Disc Normal C/D Ratio 0.3 Macula cellophane refle x/CME Vessels Normal Periphery Retina attached, no snow teixeira or snowballs Care Teams Gauge And Instrument Inspector Relationship Specialty Start Date End Date Reggie Peralta MD [address] [place] [id number] PCP - General 01/20/16 01/20/21 documented as of this encounter
--- OUTSIDE RECORDS SUMMARY | 2024-04-26 16:05 | XMS_ITS | Encounter Summary ---
Author Organization [facility] Address [address] [place] [address] Care Team Providers Care Pelt Shearer Name Role Phone Reggie Peralta MD Primary Care Provide r Reason for Referral * Radiology Services (Routine) - Closed Specialty Diagnoses / Procedures Referred By Casimiro lima Referred To Contact Diagnoses Iritis of left eye Procedures CHEST PA AND LATERAL Isreal Reinoso MD [address] [facility] [address] [place] [address] Referral ID Status Reason Start Date Expiration Date Visits Re quested Visits Authorized [id number] Closed 07/27/2018 1 1 * Consult (Routine) - Closed Specialty Diagnoses / Procedures Referred By Casimiro lima Referred To Contact Pulmonary Disease Diagnoses Sarcoidosis of lung ([facility]) Isreal Reinoso MD [address] [facility] [address] [place] [address] [facility] Pulmonology [address] [place] [address] Referral ID Status Reason Start Date Expiration Date V isits Requested Visits Authorized [id number] Closed Specialty Services Required 07/27/2018 1 1 Question Answer Reason for Request: Suspected sarcoidosis. Iritis. High serum ANAIS. Chronic cough. Comments Please investigate possible sarcoidosis. Reason for Visit * Reason Comments Eye Problem F/u on Uveitis left eye. RE left eye. Encounter Details Date Type Department Care Team (Late st Contact Info) Description 07/27/2018 9:00 EST Office Visit [facility] Ophthalmology - [address] [phone] Isreal Reinoso MD [address] [facility], [address] [place] [address] Discharge Disposition: Auto Discharge Social History Tobacco [...] as of this encounter Discharge Diagnoses Diagnosis R59.0 Localized enlarged lymph nodes-R59.0[ICD-10-CM] documented in this encounter Discharge Disposition Disposition Code Departure Means Destination Auto Discharge documented in this encounter Progress Notes * Isreal Reinoso MD - 07/27/2018 0900 EST Chief Complaint Patient presents with ??? Eye Problem F/u on Uveitis left eye. RE left eye. HPI Location: Left eye Pain: 3.0 Quality: Aching Severity: Moderate Duration: Weeks Timing: Once-off Lasts: Continuous Context: F/u on Uveitis left eye. RE left eye. Modifying factors: Uveitis,left. Associated Signs & Symptoms: VA improving. 3/10 pain on and off left eye. Less light sensitivity. No new F and F. Using Pred forte q 2 hours w/a and Cyclogyl once left eye Visual Fluctuations: Attestation: left eye feeling better- pain on and off. Base Eye Exam Visual Acuity (Snellen - Linear) Right Left Dist cc 20/25 +2 20/50 +1-1 Dist ph cc NI Correction: Glasses Tonometry (Applanation, 9:31) Right Left Pressure 14 16 Pupils Pupils APD Right PERRL - Left PERRL Dilated Neuro/Psych Oriented x3: Yes Mood/Affect: Normal Please refer to large retinal drawing. IMAGING: OCT REPORT Indications: Cystoid Macular Edema Findings: Right Eye Left Eye Normal Decrease in IRF and CHARTER BOAT OPERATOR Original test to be found in patients shadow chart DIAGNOSES: 1. Iritis of left eye 2. 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 High ANAIS (1.5 upper limit of normal) Chronic cough thought to be associated to GERD. Last albuterol use was years ago. Chest X-ray highly suspicious of sarcoidosis Refer to pneumology for sarcoidosis evaluation. Negative TB, Syphilis and Lyme serologies. Normal CBC, Creatinine, HLA-B27, CCP. History of chronic diarrhea. Negative endoscopy. No arthralgias, infectious contacts, weight loss, night sweats, erythema, mucosal ulcers. Controlled under PF q2h 1st episode 2014 ([facility] no investigation. 2nd episode now ?? Uveitic retinal edema left eye Improving under PF q2h ?? Continue PF - every 2 hours while awake Stop Cylogyl ?? Return in 1 wk for dilated exam with IVFA, photos and OCT acute left eye (IVFA to r/o posterior uveitis associated to sarcoidosis) I have reviewed the past medical, family, social and surgical history. I have reviewed the meds, allergies, and problem list. I performed my own HPI and reviewed the ROS. I personally completed the exam. The patient was instructed to call our office or go to emergency room if worse vision, worse symptoms, or new/other concerns arise. MD Nevaeh Hernandez am scribing for Dr. Isreal Reinoso MD while he is personally performing the service. (Scribe) documented in this encounter Plan of Treatment Upcoming Encounters Date Type Department Care Team (Late st Contact Info) Description 05/18/2024 15:[address] [facility] Pulmonology [address] [place] [address], [place] [address] Leif Lovelace MD [address] [facility], [address] [place] [phone] Scheduled Referrals Name Type Priority Associated Diagnoses Orde r Schedule AMB CONS/FOLLOW UP PULMONARY Outpatient Referral Routine Iritis of left eye Retinal edema Ordered: 07/27/2018 documented as of this encounter Procedures Procedure Name Priority Date/Time Associated Diagnosis Comments CHEST PA AND LATERAL Routine 07/27/2018 11:11 EST Iritis of left eye documented in this encounter Results * CHEST PA AND LATERAL (07/27/2018 11:11 EST) Anatomical Region Laterality Modality Other 07/27/2018 11:1 1 EST 07/27/2018 11:54 EST Narrative 07/27/2018 11:54 EST CHEST 2 VIEWS ??07/27/2018 11:11 AM Clinical History/Comments: H20.9-Unspecified [id number]-[id number]; iritis, High ANAIS - suspected sarcoidosis. Also r/o TB. COMPARISON: 07/13/2014. TECHNIQUE: Two views of the chest were performed using dual energy technique with bone and soft tissue reconstruction. FINDINGS: Soft tissues and extrathoracic findings: ??No abnormalities. Bones: Normal. Cardiac and mediastinal contours: There are symmetrically enlarged mediastinal or hilar lymph nodes. Hilar nodes are larger than on the prior comparison in 2014. Lungs: Normal. ?? Pleura/diaphragms: Normal. IMPRESSION: 1. ??Symmetrically enlarged mediastinal and hilar lymph nodes, highly suspicious for mediastinal sarcoidosis. No definite parenchymal lung abnormalities identified. Procedure Note Anatoliy Ferguson MD - 07/27/2018 CHEST 2 VIEWS 07/27/2018 11:11 AM Clinical History/Comments: H20.9-Unspecified [id number]; iritis, High ANAIS - suspected sarcoidosis. Also r/o TB. COMPARISON: 07/13/2014. TECHNIQUE: Two views of the chest were performed using dual energy technique with bone and soft tissue reconstruction. FINDINGS: Soft tissues and extrathoracic findings: No abnormalities. Bones: Normal. Cardiac and mediastinal contours: There are symmetrically enlarged mediastinal or hilar lymph nodes. Hilar nodes are larger than on the prior comparison in 2015. Lungs: Normal. Pleura/diaphragms: Normal. IMPRESSION: 1. Symmetrically enlarged mediastinal and hilar lymph nodes, highly suspicious for mediastinal sarcoidosis. No definite parenchymal lung abnormalities identified. Isreal Reinoso MD IMG DIAGNOSTIC IMAGI NG ORDERABLES documented in this encounter Visit Diagnoses Diagnosis Iritis of left eye- Primary Retinal edema documented in this encounter Eye Exam Visual Acuity (Snellen - Linear) Right eye Left eye Dist cc 20/25 +2 20/50 +1-1 Dist ph cc NI Correction: Glasses Tonometry (Applanation, 9:31) Right eye Left eye Pressure 14 16 Pupils Pupils APD Right eye PERRL - Left eye PERRL Dilated Neuro/Psych Oriented x3: Yes Mood/Affect: Normal Slit Lamp Exam Right eye Left eye Lids/Lashes Normal reactive ptosis Conjunctiva/Sclera White and quiet White and haresh et Cornea Clear Clear Anterior Chamber Deep and quiet Deep and quiet Iris Round and reactive, no granulomas, iris normal Dilated, iris normal, no granulomas Lens Clear Vitreous 1+ Cells, 1+ fla re, trapped cell no haze Fundus Exam Right eye Left eye Disc Normal no edema C/D Ratio 0.2 0.2 Macula fovea reflex ?CME Vessels No Sheathing Periphery no snoballs or s nowbanks, no heme Care Teams Pelt Shearer Relationship Specialty Start Date End Date Reggie Peralta MD [address] [facility] [address] [place] [id number] PCP - General 01/20/16 01/20/21 documented as of this encounter
--- OUTSIDE RECORDS SUMMARY | 2024-04-26 16:05 | XMS_ITS | Encounter Summary ---
Author Organization [facility] Address [address] [place] [address] Care Team Providers Care Visual Training Aide Name Role Phone Diane Law METAL FENCE ERECTOR Primary Care Provider [phone] Encounter Details Date Type Department Care Team (Late st Contact Info) Description 08/09/2023 Documentation Visit [facility] Planoology [address] [place] [phone] Cait Murphy MD [address] [place] [phone] Social History Tobacco Use Types Packs/Day [...] as of this encounter Progress Notes * Cait Murphy MD - 08/09/2023 1101 EST Clinic visit scheduled in error- explained to patient and patient not charged. documented in this encounter Plan of Treatment Upcoming Encounters Date Type Department Care Team (Late st Contact Info) Description 05/18/2024 15:30 EST Office Visit [facility] Pulmonology [address] [facility], [place] [address] Leif Lovelace MD [address] [place] [address], [facility] [address] [place] [phone] documented as of this encounter Visit Diagnoses Not on filedocumented in this encounter Care Teams Visual Training Aide Relationship Specialty Start Date End Date Diane Law NP [address] [place] [address] PCP - General 01/21/21 documented as of this encounter
--- OUTSIDE RECORDS SUMMARY | 2024-04-26 16:06 | XMS_ITS | Encounter Summary ---
Author Organization [facility] Address [address] [place] [address] Care Team Providers Care Material Requirements Worker Name Role Phone Reggie Peralta MD Primary Care Provide r Reason for Referral * Radiology Services (Routine) - Closed Specialty Diagnoses / Procedures Referred By Casimiro lima Referred To Contact Diagnoses Bloating Procedures NM GASTRIC EMPTYING SCAN CHG GASTRIC EMPTYING IMAGING STUDY Kristopher Lucia MD [address] [place] [phone] Referral ID Status Reason Start Date Expiration Date Visits Re quested Visits Authorized [id number] Closed 03/12/2016 1 1 Reason for Visit * Reason Comments New Patient Visit GERD/ EROSIVE ESOPHA GITIS * Consult (Routine) - Closed Specialty Diagnoses / Procedures Referred By Casimiro lima Referred To Contact General Surgery Diagnoses Chronic GERD Reggie ePralta MD [address] [place] [id number] Kristopher Lucia MD [address] [phone] Referral ID Status Reason Start Date Expiration Date Visits Re quested Visits Authorized [id number] Closed 1 1 Encounter Details Date Type Department Care Team ([facility] Contact Info) Description 03/12/2016 11:00 EDT Office Visit [facility] General Surgery - [address] [phone] Kristopher Lucia MD [address] [facility], Level 5 [place] [phone] Hiatal hernia (Primary Dx); Gastroesophageal reflux disease with esophagitis; Bloating Social History Tobacco Use Types Packs/Day Years Used Date Smoking Tobacco: Never Smokeless Tobacco: Never Sex and Gender Information Value Date Recorded Sex Assigned at Not on file Gender Identity Not on file Sexual Orientation Not on file documented as of this encounter Last Filed Vital Signs Vital Sign Reading Time Taken Comments Blood Pressure 122/64 03/12/2016 1034 EDT Pulse 64 03/12/2016 1034 EDT Temperature - - Respiratory Rate 16 03/12/2016 1034 EDT Oxygen Saturation - - Inhaled Oxygen Concentration - - Weight 67.8 kg (149 lb 6.4 oz) 03/12/2016 1034 E DT Height 154.9 cm (5' 1) 03/12/2016 1034 EDT Body Mass Index 28.23 03/12/2016 1034 EDT documented in this encounter Progress Notes * Kristopher Lucia MD - 03/12/2016 1124 EDT Division of General Surgery Date of Service: 03/12/2016 PROBLEM: 1. Hiatal hernia 2. Gastroesophageal reflux disease with esophagitis 3. Bloating HISTORY OF PRESENT ILLNESS: I am seeing Amy Alexander in the office today in consultation by Reggie Peralta MD for 1. Hiatal hernia 2. Gastroesophageal reflux disease with esophagitis 3. Bloating This is a 55 y.o. female Who had a Summer fundoplication with Dr Kwesi Delaney (I believe) down at [facility] 12 to 13 years ago. Apparently, a partial fundoplication was performed due to her symptoms ofbloating even at that time. She was reflux free for 5 to 6 years, but then her symptoms recurred, and they have increased over time. Her symptoms are mostly heartburn and chest pain. She has been to the emergency department twice for chest pain related to reflux, and it was found to be noncardiac in nature after a negative stress test. She often has unforceful regurgitation, especially at night. She can wake up with heartburn. Nighttime regurgitation was more common prior to surgery, but she sta rted getting it now. When she eats she gets nausea, diarrhea and dry heaves. However, despite this,she has not lost weight over the last 10 years, since her Summer. She avoids eating at least 1 hourbefore bed. She does not elevate the head of her bed on blocks, but sleeps sometimes upright on pillows. She avoids certain foods such as spicy foods and tomato based foods. She says she has some difficulty swallowing with thoracic dysphagia, especially to bread and other solids. She describes a gas bloat, but no excess flatus. She had an endoscopy showing a hiatal hernia, and they thought there was disruption of her fundoplication. However, she is still having dry heaves and not having alysia re gurgitation. That is only a rare event for her at this point. She is on Zantac and Protonix but uses Tums for breakthrough and uses about a bottle per week. She was waiting for approval from her insurance company to change to Dexilant. What complicates this picture slightly is that she has a diagnosis of irritable bowel syndrome. It was thought that she might have Crohn disease as diagnosed with Dr Epstein, [facility], many years ago on an endoscopy, but this has not ever been confirmed after that. Her GERD quality of life score is 40, and she is dissatisfied with her present condition. She comes today to discuss the possibility of a redo fundoplication. Past Medical History Diagnosis Date ??? Asthma ??? Gestational diabetes ??? Irritable bowel syndrome Past Surgical History Procedure Laterality Date ??? Gastric fundoplication 12/23/2005 ??? section Family History Problem Relation Age of Onset ??? Diabetes Mother ??? High Cholesterol Mother ??? High Blood Pressure Mother ??? Arthritis Father ??? Diabetes Father ??? Diabetes Brother Social History Social History ??? Marital status: Spouse name: N/A ??? Number of children: N/A ??? Years of education: N/A Social History Main Topics ??? Smoking status: Never Smoker ??? Smokeless tobacco: Never Used ??? Alcohol use None ??? Drug use: None ??? Sexual activity: Not Asked Other Topics Concern ??? None Social History Narrative Current Outpatient Prescriptions Medication Sig Dispense Refill ??? acetaminophen (TYLENOL) 325 mg tablet Take [...] Take 40 mg by mouth daily. ??? pantoprazole (PROTONIX) 40 mg tablet Take 40 mg by mouth 2 times daily. ??? ranitidine (ZANTAC) 150 mg capsule Take 150 mg by mouth 2 times daily as needed. No current facility-administered medications for this visit. No Known Allergies REVIEW OF SYSTEMS: A ten point review of systems was performed and all were negative except as listed below. Patient Active Problem List Diagnosis ??? Gastroesophageal reflux disease with esophagitis ??? Hiatal hernia OBJECTIVE: Vitals: 03/12/16 1034 BP: 122/64 Pulse: 64 Resp: 16 Weight: 67.8 kg (149 lb 6.4 oz) Height: 154.9 cm (61) Body mass index is 28.23 kg/(m^2). She is afebrile. General: No acute distress. HEENT: Normal. Neck: Supple. Skin: Normal. Lungs: Clear, bilaterally. Heart: Regular rate and rhythm. Abdomen: Soft, nondistended, nontender, no masses, no organomegaly. Vascular: Normal. Musculoskeletal: Normal. Neurologic: Normal. I personally reviewed the upper GI study with the patient showing a recurrent hiatal hernia. The tablet did get held up at the wrap level of her esophagus. There is slight angulation in the distal esophagus. ASSESSMENT & PLAN: A 55 y.o. female With a recurrent hiatal hernia after an antireflux surgery. She has recurrent symptoms at this point. I told her that reoperation is more difficult. Success rates are lower, and there are higher complication rates. Before we would ever contemplate another surgery, we would quantifyher reflux with pH probe test to be sure that we will have an impact on the amount of reflux and her symptoms. We would also get esophageal manometry to be sure she could tolerate a wrap without getting access dysphagia. We still have to discuss whether or not a partial wrap would be better due to her gas bloat symptoms, but that does worry me a little bit. She could have significant diarrhea and explosive bowels after an antireflux operation. Most people though would trade that off to be reflux free. Her gas bloat could increase. She wanted to think about surgery some more. We talked about getting a gastric emptying scan and placing a promotility agent if it showed delayed gastric emptying. I think that is very reasonable to start there, and if that is a positive test, then we will start promotility agents, knowing they canhave some risks. If it is a normal test then she will think about surgery some more pending the approval for her Dexilant prescription. CC: Primary Care Provider: Reggie Peralta MD Referring Provider: Reggie Peralta, MD Diane Robert, SARAH * Gavin Lauren - 03/12/2016 1038 EDT Gastroesophageal Reflux Disease Scale [facility] General Surgery Patient Name: Amy Alexander Date: 03/12/2016 GERD-HRQL SCALE Patient symptoms are noted as follows: How bad is your heartburn? 5 = Symptoms are incapacitating, unable to do daily activities Heartburn when lying down? 5 = Symptoms are incapacitating, unable to do daily activities Heartburn when standing up? 5 = Symptoms are incapacitating, unable to do daily activities Heartburn after meals? 5 = Symptoms are incapacitating, unable to do daily activities Does heartburn change your diet? 5 = Symptoms are incapacitating, unable to do daily activities Does heartburn wake you from sleep? 5 = Symptoms are incapacitating, unable to do daily activities Do you have difficulty swallowing? 5 = Symptoms are incapacitating, unable to do daily activities Do you have pain with swallowing? 0 = No symptoms Do you have gassy or bloating feelings? 5 = Symptoms are incapacitating, unable to do daily activities If you take medication, does it affect your daily life? 0 = No symptoms How satisfied are you with your present condition? Dissatisfied HRQL Total= 40 documented in this encounter Plan of Treatment Upcoming Encounters Date Type Department Care Team (Late st Contact Info) Description 05/18/2024 15:30 EST Office Visit [facility] Pulmonology [address] [facility], [place] [address] Leif Lovelace MD [address] [place] [address], [facility] [address] [place] [phone] Scheduled Orders Name Type Priority Associated Diagnoses Orde r Schedule NM GASTRIC EMPTYING SCAN Imaging Routine Bloating Ordered: 03/12/2016 documented as of this encounter Visit Diagnoses Diagnosis Hiatal hernia- Primary Diaphragmatic hernia without mention of obstruction or gangrene Gastroesophageal reflux disease with esophagitis Bloating Flatulence, eructation, and gas pain documented in this encounter Historical Medications * This list may reflect changes made after this encounter. Medication Sig Dispensed Refills Start Date End Date pantoprazole (PROTONIX) 40 mg tablet Take 40 mg by mouth 2 times daily. 08/24/2023 added in this encounter Care Teams Material Requirements Worker Relationship Specialty Start Date End Date Reggie Peralta MD [address] [place] [address] [address] [place] [address] PCP - General 01/20/16 01/20/21 documented as of this encounter
--- OUTSIDE RECORDS SUMMARY | 2024-04-26 16:06 | XMS_ITS | Encounter Summary ---
Author Organization [facility] Address [address] [place] [address] Care Team Providers Care Log Handling Equipment Operator Name Role Phone Unavailable Primary Care Provider Unavailabl e Encounter Details Date Type Department Care Team (Late st Contact Info) Description 07/17/1999 Results Only [facility] - Maple conversion [address] [place] [address] Derik Garcia MD [address] [place], [place] [address] Social History Tobacco Use Types Packs/Day Years Used Date Smoking Tobacco: Never Assessed Sex and Gender Information Value Date Recorded Sex Assigned at Not on file Gender Identity Not on file Sexual Orientation Not on file documented as of this encounter Plan of Treatment Upcoming Encounters Date Type Department Care Team (Late st Contact Info) Description 05/18/2024 15:30 EST Office Visit [facility] Pulmonology [address] [place] [address] Leif Lovelace MD [address] [facility] [address] [place] [phone] documented as of this encounter Procedures Procedure Name Priority Date/Time Associated Diagnosis Comments SURGICAL PATHOLOGY Routine 07/17/1999 15 :14 EST documented in this encounter Results * SURGICAL PATHOLOGY (07/17/1999 15:14 EST) Pathology Report: SURGICAL PATHOLOGY REPORT Reports generated via electronic interface contain original data; however they are lacking the format of the original report. Caution should be taken when reading/interpreti ng unformatted reports. Name: ? DALLAS CANTRELL ? Accession #: ? [id number] ? : ? 1960 (Age: 39) ??F ? Collect Date: ? 07/17/1999 ? Location: ?Receive Date: ? 07/17/1999 ? Provider: DERIK GARCIA MD Copy to: DERIK GARCIA MD ? Final Pathologic Diagnosis: MICROSCOPIC DIAGNOSIS: ? 1. ??Colon, cecum, biopsy: ? - Increased lamina propria eosinophils and patchy ? eosinophilic cryptitis. ? 2. ??Colon, right, biopsy: ? - Increased lamina propria eosinophils. ? 3. ??Colon, transverse, biopsy: ? - Active chronic inflammatory disease with patchy focally ? intense basal cryptitis and patchy basal ? lymphoplasmacytosi s. ? - No granulomas are identified. ??See comment. ? 4. ??Colon, left, biopsy: ? - Active chronic inflammatory disease, with focal intense ? basal cryptitis and basal lymphoplasmacytosi s. ? - No granulomas are identified. ? - Minimal crypt distortion. ? 5. ??Colon, sigmoid, biopsy: ? - Low grade active chronic inflammatory disease, with focal ? intense basal cryptitis and minimal crypt distortion. ? - No granulomas are identified. ? 6. ??Rectum, biopsy: ? - Mild intramucosal smooth muscle proliferation and serrated ? surface epithelium, consistent with mild mucosal prolapse ? change. ??See comment. ? Comment: COMMENT: ? Thank you for the opportunity to review this case in ? consultation. ??Based on these biopsies, the patient appears to ? have a segmental colitis effecting transverse, descending, and ? sigmoid colon while sparing the right colon and the rectum. ??The ? colitis is characterized by patchy intense basal cryptitis, ? patchy basal lymphoplasmacytosi s, and minimal crypt distortion. ? The vast majority of the neutrophilic infiltration is located in ? the lower half of the lamina propria. ??Even though there are no ? granulomas present, these findings are suggestive of inflammatory ? bowel disease, especially Crohn's colitis. ??The differential ? diagnosis, however, would also include ischemic colitis secondary ? to vasculitis, resolving infectious colitis, although the latter ? is unlikely. ? The changes of mucosal prolapse in the rectum is compatible with ? a clinical history of diarrhea. ??(Dr. Bright)/dem ? Document reviewed and electronically signed by: Conversion for CAROL BRIGHT Report ??Date: 07/18/1999 00:00 By the signature above, the attending physician certifies that he/she has personally conducted a gross and/or microscopic examination of the described specimens and rendered or confirmed the above diagnosis. Specimen(s) Received: TISSUE SUBMITTED: ? [facility] [id number] (6) CLINICAL DATA: ? Rectal bleeding Gross Description: GROSS: ? Six slides are received for review from [facility] labelled ? [id number], [id number], [id number], [id number] D, ? [id number], and [id number] F. End of Report DANIA ESCOBAR 07/17/1999 15:1 4 EST 07/17/1999 15:15 EST Derik Garcia MD PATHOLOGY ORDERABLES [facility] [address] [place] [address] documented in this encounter Visit Diagnoses Not on filedocumented in this encounter
--- OUTSIDE RECORDS SUMMARY | 2024-04-26 16:06 | XMS_ITS | Encounter Summary ---
Author Organization [facility] [place] [address] Care Team Providers Care Lighting Director Name Role Phone Derek Sharma MD Primary Care Provider [phone] Reason for Visit * Reason Onset Date Comments Eye Problem 08/10/2014 Encounter Details Date Type Department Care Team (Late st Contact Info) Description 08/10/2014 [place] [phone] Daniela Thomas MD [facility] [place] [address] Eye Problem Social History Tobacco Use Types Packs/Day Years Used Date Smoking Tobacco: Never Assessed Sex and Gender Information Value Date Recorded Sex Assigned at Not on file Gender Identity Not on file Sexual Orientation Not on file documented as of this encounter Miscellaneous Notes * Telephone Encounter - Soila Alvarez COT - 08/10/2014 2:57 PM EST Patient has pending appointment with Dr. Crowley On 09/11/14 for consult requested by Dr. 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 [address] Johnson about [address] Johnson had patient taper drops; PF qd OU and Ketrolac qd OS. Since then, symptoms have worsened, she is hoping for sooner appointment with Dr. Crowley. Suggested she call Dr. Johnson to report increased symptoms, perhaps he will want to review/change current therapy. Also will send to Roseanne for possible sooner appointment with Dr. Crowley, and to for review as well. * Telephone Encounter - KimberlyRacquel - 08/10/2014 1:41 PM EST OU eyes, blurred and has some burning, floaters, photophobic, vision declining over the past 4M, faces are blurry. Dr Johnson referring. Very difficult to drive and has stopped. Would like to speak with someone about this situation and what she can do to elieviate the situation until she comes in to see MEZ on 09/11/14. documented in this encounter Plan of Treatment Not on file documented as of this encounter Visit Diagnoses Not on filedocumented in this encounter Care Teams Lighting Director Relationship Specialty Start Date End Date Derek Sharma MD [address] [place] [id number] PCP - General 09/06/14 06/21/18 documented as of this encounter
--- OUTSIDE RECORDS SUMMARY | 2024-04-26 16:06 | XMS_ITS | Encounter Summary ---
Author Organization [facility] Address [address] [place] [address] Care Team Providers Care Rim Roller Operator Name Role Phone Unavailable Primary Care Provider Unavailabl e Encounter Details Date Type Department Care Team (Late st Contact Info) Description 07/01/2000 9:19 EST Hospital Encounter [address] [phone] Linda Martins MD [address] [place] [address] [address] [place] [phone] Social History Tobacco Use Types Packs/Day Years [...] Info) Description 05/18/2024 15:30 EST Office Visit [facility] Pulmonology [address] [place] [address] Leif Lovelace MD [address] [facility] 5 [place] [phone] documented as of this encounter Visit Diagnoses Not on filedocumented in this encounter
--- OUTSIDE RECORDS SUMMARY | 2024-04-26 16:06 | XMS_ITS | Encounter Summary ---
Author Organization [facility] [address] Care Team Providers Care Reinforcer Name Role Phone Diane Law APRN Primary Care Provider [phone] Reason for Visit * Auth/Cert Specialty Diagnoses / Procedures Referred By Contac t Referred To Contact Diagnoses GA/Sarcoid/Ebus Bronchoscopy w/ Devorah Procedures PRO BRNSCHSC VADSC EBUS DX/TX INTERVENTION PERPH LES BRONCH, W EBUS DURING INTERVENTION FOR PERIPH LESION (WRVU 1.4) Referral ID Status Reason Start Date Expiration Date Visits Re quested Visits Authorized [id number] 1 1 Encounter Details Date Type Department Care Team (Latest Contact Info) Description 03/02/2019 9:15 AM EDT - 03/02/2019 2:43 PM EDT Hospital Encounter Gastroenterology at [facility], [place] [place] [address] Kevin Fairchild MD [facility] [place] [id number] Discharge Disposition: Home Social History Tobacco Use Types Packs/Day Years Used Date Smoking Tobacco: Never Smokeless Tobacco: Never Alcohol Use Standard Drinks/Week Comments No 0 (1 standard drink = 0.6 oz pur e alcohol) Sex and Gender Information Value Date Recorded Sex Assigned at Not on file Gender Identity Not on file Sexual Orientation Not on file documented as of this encounter Last Filed Vital Signs Vital Sign Reading Time Taken Comments Blood Pressure 121/69 03/02/2019 1:57 PM EDT Pulse 78 03/02/2019 1:57 PM EDT Temperature 36.5 ??C (97.7 ??F) 03/02/2019 10:43 AM E DT Respiratory Rate 20 03/02/2019 1:57 PM EDT Oxygen Saturation 98% 03/02/2019 1:57 PM EDT Inhaled Oxygen Concentration - - Weight 64.4 kg (142 lb) 03/02/2019 10:43 AM EDT Height - - Body Mass Index 26.83 02/06/2019 9:22 AM EDT documented in this encounter Discharge Instructions * Discharge Instructions* Duyen Avery RN - 03/02/2019 2:02 PM EDT Images from the original note were not included. Bronchoscopy What to expect at home This care sheet gives you a general idea of what to expect after the test Activity Because of the sedation that you received Your judgement and reaction time are affected ?? Go home and continue to rest for the next 1 or 2 days. Avoid strenuous activities. You may resume normal activities in 48 hours. ?? Change from one position to the next slowly. You may lose your balance unexpectedly. ?? Be careful on stairs as you may be unsteady on your feet. FOR THE NEXT 24 HRS ?? DO NOT DRIVE OR OPERATE ANY MACHINERY ?? DO NOT DRINK ALCOHOLIC BEVERAGES ?? DO NOT SIGN LEGAL DOCUMENTS ?? If you are a smoker: DO NOT SMOKE WHILE YOU ARE ALONE Diet ?? Continue on liquids for the next 2 hours then you can resume your normal diet ?? If it is painful to swallow, start out with cold drinks, popsicles, and ice cream. Next, try soft foods like pudding, yogurt, canned or cooked fruit, scrambled eggs, and mashed potatoes. Avoid eating hard or scratchy foods like chips or raw vegetables. Avoid orange or tomato juice and other acidic foods that can sting the throat. Medicines ?? You may notice a sore throat, this should resolve on it's own. You may use ice chips, popsicles or lozenges to help control the discomfort Other Instructions ?? You may cough up small amounts of blood, this should resolve on it's own. IV SITE may get red or tender this is normal. You may use warm compresses 20 minutes at a time on and off for the next day or so. If the tenderness +/or redness increases or foul drainage and a red streak occurs, please contact your PCP When should you call for help? Call 911 anytime you think you may need Emergency care. For example You passed out ( lost consciousness) You have sudden chest pain or shortness of breath You cough up large amounts of bright red blood You have severe pain in your chest You have severe trouble breathing Call your Doctor now or seek medical attention You cough up more than 1/2 cup blood You have pain that does not get better after you take pain medicine You have a fever over 100 F or chills that last over eight (8) hrs and is not relieved with Tylenoltablets every 4 hours ( not to exceed 2 extra-strength or 1000 mg at a time) You still sound hoarse after a few days You have bubbles under the skin around the collarbone. These may crackle and pop when you press on them. Watch closely for changes in your health, and be sure to contact your Doctor if you have any problems Contact Numbers Wednesday - Wednesday Pulmonary Clinic [phone] Same Day Endoscopy [phone] [place] [facility] [place] ask to speak to the Pulmonary Doctor interventional radiology tech [phone] Discharge instructions reviewed with patient who expresses understanding Bronchoscopy: What to Expect at Home Your Recovery Bronchoscopy lets your doctor look at your airway through a tube called a bronchoscope. Afterward, you may feel tired for 1 or 2 days. Your mouth may feel very dry for several hours after the procedure. You may also have a sore throat and a hoarse voice for a few days. Sucking on throat lozenges orgargling with warm salt water may help soothe your sore throat. If a sample of tissue (biopsy) was taken, you may spit up a small amount of blood or have bloody saliva. This is normal. This care sheet gives you a general idea about how long it will take for you to recover. But each person recovers at a different pace. Follow the steps below to get better as quickly as possible. How can you care for yourself at home? Activity ? Do not eat anything for 2 hours after the procedure. ? Rest when you feel tired. Getting enough sleep will help you recover. ? Avoid strenuous activities, such as bicycle riding, jogging, weight lifting, or aerobic exercise, until your doctor says it is okay. ? Ask your doctor when you can drive again. Diet ? You can eat your normal diet. If your stomach is upset, try bland, low-fat foods like plain rice, broiled chicken, toast, and yogurt. ? If it is painful to swallow, start out with cold drinks, flavored ice pops, and ice cream. Next, try soft foods like pudding, yogurt, canned or cooked fruit, scrambled eggs, and mashed potatoes. Avoid eating hard or scratchy foods like chips or raw vegetables. Avoid orange or tomato juice andother acidic foods that can sting the throat. ? Drink plenty of fluids to avoid becoming dehydrated (unless your doctor tells you not to). Medicines ? Take pain medicines exactly as directed. ? If the doctor gave you a prescription medicine for pain, take it as prescribed. ? If you are not taking a prescription pain medicine, ask your doctor if you can take an cqai-fhn-vpdzmce medicine. ? If you think your pain medicine is making you sick to your stomach: ? Take your medicine after meals (unless your doctor has told you not to). ? Ask your doctor for a different pain medicine. ? If your doctor prescribed antibiotics, take them as directed. Do not stop taking them just because you feel better. You need to take the full course of antibiotics. Follow-up care is a landin part of your treatment and safety. Be sure to make and go to all appointments, and call your doctor if you are having problems. It's also a good idea to know your test resultsand keep a list of the medicines you take. When should you call for help? Call 911 anytime you think you may need emergency care. For example, call if: ? You passed out (lost consciousness). ? You have sudden chest pain and shortness of breath. ? You cough up large amounts of bright red blood. ? You have severe pain in your chest. ? You have severe trouble breathing. ??Call your doctor now or seek immediate medical care if: ? You cough up more than a few tablespoons of blood. ? You have pain that does not get better after you take pain medicine. ? You have a fever over 100??F. ? You still sound hoarse after a few days. ? You have bubbles under the skin around the collarbone. These may crackle and pop when you press on them. ??Watch closely for changes in your health, and be sure to contact your doctor if you have any problems. Where can you learn more? Visit our health information library at [email or web address]. You can also view health information on [employer], your personal patient account. Log in or sign uptoday. Enter S288 in the search box to learn more about Bronchoscopy: What to Expect at Home. Current as of: March 16, 2018 Content Version: 12.1 ?? [id number] [employer]. Care instructions adapted under license by [facility]. If you have questions about a medical condition or this instruction, always ask your healthcare professional. [employer] disclaims any warranty or liability for your use of this information. documented in this encounter Medications at Time of Discharge Medication Sig Dispensed Refills Start Date End Date omeprazole (PRILOSEC) 40 mg Capsule, Delayed Release(E.C.) Take 40 mg by mouth Daily. ranitidine (ZANTAC) 150 mg Capsule Take 150 mg by mouth Twice daily as needed. beclomethasone (QVAR) 80 mcg/actuation AerosolIndications:main tenance therapy for asthma Inhale 2 puffs into the lungs 2 times daily. Indications: Controller Medication for Asthma 1 Inhaler 11 10/27/2018 documented as of this encounter H&P Notes * Kevin Fairchild MD - 03/02/2019 11:25 AM EDT Images from the original note were not included. Pulmonary Pre-Procedure History & Physical Procedure: Bronchoscopy and EBUS See consult/clinic note. PHYSICAL EXAM: Patient Vitals for the past 8 hrs: BP Temp Temp src Pulse Resp SpO2 Weight 03/02/19 1043 131/78 36.5 ??C (97.7 ??F) Oral 66 20 98 % 64.4 kg (142 lb) HEENT: Oropharynx clear. LUNGS: Clear to auscultation bilaterally. HEART: Regular rhythm, normal S1, S2. ABDOMEN: Soft, non tender, non distended. ASA I Mallampati: I ?? A/P: Proceed with bronchoscopy. Risks and benefits of the procedure explained to the patient. Consent signed. Kevin Fairchild MD 03/02/2019 11:25 AMPatient Name: Amy Alexander Patient Age: 58 y.o. Birthdate: 1960 Admit date: 03/02/2019 Attending Physician: Kevin Fairchild MD documented in this encounter Plan of Treatment Not on file documented as of this encounter Procedures Procedure Name Priority Date/Time Associated Diagnosis Comments NON-INSOLE PRESSER FINAL REPORT Routine 03/02/2019 2:05 PM EDT NON-INSOLE PRESSER FINAL REPORT Routine 03/02/2019 2:02 PM EDT NON-INSOLE PRESSER FINAL REPORT Routine 03/02/2019 1:58 PM EDT DIFFERENTIAL BODY FLUID, MANUAL Routine 03/02/2019 12:16 PM EDT IMMUNOPHENOTYPING FLOW CYTOMETRY (BLOOD) Routine 03/02/2019 12:16 PM EDT FLUID REVIEW REPORT Routine 03/02/2019 1 2:16 PM EDT FLOW CYTOMETRY REPORT Routine 03/02/2019 12:16 PM EDT HC MYCOBACTERIA CULTURE Routine 03/02/20 19 12:16 PM EDT HC PNEUMOCYSTIS STAIN Routine 03/02/2019 12:16 PM EDT HC SPUTUM CULTURE Routine 03/02/2019 12: 16 PM EDT HC FUNGUS CULTURE, MISC SOURCE Routine 03/02/2019 12:16 PM EDT HC BODY FLUID CELL CT W/DIFF Routine 03/02/2019 12:16 PM EDT CYTOPATHOLOGY NON-GYNECOLOGICAL Routine 03/02/2019 12:15 PM EDT CYTOPATHOLOGY NON-GYNECOLOGICAL Routine 03/02/2019 12:15 PM EDT CYTOPATHOLOGY NON-GYNECOLOGICAL Routine 03/02/2019 12:15 PM EDT Bronchoscopy, Diagnostic W Lavage ([id number]) 03/02/2019 11:49 AM EDT Sarcoid Brnschsc [facility] Ebus Dx/Tx Intervention Perph Les ([id number]) 03/02/2019 11:49 AM EDT Sarcoid BRONCHOSCOPY Routine 03/02/2019 11:36 AM EDT documented in this encounter Results * Non-Employment Trainer Final Report (03/02/2019 2:05 PM EDT) Diagnosis Discussion [id number] ? Location: ; [facility]; A The signing pathologist has (i) examined the relevant preparation(s) for the specimen(s) and (ii) rendered or confirmed the diagnosis(es). . ? Non-Employment Trainer Final DIAGNOSIS Negative for Malignancy Electronically signed by: ??Trinidad Patterson MD Verified: ??03/07/2019 ?Pathologist Performed at: ??-[facility] [place], [place], [place] DISCUSSION Lymph node, station 7 (EBUS-guided FNA): Rare clusters of epitheloid histiocytes are noted, ?consistent with ??granulomas. AFB and GMS stains are negative for mycobacterial and fungal organisms respectively. Lymphoid cells, predominantly small lymphocytes, are present; compatible with lymph node sampling. Occasional bland respiratory epithelial cells with cilia present. Negative for matastatic carcinoma. Clinical and radiologic correlation is required. ?If a lymphoproliferative disorder is suspected clinically, additional material for flow cytometry analysis may be considered as clinically indicated. (Cell block was examined.) CLINICAL INFORMATION Specimen Source : Lymph node, station 7 (EBUS-guided FNA, assisted) Pertinent Clinical Data and Significant Therapy: 58 yo woman with mediastinal lymphadenopathy Clinical Impression : Sarcoidosis Pertinent Radiologic Findings ??: (not provided) Gross Description: Received in Formalin approximately 60 mL total volume of clear, pink fluid, with clots. Total Preparation: Diff-Quik 2; Pap Stain 2; Cell Block 1. Fine Needle Aspiration Immediate Assessment: Evaluation Episode #1 (2 slides): Adequate for final diagnosis. A few scattered lymphocytes. Immediate Assessment by: Trinidad Patterson MD (Cytopathologist). . CLINICAL INFORMATION Note: The above attending cytopathologist personally examined the Immediate Assessment slides and rendered the Immediate Assessment. Such assessments are preliminary; see Diagnosis and Discussion for final interpretation. 03/07/2019 11:15 AM EDT [facility] LYMPH NODE SPECIMEN / Unknown 03/02/2019 2:05 PM EDT 03/02/2019 2:05 PM EDT Kevin Fairchild MD PATHOLOGY/CYTOLOGY ORDERABLES Performing Organization Address [facility]/State/ZIP Co de Phone Number [facility] [place] [address] * Non-Employment Trainer Final Report (03/02/2019 2:02 PM EDT) Diagnosis Discussion [id number] ? Location: 4T; [facility]; A The signing pathologist has (i) examined the relevant preparation(s) for the specimen(s) and (ii) rendered or confirmed the diagnosis(es). . ? Non-Employment Trainer Final DIAGNOSIS Negative for Malignancy Electronically signed by: ??Leonardo LYON, Trinidad Verified: ??03/07/2019 ?Pathologist Performed at: ??-[facility] [place], [place], [place] DISCUSSION Lymph node, 4L (EBUS-guided FNA): Non-caseating granulomas are present. AFB and GMS stains are negative for mycobacteria and fungal organisms respectively. Lymphoid cells, predominantly small lymphocytes, are present; compatible with lymph node sampling. [place] respiratory epithelial cells with cilia are seen. Negative for metastatic carcinoma. Clinical and radiologic correlation is required. ?If a lymphoproliferative disorder is suspected clinically, additional material for flow cytometry analysis may be considered as clinically indicated. (Cell block was examined.) CLINICAL INFORMATION Specimen Source : Lymph node, 4L (EBUS-guided FNA, assisted) Pertinent Clinical Data and Significant Therapy: 58 yo woman with mediastinal lymphadenopathy Clinical Impression : Sarcoidosis Pertinent Radiologic Findings ??: (not provided) Gross Description: Received in Formalin approximately 60 mL total volume of clear, pink fluid, with clots. Total Preparation: Diff-Quik 1; Pap Stain 1; Cell Block 1. Fine Needle Aspiration Immediate Assessment: Evaluation Episode #1 (1 slide): Adequate for final diagnosis. Lymphoid cells and rare clusters of histiocytes ?consistent with granulomas. Immediate Assessment by: Trinidad Patterson MD (Cytopathologist). . CLINICAL INFORMATION Note: The above attending cytopathologist personally examined the Immediate Assessment slides and rendered the Immediate Assessment. Such assessments are preliminary; see Diagnosis and Discussion for final interpretation. 03/07/2019 11:14 AM EDT [facility] LYMPH NODE SPECIMEN / Unknown 03/02/2019 2:02 PM EDT 03/02/2019 2:02 PM EDT Kevin Fairchild MD PATHOLOGY/CYTOLOGY ORDERABLES [facility] [place] [address] * Non-Employment Trainer Final Report (03/02/2019 1:58 PM EDT) Diagnosis Discussion [id number] ? Location: 4T; [facility]; A The signing pathologist has (i) examined the relevant preparation(s) for the specimen(s) and (ii) rendered or confirmed the diagnosis(es). . ? Non-Employment Trainer Final DIAGNOSIS Negative for Malignancy Electronically signed by: ??Trinidad Patterson MD Verified: ??03/07/2019 ?Pathologist Performed at: ??-[facility] [place], [place], [place] DISCUSSION Lymph node, 4R (EBUS-guided FNA): Few clusters of epithelioid histiocytes are noted, ?consistent with ??granulomas. AFB and GMS stains are negative for mycobacteria and fungal organisms respectively. Lymphoid cells, predominantly small lymphocytes, are present; compatible with lymph node sampling. Occasional bland respiratory epithelial cells with cilia and cartilage are seen. Negative for metastatic carcinoma. Clinical and radiologic correlation is required. ?If a lymphoproliferative disorder is suspected clinically, additional material for flow cytometry analysis may be considered as clinically indicated. (Cell block was examined.) CLINICAL INFORMATION Specimen Source : Lymph node, 4R (EBUS-guided FNA, assisted) Pertinent Clinical Data and Significant Therapy: 58 yo woman with mediastinal lymphadenopathy Clinical Impression : Sarcoidosis Pertinent Radiologic Findings ??: (not provided) Gross Description: Received in Formalin approximately 60 mL total volume of clear, pink fluid, with clots. Total Preparation: Diff-Quik 2; Pap Stain 2; Cell Block 1. Fine Needle Aspiration Immediate Assessment: Evaluation Episode #1 (1 slide): Inadequate for final diagnosis. Mostly blood. Evaluation Episode #2 (1 slide): Adequate for final diagnosis. . CLINICAL INFORMATION Lymphocytes present. Immediate Assessment by: Trinidad Patterson MD (Cytopathologist). Note: The above attending cytopathologist personally examined the Immediate Assessment slides and rendered the Immediate Assessment. Such assessments are preliminary; see Diagnosis and Discussion for final interpretation. 03/07/2019 11:11 AM EDT [facility] LYMPH NODE SPECIMEN / Unknown 03/02/2019 1:58 PM EDT 03/02/2019 1:58 PM EDT Kevin Fairchild MD PATHOLOGY/CYTOLOGY ORDERABLES [facility] [place] [address] * Flow Cytometry Report (03/02/2019 12:16 PM EDT) Flow Cytometry Report [id number] ? Location: 4T; [facility]; A The signing pathologist has (i) examined the relevant preparation(s) for the specimen(s) and (ii) rendered or confirmed the diagnosis(es). . ?Flow Cytometry DIAGNOSIS Flow cytometric diagnosis: ?? Normal immunophenotyping results. No monotypic B-cell population or phenotypically abnormal T-cell population or increase in blasts is detected. Please see morphology report for final delineation. NOTE: Some lymphomas are not detected by flow analysis. Electronically signed by: ??Biju Urbina MD Verified: ??03/03/2019 ?Hematopathologist Performed at: ??-[facility] [place], [place], [place] DISCUSSION Blasts based on CD45 expression and orthogonal light scatter, are not increased. The CD19 positive B-cells have a polytypic expression of surface immunoglobulin light chain ([employer]ver[employer]:Lambda ratio at 1.2). The T-cells are an admixture of CD4+ and CD8+ T lymphocytes (ratio of 8). No loss or atypical intensity distributions are seen for any delarosa T antigen (CD2, 3, 4+8, 5, 7). There is no increase in PR55-wnvcjpjp/CD3-ne g NK cells. Flow analysis is an ancillary study. A definite diagnosis requires correlation with the morphologic features of this process and if necessary, correlation with other ancillary studies like immunohistochemistry , enzyme cytochemistry and/or cyto/ molecular genetics. This test was developed and its performance characteristics determined by the Clinical Flow Cytometry Laboratory at [facility]. It has not been cleared or approved by the U.S. Food and Drug Administration. ??The FDA has determined that such clearance or approval is not necessary. ??This test is used for clinical purposes. ??It should not be regarded as investigational or for research. This laboratory is certified under the Clinical Laboratory Improvement Act of 1988 (CLIA) as qualified to perform high complexity clinical laboratory testing. SPECIMEN PROCESSING [id number] Cells for immunophenotypic analysis were derived from BAL. CD45 vs side scatter gating was utilized to identify a lymphoid analysis region that comprises approximately 57-59% of all cells. The following markers were assessed: CD2, CD3, CD4, CD5, CD7, CD8, CD10, CD19, CD45, CD56, kappa light chain, and lambda light chain. CLINICAL INFORMATION mediastinal adenopathy [facility] 03/02/2019 12:1 6 PM EDT Kevin Fairchild MD PATHOLOGY/CYTOLOGY ORDERABLES [facility] [place] [address] * Fluid Review Report (03/02/2019 12:16 PM EDT) Fluid Review Report [id number] ? Location: 4T; [facility]; A The signing pathologist has (i) examined the relevant preparation(s) for the specimen(s) and (ii) rendered or confirmed the diagnosis(es). . ? Fluid Review DIAGNOSIS Pleural fluid, fluid review: No malignant cells are seen on the cytocentrifuge preparation. Electronically signed by: ??Ciara LYON, Biju Verified: ??03/03/2019 ?Hematopathologist Performed at: ??-[facility] [place], [place], [place] DISCUSSION This fluid review is best for evaluation of abnormal lymphocytic infiltrates and blasts in body-fluid specimens. For cases with metastatic nonlymphoid malignancies or those with subtle involvement, specimens are better evaluated cytopathologically where immunohistochemical workup can be performed for a more definitive diagnosis. ADDITIONAL STUDIES Microscopic Description: ?? WBC/uL: ? 193 ? 200 cells counted by manual count. ?# ?? PMN: ?? 2 ?? MN: ?191 ?? Other: 0 Polymorphonuclear cells (PMN) include neutrophils, eosinophils and basophils. Mononuclear cells (MN) include lymphocytes and monocytes. Abnormalities, if any, are described above. CLINICAL INFORMATION Specimen: ? Internal FR Clinical Diagnosis: ? 58 y.o. 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 Hilar and mediastinal lymphadenopathy. [facility] 03/02/2019 12:1 6 PM EDT Kevin Fairchild MD PATHOLOGY/CYTOLOGY ORDERABLES [facility] [place] [address] * Differential Body Fluid, Manual (03/02/2019 12:16 PM EDT) Polymorph % Man 1 % [facility] Comment: Rare WBC phagocytosis present Polymorphonuclear cell percent and absolute values may contain Neutrophils, Eosinophils, and Basophils. Body fluid smear will be scanned manually for concordance. Mononuc % Man 99 % [facility] Comment: Mononuclear cell percent and absolute values may contain Lymphocytes and Monocytes. Body fluid smear will be scanned manually for concordance. Polymorph ABS Man 2 /mcl [facility] Comment: Polymorphonuclear cell percent and absolute values may contain Neutrophils, Eosinophils, and Basophils. Body fluid smear will be scanned manually for concordance. Mononuc ABS Man 191 /mcl [facility] Comment: Mononuclear cell percent and absolute values may contain Lymphocytes and Monocytes. Body fluid smear will be scanned manually for concordance. Tot Diff Ct BF 200 Cells [facility] Bronchoalveolar lavage fluid specimen (specimen) 03/02/2019 12:16 PM EDT 03/02/2019 1:55 PM EDT Narrative Resulting Agency Comment Spec In Lab Kevin Fairchild MD BODY FLUIDS AND STO OLS ORDERABLES Performing Organization Address [facility] [facility] Co de Phone Number [facility] [place] [place] [address] * AFB culture Bronchial Alveolar Lavage (03/02/2019 12:16 PM EDT) Acid Fast Bacilli Culture No Acid Fast Bacilli isolated If active tuberculosis is suspected, the patient should be on [employer] PRECA[employer]IONS. Call Infection Prevention for assistance if needed. [facility] Acid Fast Stain No Acid Fast Bacilli seen [facility] Bronchoalveolar lavage fluid specimen (specimen) 03/02/2019 12:16 PM EDT 03/02/2019 2:09 PM EDT Comment:RML Narrative Resulting Agency Comment Spec In Lab Kevin Fairchild MD MICROBIOLOGY - GENE RAL ORDERABLES Performing Organization Address City/[facility]/ZIP Co de Phone Number [facility] [place] [address] * Fungus culture Bronchial Alveolar Lavage (03/02/2019 12:16 PM EDT) Fungus Culture No Fungus isolated [facility] Bronchoalveolar lavage fluid specimen (specimen) 03/02/2019 12:16 PM EDT 03/02/2019 2:09 PM EDT Comment:RML Narrative Resulting Agency Comment Spec In Lab Kevin Fairchild MD MICROBIOLOGY - GENE RAL ORDERABLES Performing Organization Address [facility]/ZIP Co de Phone Number [facility] [place] [place] [address] * Immunophenotyping Flow Cytometry (03/02/2019 12:16 PM EDT) Immunophenotyping Flow See Comment [facility] Comment: When completed by the Pathologist, the Flow Cytometry Report ([id number]) will display under the Pathology Results section within eDH. Specimen of unknown material (specimen) 03/02/2019 12:16 PM EDT 03/02/2019 1:55 PM EDT Narrative Resulting Agency Comment Spec In Lab Kevin Fairchild MD HEMATOLOGY ORDERABL ES Performing Organization Address [facility] Co de Phone Number [facility] [place] [address] * Pneumocystis Carinii Stain Bronchial Alveolar Lavage (03/02/2019 12:16 PM EDT) Pneumocystis Carinii Stain Fluorescent stain negative for: Pneumocystis jiroveci (carinii) [facility] Bronchoalveolar lavage fluid specimen (specimen) 03/02/2019 12:16 PM EDT 03/02/2019 2:09 PM EDT Comment:RML Narrative Resulting Agency Comment Spec In Lab Kevin Fairchild MD MICROBIOLOGY - GENE RAL ORDERABLES Performing Organization Address City/[facility]/ZIP Co de Phone Number [facility] [place] [address] * Cell Count Body Fluid Bronchial Alveolar Lavage; additional orders entered (03/02/2019 12:16 PM EDT) Body Fluid Source BAL [facility] Color, Fld Colorless [facility] Appearance, Fld Slightly Hazy [facility] WBC Count, Fld 193 /[facility] Comment: Body Fluid was manually performed due to quality of specimen. The reported WBC value may include mesothelial cells-lining cells. Counts may be inaccurate due to age of specimen Guideline listed below apply to all body fluids. Differentials on BAL specimens are performed by the Cytology lab section. When Body Fluid WBC count is greater than Zero, a smear is made and scanned. All scan information is correlated with numeric results prior to being released to patients chart. Bronchoalveolar lavage fluid specimen (specimen) 03/02/2019 12:16 PM EDT 03/02/2019 1:55 PM EDT Narrative Resulting Agency Comment Spec In Lab Kevin Fairchild MD BODY FLUIDS AND STO OLS ORDERABLES Performing Organization Address [facility] [place] [place] [address] * Lower Respiratory Culture Bronchial Alveolar Lavage (03/02/2019 12:16 PM EDT) Lower Respiratory Culture No growth [facility] Gram Stain Few squamous epithelial cells Few Neutrophils seen No microorganisms seen. [facility] Bronchoalveolar lavage fluid specimen (specimen) 03/02/2019 12:16 PM EDT 03/02/2019 2:09 PM EDT Comment:RML Narrative Resulting Agency Comment Spec In Lab Kevin Fairchild MD MICROBIOLOGY - GENE RAL ORDERABLES Performing Organization Address [facility]/ZIP Co de Phone Number [facility] [place] [address] * Cytopathology Non-Gynecological (03/02/2019 12:15 PM EDT) AP Specimen 03/02/2019 12:1 5 PM EDT 03/02/2019 12:15 PM EDT Narrative [facility] - 03/02/2019 12:15 PM EDT Specimen requisition ordered. ??Separate Pathology report to follow Kevin Fairchild MD PATHOLOGY/CYTOLOGY ORDERABLES Performing Organization Address City/[facility]/[place] [address] * Cytopathology Non-Gynecological (03/02/2019 12:15 PM EDT) AP Specimen 03/02/2019 12:1 5 PM EDT 03/02/2019 12:15 PM EDT Narrative [facility] - 03/02/2019 12:15 PM EDT Specimen requisition ordered. ??Separate Pathology report to follow Kevin Fairchild MD PATHOLOGY/CYTOLOGY ORDERABLES Performing Organization Address [facility]/[place] [address] * Cytopathology Non-Gynecological (03/02/2019 12:15 PM EDT) AP Specimen 03/02/2019 12:1 5 PM EDT 03/02/2019 12:15 PM EDT Narrative [facility] - 03/02/2019 12:15 PM EDT Specimen requisition ordered. ??Separate Pathology report to follow Kevin Fairchild MD PATHOLOGY/CYTOLOGY ORDERABLES Performing Organization Address [facility]/[place] [address] * BRONCHOSCOPY (03/02/2019 11:36 AM EDT) BRONCHOSCOPY [facility]choscopy ___ Patient Name: Amy Alexander ? Procedure Date: 03/02/2019 11:36 AM ? Age: 58 ? ___ Procedure: ?Bronchoscopy Indications: ?Mediastinal adenopathy, Paratracheal ?adenopathy Providers: ?Octavio Richardson ?Su Marr Referring MD: ? Ramiro Peralta Requesting Physician: Medicines: ?General Anesthesia Complications: ?No immediate complications. ?Estimated blood loss: Minimal ___ Procedure: ?Pre-Anesthesia Assessment: ?- A History and Physical has been ?performed. The patient's ?medications, allergies and ?sensitivities have been reviewed. ?- The risks and benefits of the ?procedure and the sedation options ?and risks were discussed with the ?patient. All questions were answered ?and informed consent was obtained. ?- ASA Grade Assessment: III - A ?patient with severe systemic disease. ?After obtaining informed consent, ?the bronchoscope was introduced ?through the mouth, via the ?endotracheal tube (the patient was ?intubated for the procedure) and ?advanced to the tracheobronchial ?tree of both lungs. The procedure ?was accomplished without difficulty. ?The patient tolerated the procedure ?well. Moderate Sedation: ? General anesthesia Findings: ? Visualized airway was normal with no endobronchial ? lesions and no evidence of inflammation in the ? airways, minimal secretions. The medistainal lymph ? nodes were visualized with EBUS. The mediastinal ? lymph nodes appeared enlarged with lobular ? septations, no calcifications. FNA with EBUS-guidance ? was performed on lymph node stations 4R, 4L, and 7 Impression: ? - Mediastinal adenopathy ?- Paratracheal adenopathy ?- The airway examination was normal. ?- Many abnormal lymph nodes in the ?right lower paratracheal region ?(level 4R), left lower paratracheal ?region (level 4L) and subcarinal ?mediastinum (level 7), sampled with ?EBUS-guided FNA. The diagnosis is ?suspicious for sarcoid. Recommendation: ? - Await biopsy results. ?- Written discharge instructions ?were provided to the patient. Attending Participation: ? I was present and participated during the entire ? procedure, including non-landin portions. Kevin Fairchild, 03/09/2019 8:30:03 AM Number of Addenda: 0 Note Initiated On: 03/02/2019 11:36 AM PROVATION 03/02/2019 11:3 6 AM EDT Ramiro Peralta MD GENSUESTEBAN ORDERS NO P OSTOP PAIN QUESTION PROVATION documented in this encounter Visit Diagnoses Not on filedocumented in this encounter Administered Medications Inactive Administered Medications - up to 3 most recent administrations Medication Order MAR Action Action Date Dose Rate Site lactated ringers infusion 100 mL/hr, Intravenous, CONTINUOUS, Starting on Elvira 03/02/19 at 1100, Until Elvira 03/02/19 at 1646, Day of Surgery (Day of Procedure) New Bag 03/02/2019 11:00 AM EDT 100 mL/hr 100 mL/hr documented in this encounter Active and Recently Administered Medications Times are shown in EDT. Continuous Medication Order 02/28/2019 03/01/2019 03/02/2019 lactated ringers infusion 100 mL/hr, Intravenous, CONTINUOUS, Starting on Elvira 03/02/19 at 1100, Until Elvira 03/02/19 at 1646, Day of Surgery (Day of Procedure) 1100 (New Bag - Prov ider: Nancy Veliz RN) documented in this encounter Additional Health Concerns Infection Onset Date Last Indicated Resolved Time Rule Out Tuberculosis 03/02/2019 03/02/20192018 7:56 PM EDT documented as of this encounter Care Teams Reinforcer Relationship Specialty Start Date End Date Diane Law APRN [address] [place] [address] PCP - General Family Medicine 03/02/19 documented as of this encounter
--- OUTSIDE RECORDS SUMMARY | 2024-04-26 16:06 | XMS_ITS | Encounter Summary ---
Author Organization [facility] Address [address] [place] [address] Care Team Providers Care Pole Frame Construction Worker Name Role Phone Unknown, Provider Primary Care Provider [phone] Encounter Details Date Type Department Care Team (Latest Contact Info) Description 11/12/2015 12:24 EDT - 11/12/2015 23:59 EDT Hospital Encounter [facility] [address] [place] [address] Unknown, ProviderMD Discharge Disposition: Home or Self Care Social History Tobacco Use Types Packs/Day Years Used Date Smoking Tobacco: Never Assessed Sex and Gender Information Value Date Recorded Sex Assigned at Not on file Gender Identity Not on file Sexual Orientation Not on file documented as of this encounter Discharge Disposition Disposition Code Departure Means Destination Home or Self [facility] documented in this encounter Plan of Treatment Upcoming Encounters Date Type Department Care Team (Late st Contact Info) Description 05/18/2024 15:30 EST Office Visit [facility] Pulmonology [address] [facility], [place] [address] Leif Lovelace MD [address] [facility] [place] [address] documented as of this encounter Visit Diagnoses Not on filedocumented in this encounter Care Teams Pole Frame Construction Worker Relationship Specialty Start Date End Date Unknown, ProviderMD PCP - General 07/18/14 01/19/16 documented as of this encounter
--- OUTSIDE RECORDS SUMMARY | 2024-04-26 16:06 | XMS_ITS | Encounter Summary ---
[place] [address] Care Team Providers Care Molded Goods Inspector Trimmer Name Role Phone Reggie Peralta MD Primary Care Provider [phone] Encounter Details Date Type Department Care Team (Late st Contact Info) Description 02/16/2019 [place] [phone] Serene Pratt Social History Tobacco Use Types Packs/Day Years Used Date Smoking Tobacco: Never Smokeless Tobacco: Never Alcohol Use Standard Drinks/Week Comments No 0 (1 standard drink = 0.6 oz pur e alcohol) Sex and Gender Information Value Date Recorded Sex Assigned at Not on file Gender Identity Not on file Sexual Orientation Not on file documented as of this encounter Plan of Treatment Not on file documented as of this encounter Visit Diagnoses Not on filedocumented in this encounter Care Teams Molded Goods Inspector Trimmer Relationship Specialty Start Date End Date Reggie Peralta MD [address] [place] [address] PCP - General Family Medicine 10/27/18 03/01/19 documented as of this encounter
--- OUTSIDE RECORDS SUMMARY | 2024-04-26 16:06 | XMS_ITS | Encounter Summary ---
Author Organization [facility] [place] [address] Care Team Providers Care Ditching Machine Engineer Name Role Phone Reggie Peralta MD Primary Care Provider [phone] Reason for Visit * Reason Comments Follow-up Encounter Details Date Type Department Care Team (Late st Contact Info) Description 02/06/2019 9:00 AM EDT Office [place] [address] Kingsley Velasco MD [facility] [place] [address] Cough variant asthma; Sarcoidosis Social History Tobacco Use Types Packs/Day Years [...] Reading Time Taken Comments Blood Pressure 122/64 02/06/2019 9:22 AM EDT Pulse 63 02/06/2019 9:22 AM EDT Temperature - - Respiratory Rate 18 02/06/2019 9:22 AM EDT Oxygen Saturation 98% 02/06/2019 9:22 AM EDT Inhaled Oxygen Concentration - - Weight 72.1 kg (159 lb) 02/06/2019 9:22 AM EDT Height 154.9 cm (5' 1) 02/06/2019 9:22 AM EDT Body Mass Index 30.04 02/06/2019 9:22 AM EDT documented in this encounter Progress Notes * Kingsley Velasco MD - 02/06/2019 9:00 AM EDT Images from the original note were not included. SECTION OF PULMONARY AND CRITICAL CARE?? Pulmonary and Critical Care Medicine [place] [id number] Outpatient follow-up Follow-up 58 y.o. female with a history of iridocyclitis/anterior uveitis who was recently noted tohave symmetric hilar and mediastinal adenopathy on chest x- ray and an elevated ANAIS level (76). She also has a history of mild asthma, and a morning cough, frequently productive of clear/white sputum.She rarely has cough any other time of day, and denies wheezing. She complains of mild fatigue, but has no arthritis or skin rash. She also has mild diet-controlled diabetes, and though she states her weight tends to go up and down, her appetite is generally not very good. She has never smoked. PAST MEDICAL HISTORY: Patient Active Problem List Diagnosis Code ??? Uveitis H20.9 ??? Glaucoma H40.9 ??? Sarcoidosis D86.9 ??? Mediastinal lymphadenopathy R59.0 ??? Hyperlipidemia E78.5 ??? Irritable bowel syndrome K58.9 ??? Gastroesophageal reflux K21.9 No past surgical history on file. MEDICATIONS: Current Outpatient Medications Medication Sig Dispense Refill ??? omeprazole (PRILOSEC) 40 mg Capsule, Delayed Release(E.C.) Take 40 mg by mouth Daily. ??? ranitidine (ZANTAC) 150 mg Capsule Take 150 mg by mouth Twice daily as needed. ??? beclomethasone (QVAR) 80 mcg/actuation Aerosol Inhale 2 puffs into the lungs 2 times daily. Indications: Controller Medication for Asthma (Patient not taking: Reported on 02/06/2019) 1 Inhaler 11 No current facility-administered medications for this visit. ALLERGIES: Patient has no known allergies. PHYSICAL EXAM Last value Range last 24 hrs Temperature Temp: -- Heart Rate Heart Rate: 63 Heart Rate: -- Blood Pressure BP: 122/64 BP: -- Respiratory Rate Resp: 18 Resp: -- SpO2 SpO2: 98 % SpO2: -- WDWN 58 y.o. female in NAD. , HEENT-NC/AT; unremarkable Neck-supple without masses or, nodes Chest- clear bilaterally Heart-Normal rate and rhythm, without murmers, gallops, or rubs. Abdomen-benign without organomegaly or tenderness Extremities-no cyanosis, clubbing, or edema Skin-no rashes or lesions Musculoskeletal-no joint swelling, tenderness, redness or deformities Neurologic-Nonfocal, without weakness or sensory deficits Lymphatics-unremarkable I have personally reviewed the high-resolution CT of the chest, and my interpretation is as follows: Scattered tiny noncalcified nodules throughout her lung parenchyma, with significant hilar and mediastinal adenopathy, also without calcification. She also has a moderate sized hiatal hernia. IMPRESSION: In summary, this is a 58 y.o. female with hilar adenopathy, which has been present since at least 2014, anterior uveitis, an elevated ANAIS level, and has a cough which may or may not be related to what otherwise would be a classic presentation of sarcoidosis. She has a hiatal hernia, as well as symptoms of gastroesophageal reflux (she apparently had some form of wrap about 15 years ago) and I had suggested elevating the head of her bed. I started her on Qvar but she stated that it caused her blood pressure to go up and she became lightheaded on it so she stopped it. She states that her energy level is a bit better than when I last saw her but that it is still not what she thinks it should be. I discussed various options with her, as well as the choice of a clinical diagnosis of sarcoid or confirming it histologically, and her feeling is that confirmation would be preferable. I will refer her to one of my colleagues for bronchoscopic biopsy/BAL, and we will see her back after this. Greater than 20 min of this 25 minute visit was spent in face to face discussion with the patient regarding the nature of sarcoidosis, as well as diagnostic considerations. documented in this encounter Plan of Treatment Not on file documented as of this encounter Visit Diagnoses Diagnosis Cough variant asthma Sarcoidosis documented in this encounter Care Teams Ditching Machine Engineer Relationship Specialty Start Date End Date Reggie Peralta MD [address] [place] [address] PCP - General Family Medicine 10/27/18 03/01/19 documented as of this encounter
--- OUTSIDE RECORDS SUMMARY | 2024-04-26 16:06 | XMS_ITS | Encounter Summary ---
[place] [address] Care Team Providers Care Job Analyst Name Role Phone Reggie Peralta MD Primary Care Provider [phone] Encounter Details Date Type Department Care Team (Latest Contact Info) Description 10/27/2018 8:58 AM EDT - 10/27/2018 11:59 PM EDT Hospital Encounter [place] [address] Sarcoidosis Discharge Disposition: Home Social History Tobacco Use Types Packs/Day Years Used Date Smoking Tobacco: Never Smokeless Tobacco: Never Alcohol Use Standard Drinks/Week Comments No 0 (1 standard drink = 0.6 oz pur e alcohol) Sex and Gender Information Value Date Recorded Sex Assigned at Not on file Gender Identity Not on file Sexual Orientation Not on file documented as of this encounter Medications at [...] 11 10/27/2018 documented as of this encounter Procedure Notes * Priyank Lerma MD - 10/27/2018 5:18 PM EDTAssociated Order(s): PULMONARY FUNCTION TEST Normal spirometry Diffusing capacity is normal Pulmonary Section [facility] documented in this encounter Plan of Treatment Not on file documented as of this encounter Procedures Procedure Name Priority Date/Time Associated Diagnosis Comments COMMON PULMONARY FUNCTION TEST Routine 10/27/2018 5:18 PM EDT Sarcoidosis documented in this encounter Results * Pulmonary Function Testing (10/27/2018 5:18 PM EDT) Narrative Priyank Lerma MD - 10/27/2018 5:18 PM EDT Priyank Lerma MD ? 10/27/2018 ??5:18 PM Normal spirometry Diffusing capacity is normal Pulmonary Section [facility] Kingsley Herring MD PFT ORDERABLES documented in this encounter Visit Diagnoses Diagnosis Sarcoidosis documented in this encounter Care Teams Job Analyst Relationship Specialty Start Date End Date Reggie Peralta MD [address] [place] [address] PCP - General Family Medicine 10/27/18 03/01/19 documented as of this encounter
--- OUTSIDE RECORDS SUMMARY | 2024-04-26 16:06 | XMS_ITS | Encounter Summary ---
[place] [address] Care Team Providers Care Motor Polarizer Name Role Phone Reggie Peralta MD Primary Care Provider [phone] Reason for Referral * Diagnostic Test (Routine) - Closed Specialty Diagnoses / Procedures Referred By Casimiro lima Referred To Contact Radiology Diagnoses Sarcoidosis Procedures CT Chest wo Contrast (Generic) Kingsley Velasco MD [facility] [place] [address] [facility] [place] [address] Referral ID Status Reason Start Date Expiration Date V isits Requested Visits Authorized [id number] Closed Specialty Service Requested 02/02/2019 03/19/2019 1 1 Reason for Visit * Consultation (Routine) - Specialty Diagnoses / Procedures Referred By Casimiro lima Referred To Contact Pulmonology Diagnoses Sarcoidosis Sarcoidosis Diane Law APRN [address] [place] [address] [facility] Pulmonology [address] [place] [address] Referral ID Status Reason Start Date Expiration Date V isits Requested Visits Authorized [id number] Consult, Test & Treat PCP Updated and/or Approved 09/14/2018 03/17/2019 6 6 Encounter Details Date Type Department Care Team (Late st Contact Info) Description 10/27/2018 10:00 AM EDT Office Visit [place] [address] Kingsley Velasco MD [facility] [place] [address] Cough variant asthma (Primary Dx); Sarcoidosis Social History Tobacco Use Types Packs/Day [...] Sign Reading Time Taken Comments Blood Pressure 116/71 10/27/2018 9:53 AM EDT Pulse 64 10/27/2018 9:53 AM EDT Temperature - - Respiratory Rate - - Oxygen Saturation 97% 10/27/2018 9:53 AM EDT Inhaled Oxygen Concentration - - Weight 71.7 kg (158 lb) 10/27/2018 9:53 AM EDT Height 153 cm (5' 0.24) 10/27/2018 9:53 AM EDT Body Mass Index 30.62 10/27/2018 9:53 AM EDT documented in this encounter Progress Notes * Kingsley Velasco MD - 10/27/2018 10:00 AM EDT Images from the original note were not included. SECTION OF PULMONARY AND CRITICAL CARE?? Pulmonary [place] [address] Outpatient New Consultation Consulted by Reggie Peralta MD to evaluate this patient for presumptive sarcoidosis. I have personally interviewed and examined the patient on 10/30/2018, and reviewed the patient's studies and laboratory data. HPI: In brief, Amy Alexander is a 58 y.o. female with a history of iridocyclitis/anterior uveitis who was recently noted to have symmetric hilar and mediastinal adenopathy on chest x-ray and an elevated ANAIS level (76). She also has a history of mild asthma, though she has not been symptomatic recently. She has an albuterol inhaler which she rarely uses, but she does endorse morning cough, frequently productive of clear/white sputum. She rarely has cough any other time of day, and denies wheezing. She has no constitutional symptoms with the exception of very mild fatigue. She has no arthritis or skin rash. She has never smoked. She has a history of chronic diarrhea, GI workup of which has been negative. She also has mild diet-controlled diabetes, and though she states her weight tends to goup and down, her appetite is not very good. Otherwise no constitutional symptoms, joint pains skin rash. She has never smoked. PAST MEDICAL HISTORY: [...] Controller Medication for Asthma 1 Inhaler 11 No current facility-administered medications for this visit. ALLERGIES: Patient has no known allergies. FAMILY HISTORY: Family History Problem Relation Age of Onset ??? Amblyopia Neg Hx ??? Cataracts Neg Hx ??? Macular Degeneration Neg Hx ??? Retinal Detachment Neg Hx ??? Strabismus Neg Hx SOCIAL HISTORY: Social History Socioeconomic History ??? Marital status: Spouse name: Not on file ??? Number of children: Not on file ??? Years of education: Not on file ??? Highest education level: Not on file Occupational History ??? Not on file Social Needs ??? Financial resource strain: Not on file ??? Food insecurity: Worry: Not on file Inability: Not on file ??? Transportation needs: Medical: Not on file Non-medical: Not on file Tobacco Use ??? Smoking status: Never Smoker ??? Smokeless tobacco: Never Used Substance and Sexual Activity ??? Alcohol use: No ??? Drug use: Not on file ??? Sexual activity: Not on file Lifestyle ??? Physical activity: Days per week: Not on file Minutes per session: Not on file ??? Stress: Not on file Relationships ??? Social connections: Talks on phone: Not on file Gets together: Not on file Attends rastafarian service: Not on file Active member of club or organization: Not on file Attends meetings of clubs or organizations: Not on file Relationship status: Not on file ??? Intimate partner violence: Fear of current or ex partner: Not on file Emotionally abused: Not on file Physically abused: Not on file Forced sexual activity: Not on file Other Topics Concern ??? Not on file Social History Narrative ??? Not on file Review of Systems: GENERAL HEENT CV PULM All negative All negative x All negative All negative x Weight loss Headache Angina x Non-productive cough x Weight gain x Vision change Palpitations x Productive cough Fevers Sinus congestion Presyncope Wheezing Chills Rhinorrhea Syncope Hemoptysis Diaphoresis Epistaxis LE edema Pleuritic pain Poor sleep Post-nasal drip Claudication Orthopnea x Fatigue Throat clearing Paroxysmal dyspnea x Anorexia Dry eyes/mouth Trepopnea Hoarseness MSK RENAL ENDO GI/NUTRITION All negative x All negative x All negative All negative x Arthralgias Polyuria Heat intolerance x GERD Myalgias Oliguria Cold intolerance Dysphagia Deformity Hematuria Polydipsia Odynophagia Stiffness Flank pain Polyphagia Abdominal discomfort Wasting Dysuria Cushingoid Constipation x Diarrhea Steatorrhea LYMPH SKIN NEURO PSYCH x All negative x All negative x All negative x All negative Swollen nodes Rash Seizures Depressed affect Tender nodes Ulcers Tremors Occupational stress Diffuse nodes Purpura Spasticity Troubled relationship(s) Local nodes Pigmented lesion Focal weakness Insomnia Telangiectasias Diplopia Anxiety Angiomata Paresthesias Absenteeism Tanned skin PHYSICAL EXAM Last value Range last 24 hrs Temperature Temp: -- Heart Rate Heart Rate: 64 Heart Rate: -- Blood Pressure BP: 116/71 BP: -- Respiratory Rate Resp: -- SpO2 SpO2: 97 % SpO2: -- WDWN 58 y.o. female in NAD. , HEENT-NC/AT; unremarkable Neck-supple without masses or, nodes Chest- clear bilaterally Heart-Normal rate and rhythm, without murmers, gallops, or rubs. Abdomen-benign without organomegaly or tenderness Extremities-no cyanosis, clubbing, or edema Skin-no rashes or lesions Musculoskeletal-no joint swelling, tenderness, redness or deformities Neurologic-Nonfocal, without weakness or sensory deficits Lymphatics-unremarkable I have personally reviewed the PFTs, and my interpretation is as follows: Normal spirometry and diffusing capacity. Resting room air oxygen saturation 98% dropping to 96% after walking 600 feet. Normal pulmonary function. IMPRESSION: In summary, this is a 58 y.o. female with hilar adenopathy, which has been present since at least 2014, anterior uveitis, an elevated ANAIS level, and now has a cough which may or may not be related to what otherwise would be a classic presentation of sarcoidosis. The chest xray was performed at another facility, though the report is quite clear (as is the reference to the prior film). The radiologic opinion is that the nodes may be somewhat larger than in 2015, and she clearly has ocular symptoms (and elevated ANAIS) to suggest that the disease is manifesting clinically now, though judgement should be reserved on whether the diagnosis requires histologic confirmation. I discussed the reasons why one might want confirmation (essentially only to exclude other more sinister conditions), but unless something emerges that is atypical or more worrisome, there would be no pressing need to perform an invasive procedure without another entity on the differential. I discussed the potential value of getting higher resolution imaging, so I suggested that she have a non-contrast HRCT performed in the near future. I discussed an empiric trial of an inhaled corticosteroid and she agrees, so I prescribed belcomethasone (QVAR) 2 puffs BID (the only one allowed by her plan). The possibility exists that her fatigue may respond to 5- 10 mg of prednisone, but since she is overweight, prediabetic, and has glaucoma, she is not an ideal candidate. I discussed slight elevation of the head ofher bed (GERD), and I will see her back in about 4-6 weeks to evaluate her response to the QVAR (and will get the CT). Greater than 50 min of this 60 minute visit was spent in face to face discussion with the patient regarding the nature and complexity of the sarcoidosis, as well as diagnostic and therapeutic considerations.. documented in this encounter Plan of Treatment Not on file documented as of this encounter Results * CT Chest wo Contrast (Generic) (02/06/2019 7:31 AM EDT) Anatomical Region Laterality Modality Chest Computed Tomogra phy Impressions 02/06/2019 10:03 AM EDT Dozens of tiny right-sided perifissural nodular opacities as well as bilateral hilar fullness/probable adenopathy and mediastinal lymphadenopathy. Findings compatible with sarcoidosis in the correct clinical context, such as elevated ANAIS and iridocyclitis/uveitis. Preliminary report signed by: Matias Chan at 02/06/2019 9:46 AM I have personally reviewed the image(s) and the residents interpretation and agree with the findings, Munira Edwards at 02/06/2019 10:03 AM Thank you for letting us participate in the care of this patient. For questions regarding this report, please contact the number below. ? Electronically signed by: Munira Edwards [facility] ([phone]), at 02/06/2019 10:03 AM Narrative 02/06/2019 10:03 AM EDT EXAMINATION: CT CHEST WO CONTRAST (GENERIC) CLINICAL HISTORY: mediatinal adenopathy TECHNIQUE: 3.75mm thick axial contiguous sections were obtained through the chest via helical acquisition without intravenous contrast administration. Thin-section reconstructions as well as coronal and sagittal reformatted images were generated. COMPARISON: None FINDINGS: Pulmonary parenchyma: Dozens of sub-5 mm nodular opacities starting the major and minor fissures throughout the right lung (for example, series 5 images 165, 199, 204). Sub-3 mm calcified granuloma within the right middle lobe (series 5 image 249). The left lung is clear. No focal airspace consolidations. Airways: Airways are patent. Pleura: No pleural effusion. Lymph nodes:Bilateral hilar fullness measuring up to 1.5 cm on the right and 1 cm on the left, although lack of IV contrast limits detailed evaluation of the hilar structures. Mildly enlarged AP window lymph nodes measuring up to 1 cm in short axis. 1.5 cm and 1.3 cm paratracheal lymph nodes (series 5 image 123, 144). Prominent but nonpathologically enlarged anterior mediastinal lymph nodes. Heart, pericardium, and great vessels: No significant findings. Other mediastinal structures: No significant findings. Lower neck: No significant findings. Upper abdomen: No significant findings. Body wall soft tissues: No significant findings. Skeletal structures: No significant findings. Procedure Note Munira Edwards MD - 02/06/2019 EXAMINATION: CT CHEST WO CONTRAST (GENERIC) CLINICAL HISTORY: mediatinal adenopathy TECHNIQUE: 3.75mm thick axial contiguous sections were obtained throughthe chest via helical acquisition without intravenous contrastadministration. Thin-section reconstructions as well as coronal and sagittal reformattedimages were generated. COMPARISON: None FINDINGS: Pulmonary parenchyma: Dozens of sub-5 mm nodular opacities starting themajor and minor fissures throughout the right lung (for example, series 5 , 199, 204). Sub-3 mm calcified granuloma within the right middle lobe(series 5 image 249). The left lung is clear. No focal airspace consolidations. Airways: Airways are patent. Pleura: No pleural effusion. Lymph nodes:Bilateral hilar fullness measuring up to 1.5 cm on the rightand 1 cm on the left, although lack of IV contrast limits detailed evaluation ofthe hilar structures. Mildly enlarged AP window lymph nodes measuring up to 1cm in short axis. 1.5 cm and 1.3 cm paratracheal lymph nodes (series 5 [id number], 144). Prominent but nonpathologically enlarged anterior mediastinal lymphnodes. Heart, pericardium, and great vessels: No significant findings. Other mediastinal structures: No significant findings. Lower neck: No significant findings. Upper abdomen: No significant findings. Body wall soft tissues: No significant findings. Skeletal structures: No significant findings. IMPRESSION Dozens of tiny right-sided perifissural nodular opacities as well asbilateral hilar fullness/probable adenopathy and mediastinal lymphadenopathy.Findings compatible with sarcoidosis in the correct clinical context, such aselevated ANAIS and iridocyclitis/uveitis. Preliminary report signed by: Matias Chan at 02/06/2019 9:46 AM I have personally reviewed the image(s) and the residents interpretationand agree with the findings, Munira Edwards at 02/06/2019 10:03 AM Thank you for letting us participate in the care of this patient. Forquestions regarding this report, please contact the number below. Kingsley Herring MD IMG CT ORDERABLES documented in this encounter Visit Diagnoses Diagnosis Cough variant asthma- Primary Sarcoidosis Sarcoidosis documented in this encounter Care Teams Motor Polarizer Relationship Specialty Start Date End Date Reggie Peralta MD [address] [place] [address] PCP - General Family Medicine 10/27/18 03/01/19 documented as of this encounter
--- OUTSIDE RECORDS SUMMARY | 2024-04-26 16:06 | XMS_ITS | Encounter Summary ---
Author Organization [facility] [place] [address] Care Team Providers Care Rotary Furnace Tender Name Role Phone Unknown Primary Care Provider Unavailabl e Encounter Details Date Type Department Care Team (Late st Contact Info) Description 09/15/2018 Orders [place] [address] Kingsley Velasco MD [facility] [place] [address] Sarcoidosis Social History Tobacco Use Types Packs/Day Years Used Date Smoking Tobacco: Never Alcohol Use Standard Drinks/Week Comments No 0 (1 standard drink = 0.6 oz pur e alcohol) Sex and Gender Information Value Date Recorded Sex Assigned at Not on file Gender Identity Not on file Sexual Orientation Not on file documented as of this encounter Plan of Treatment Not on file documented as of this encounter Results * Pulmonary Function Testing (10/27/2018 5:18 PM EDT) Narrative Priyank Lerma MD - 10/27/2018 5:18 PM EDT Priyank Lerma MD ? 10/27/2018 ??5:18 PM Normal spirometry Diffusing capacity is normal Pulmonary Section [facility] Kingsley Herring MD PFT ORDERABLES documented in this encounter Visit Diagnoses Diagnosis Sarcoidosis Sarcoidosis documented in this encounter Care Teams Rotary Furnace Tender Relationship Specialty Start Date End Date Unknown None PCP - General 06/22/18 10/26/18 documented as of this encounter
--- OUTSIDE RECORDS SUMMARY | 2024-04-26 16:06 | XMS_ITS | Encounter Summary ---
[place] [address] Care Team Providers Care Sap Analyst Name Role Phone Reggie Peralta MD Primary Care Provider [phone] Encounter Details Date Type Department Care Team (Late st Contact Info) Description 02/16/2019 Telephone [place] [address] Serene Pratt Social History Tobacco Use Types [...] encounter Miscellaneous Notes * Telephone Encounter - Serene Ely - 02/16/2019 4:12 PM EDT Spoke with patient EBUS Bronch scheduled 03/02. 9:30am check in at Department 4T for 10:30am Procedure. Gave patient prep:NPO 8 hours prior, must have tanker truck driver. Stop taking blood thinners 5 daysprior to procedure. Advised RN will call the day prior between 11am-6pm to give additional prep/info and to answer any questions. Mailed letter. RN/MD updated. documented in this encounter Plan of Treatment Not on file documented as of this encounter Visit Diagnoses Not on filedocumented in this encounter Care Teams Sap Analyst Relationship Specialty Start Date End Date Reggie Peralta MD [address] [place] [address] PCP - General Family Medicine 10/27/18 03/01/19 documented as of this encounter
--- OUTSIDE RECORDS SUMMARY | 2024-04-26 16:06 | XMS_ITS | Encounter Summary ---
Author Organization [facility] Address [address] [place] [address] Care Team Providers Care Bell Tier Name Role Phone Carisa Ayers NP Primary Care Provider Unknown, Provider Primary Care Provider [phone] Reggie Peralta MD Primary Care Provide r Encounter Details Date Type Department Care Team (Late Contact Info) Description 07/13/[address] [facility] Radiology Results [address] [place] [address] Ian Johnson MD [address] [place] [id number] Social History Tobacco Use Types Packs/Day Years Used Date Smoking Tobacco: Never Assessed Sex and Gender Information Value Date Recorded Sex Assigned at Not on file Gender Identity Not on file Sexual Orientation Not on file documented as of this encounter Plan of Treatment Upcoming Encounters Date Type Department Care Team (Late Contact Info) Description 05/18/2024 15:[address] [facility] Pulmonology [address] [facility], [place], [place] [address] Leif Lovelace MD [address] [facility], [facility] [address] [place] [address] documented as of this encounter Procedures Procedure Name Priority Date/Time Associated Diagnosis Comments XR CHEST 2 VIEWS 07/13/2014 9:11 EST documented in this encounter Results * XR CHEST 2 VIEWS (07/13/2014 9:11 EST) Anatomical Region Laterality Modality Other 07/13/2014 9:11 EST Narrative 07/13/2014 9:16 EST ? EXAM: RADIOLOGY/CHEST (PA ?? LAT) ?EX. D/ (0846) ? CLINICAL INFORMATION: ? IRITIS ? CHEST (PA ?? LAT) ??07/13/2014 8:37 AM ? Signs and Symptoms/Comments: ??Iritis ? Comparisons: No ? Findings: ? PA and lateral views of the chest were performed. The lungs are ? clear. No pneumothorax or pleural effusion is present. The ? cardiomediastinal silhouette and pulmonary vascularity are normal. ? The osseous structures are unremarkable. ? IMPRESSION: ? Normal chest radiograph. ? REPORT SIGNED IN OTHER VENDOR SYSTEM 07/13/2014 ?Reported By: Tanner Lerma MD ? CC: ? Transcribed Date/Time: 07/13/2014 (0916) ? Assembler Tractor: ? Printed Date/Time: 12/12/2018 (1155) ? PAGE 1 ? Signed Report ? Procedure Note Tanner Lerma MD - 11/05/2019 EXAM: RADIOLOGY/CHEST (PA LAT) EX. D/ (0846) CLINICAL INFORMATION: IRITIS CHEST (PA LAT) 07/13/2014 8:37 AM Signs and Symptoms/Comments: Iritis Comparisons: No Findings: PA and lateral views of the chest were performed. The lungs are clear. No pneumothorax or pleural effusion is present. The cardiomediastinal silhouette and pulmonary vascularity are normal. The osseous structures are unremarkable. IMPRESSION: Normal chest radiograph. REPORT SIGNED IN OTHER VENDOR SYSTEM 07/13/2014 Reported By: Tanner Lerma MD CC: Transcribed Date/Time: 07/13/2014 (0916) Assembler Tractor: Printed Date/Time: 12/12/2018 (4660) PAGE 1 Signed Report Ian Johnson MD IMG DIAGNOSTIC IMAGI NG ORDERABLES documented in this encounter Visit Diagnoses Not on filedocumented in this encounter Care Teams Bell Tier Relationship Specialty Start Date End Date Carisa Ayers NP [address] [place] [address] PCP - General 07/18/10 07/17/14 Unknown, Provider, [address] [place] [address] PCP - General 07/18/14 01/19/16 Reggie Peralta MD [address] [facility] [address] [place] [address] PCP - General 01/20/16 01/20/21 documented as of this encounter
--- OUTSIDE RECORDS SUMMARY | 2024-04-26 16:06 | XMS_ITS | Encounter Summary ---
Author Organization [facility] Address [address] [place] [address] Care Team Providers Care Contract Administrator Name Role Phone Carisa Ayers ANCILLARY SERVICES MANAGER THERAPY Primary Care Provider Encounter Details Date Type Department Care Team (Latest Contact Info) Description 07/13/2014 12:45 EST - 07/13/2014 23:59 EST Hospital Encounter [address] [address] Unknown, MD Regino Discharge Disposition: Home or Self Care Social History Tobacco Use Types Packs/Day Years Used Date Smoking Tobacco: Never Assessed Sex and Gender Information Value Date Recorded Sex Assigned at Not on file Gender Identity Not on file Sexual Orientation Not on file documented as of this encounter Discharge Disposition Disposition Code Departure Means Destination Home or Self Fpc documented in this encounter Plan of Treatment Upcoming Encounters Date Type Department Care Team (Late st Contact Info) Description 05/18/2024 15:30 EST Office Visit [facility] Pulmonology [address] [facility], [place] [address] Leif Lovelace MD [address] [facility], [facility] [address] [place] [address] documented as of this encounter Visit Diagnoses Not on filedocumented in this encounter Care Teams Contract Administrator Relationship Specialty Start Date End Date Carisa Ayers NP [address] [place] [id number] PCP - General 07/18/10 07/17/14 documented as of this encounter
--- OUTSIDE RECORDS SUMMARY | 2024-04-26 16:06 | XMS_ITS | Encounter Summary ---
[place] [address] Care Team Providers Care Director Of Analytics Name Role Phone Diane Law APRN Primary Care Provider [phone] Reason for Visit * Reason Onset Date Comments Results 03/10/2019 Biopsy results Encounter Details Date Type Department Care Team (Late Contact Info) Description 03/10/2019 [place] [id number] Addison Wilkerson RN Results (Biopsy results) Social History Tobacco Use Types Packs/Day Years [...] encounter Miscellaneous Notes * Telephone Encounter - Addison Wilkerson RN - 03/10/2019 11:09 AM EDT Rec'd call from patient, asking to get biopsy results. documented in this encounter Plan of Treatment Not on file documented as of this encounter Visit Diagnoses Not on filedocumented in this encounter Care Teams Director Of Analytics Relationship Specialty Start Date End Date Diane Law APRN [address] [place], [place] [id number] PCP - General Family Medicine 03/02/19 documented as of this encounter
--- OUTSIDE RECORDS SUMMARY | 2024-04-26 16:06 | XMS_ITS | Encounter Summary ---
Author Organization [facility] [place] [address] Care Team Providers Care Replanting Machine Operator Name Role Phone Diane Law APRN Primary Care Provider [phone] Reason for Visit * Auth/Cert Specialty Diagnoses / Procedures Referred By Contac t Referred To Contact Diagnoses GA/Sarcoid/Ebus Bronchoscopy w/ Devorah Procedures [facility] DX/TX INTERVENTION PERPH LES BRONCH, W EBUS DURING INTERVENTION FOR PERIPH LESION (WRVU 1.4) Referral ID Status Reason Start Date Expiration Date Visits Re quested Visits Authorized [id number] 1 1 Encounter Details Date Type Department Care Team (Late st Contact Info) Description 03/02/2019 10:30 AM EDT - 03/02/2019 12:00 PM EDT Surgery Gastroenterology at [facility] [place] [address] Kevin Fairchild MD [facility] [place] [address] BRONCH, W EBUS DURING INTERVENTION FOR PERIPH LESION (WRVU 1.4) Social History Tobacco Use Types Packs/Day Years [...] Sign Reading Time Taken Comments Blood Pressure 131/78 03/02/2019 10:43 AM EDT Pulse 66 03/02/2019 10:43 AM EDT Temperature 36.5 ??C (97.7 ??F) 03/02/2019 10:43 AM E DT Respiratory Rate 20 03/02/2019 10:43 AM EDT Oxygen Saturation 98% 03/02/2019 10:43 AM EDT Inhaled Oxygen Concentration - - [...] Contact Numbers Wednesday - Wednesday Pulmonary Clinic [phone]-5p Same Day Endoscopy [phone]-8p Otherwise call [facility] and ask to speak to the Pulmonary Doctor operation agent [phone] Discharge instructions reviewed with patient who expresses [...] your doctor if you can take an bncy-syp-ihvgaff medicine. ? If you think your pain [...] more? Visit our health information library at [email or web address]. You can also view health information on [employer], your personal patient account. Log in or sign uptoday. Enter S288 in the search box to learn more about Bronchoscopy: What to Expect at Home. Current as of: March 16, 2018 Content Version: 12.1 ?? [phone] [employer]. Care instructions adapted under license by [facility]. If you have questions about a medical condition or this instruction, always ask your healthcare professional. [employer] disclaims any warranty or liability for your [...] Procedure Name Priority Date/Time Associated Diagnosis Comments NON-CREDIT OR LOANS OFFICER FINAL REPORT Routine 03/02/2019 2:05 PM EDT NON-CREDIT OR LOANS OFFICER FINAL REPORT Routine 03/02/2019 2:02 PM EDT NON-CREDIT OR LOANS OFFICER FINAL REPORT Routine 03/02/2019 1:58 PM EDT [...] 12:15 PM EDT Bronchoscopy, Diagnostic W Lavage (87588) 03/02/2019 11:49 AM EDT Sarcoid [facility] Ebus Dx/Tx Intervention Perph Les (08882) 03/02/2019 11:49 AM EDT Sarcoid BRONCHOSCOPY Routine 03/02/2019 11:36 AM EDT documented in this encounter Results * Non-Billet Heater Final Report (03/02/2019 2:05 PM EDT) Diagnosis Discussion [id number] ? Location: 4; 07; A The signing pathologist has (i) examined the relevant preparation(s) for the specimen(s) and (ii) rendered or confirmed the diagnosis(es). . ? Non-Billet Heater Final DIAGNOSIS Negative for Malignancy Electronically signed by: ??Trinidad Patterson MD Verified: ??03/07/2019 ?Pathologist Performed at: ??-[facility] Dept. of Pathology, [place], [place] DISCUSSION Lymph node, station 7 (EBUS-guided [...] for final interpretation. 03/07/2019 11:15 AM EDT [facility] LYMPH NODE SPECIMEN / Unknown 03/02/2019 2:05 PM EDT 03/02/2019 2:05 PM EDT Kevin Fairchild MD PATHOLOGY/CYTOLOGY ORDERABLES [facility] [place] [address] * Non-Billet Heater Final Report (03/02/2019 2:02 PM EDT) Diagnosis Discussion [id number] ? Location: 4T; EA07; A The signing pathologist has (i) examined the relevant preparation(s) for the specimen(s) and (ii) rendered or confirmed the diagnosis(es). . ? Non-Billet Heater Final DIAGNOSIS Negative for Malignancy Electronically signed by: ??Leonardo LYON, Trinidad Verified: ??03/07/2019 ?Pathologist Performed at: ??-[facility] Dept. of Pathology, [place], [place] DISCUSSION Lymph node, 4L (EBUS-guided FNA): Non-caseating granulomas are present. AFB and GMS stains are negative for mycobacteria and fungal organisms respectively. Lymphoid cells, predominantly small lymphocytes, are present; compatible with lymph node sampling. Izard respiratory epithelial cells with cilia are seen. [...] for final interpretation. 03/07/2019 11:14 AM EDT [facility] LYMPH NODE SPECIMEN / Unknown 03/02/2019 2:02 PM EDT 03/02/2019 2:02 PM EDT Kevin Fairchild MD PATHOLOGY/CYTOLOGY ORDERABLES [facility] [place] [address] * Non-Billet Heater Final Report (03/02/2019 1:58 PM EDT) Diagnosis Discussion [id number] ? Location: 4T; EA07; A The signing pathologist has (i) examined the relevant preparation(s) for the specimen(s) and (ii) rendered or confirmed the diagnosis(es). . ? Non-Billet Heater Final DIAGNOSIS Negative for Malignancy Electronically signed by: ??Trinidad Patterson MD Verified: ??03/07/2019 ?Pathologist Performed at: ??-[facility] Dept. of Pathology, [place], [place] DISCUSSION Lymph node, 4R (EBUS-guided FNA): [...] for final interpretation. 03/07/2019 11:11 AM EDT [facility] LYMPH NODE SPECIMEN / Unknown 03/02/2019 1:58 PM EDT 03/02/2019 1:58 PM EDT Kevin Fairchild MD PATHOLOGY/CYTOLOGY ORDERABLES [facility] [place] [place] [address] * Flow Cytometry Report (03/02/2019 12:16 PM EDT) Flow Cytometry Report [id number] ? Location: 4T; EA07; A The signing [...] Urbina MD Verified: ??03/03/2019 ?Hematopathologist Performed at: ??-[facility] Dept. of Pathology, [place], [place] DISCUSSION Blasts based on CD45 expression and orthogonal light scatter, are not increased. The CD19 positive B-cells have a polytypic expression of surface immunoglobulin light chain ([place]:Lambda ratio at 1.2). The T-cells are an admixture of CD4+ and CD8+ T lymphocytes (ratio of 8). No loss or atypical intensity distributions are seen for any delarosa T antigen (CD2, 3, 4+8, 5, 7). There is no increase in FS32-imgmrshg/CD3-ne g NK cells. Flow analysis is an ancillary study. A definite diagnosis requires correlation with the morphologic features of this process and if necessary, correlation with other ancillary studies like immunohistochemistry , enzyme cytochemistry and/or cyto/ molecular genetics. This test was developed and its performance characteristics determined by the Clinical Flow Cytometry Laboratory at [facility]. It has not been cleared or approved [...] high complexity clinical laboratory testing. SPECIMEN PROCESSING [id number] Cells for immunophenotypic analysis were derived from BAL. CD45 vs side scatter gating was utilized to identify a lymphoid analysis region that comprises approximately 57-59% of all cells. The following markers were assessed: CD2, CD3, CD4, CD5, CD7, CD8, CD10, CD19, CD45, CD56, kappa light chain, and lambda light chain. CLINICAL INFORMATION mediastinal adenopathy [facility] 03/02/2019 12:1 6 PM EDT Kevin Fairchild MD PATHOLOGY/CYTOLOGY ORDERABLES [facility] [place] [address] * Fluid Review Report (03/02/2019 12:16 PM EDT) Fluid Review Report [id number] ? Location: 4T; EA07; A The signing pathologist has (i) examined the relevant preparation(s) for the specimen(s) and (ii) rendered or confirmed the diagnosis(es). . ? Fluid Review DIAGNOSIS Pleural fluid, fluid review: No malignant cells are seen on the cytocentrifuge preparation. Electronically signed by: ??Ciara LYON, Biju Verified: ??03/03/2019 ?Hematopathologist Performed at: ??-[facility] Dept. of Pathology, [place], [place] DISCUSSION This fluid review is best [...] for Study: ?? Hilar and mediastinal lymphadenopathy. [facility] 03/02/2019 12:1 6 PM EDT Kevin Fairchild MD PATHOLOGY/CYTOLOGY ORDERABLES [facility] [place] [address] * Differential Body Fluid, Manual (03/02/2019 12:16 PM EDT) Polymorph % Man 1 % [facility] Comment: Rare WBC phagocytosis present Polymorphonuclear cell percent and absolute values may contain Neutrophils, Eosinophils, and Basophils. Body fluid smear will be scanned manually for concordance. Mononuc % Man 99 % [facility] Comment: Mononuclear cell percent and absolute values may contain Lymphocytes and Monocytes. Body fluid smear will be scanned manually for concordance. Polymorph ABS Man 2 /mcl [facility] Comment: Polymorphonuclear cell percent and absolute values may contain Neutrophils, Eosinophils, and Basophils. Body fluid smear will be scanned manually for concordance. Mononuc ABS Man 191 /mcl [facility] Comment: Mononuclear cell percent and absolute values may contain Lymphocytes and Monocytes. Body fluid smear will be scanned manually for concordance. Tot Diff Ct BF 200 Cells [facility] Bronchoalveolar lavage fluid specimen (specimen) 03/02/2019 12:16 PM EDT 03/02/2019 1:55 PM EDT Narrative Resulting Agency Comment Spec In Lab Kevin Fairchild MD BODY FLUIDS AND STO OLS ORDERABLES [facility] [place] [address] * AFB culture Bronchial Alveolar Lavage (03/02/2019 12:16 PM EDT) Acid Fast Bacilli Culture No Acid Fast Bacilli isolated If active tuberculosis is suspected, the patient should be on [employer]CAUTIONS. Call Infection Prevention for assistance if needed. [facility] Acid Fast Stain No Acid Fast Bacilli seen [facility] Bronchoalveolar lavage fluid specimen (specimen) 03/02/2019 12:16 PM EDT 03/02/2019 2:09 PM EDT Comment:RML Narrative Resulting Agency Comment Spec In Lab Kevin Fairchild MD MICROBIOLOGY - GENE RAL ORDERABLES [facility] [place] [address] * Fungus culture Bronchial Alveolar Lavage (03/02/2019 12:16 PM EDT) Fungus Culture No Fungus isolated [facility] Bronchoalveolar lavage fluid specimen (specimen) 03/02/2019 12:16 PM EDT 03/02/2019 2:09 PM EDT Comment:RML Narrative Resulting Agency Comment Spec In Lab Kevin Fairchild MD MICROBIOLOGY - GENE RAL ORDERABLES Performing Organization Address [facility]/ZIP Co de Phone Number [facility] [place] [address] * Immunophenotyping Flow Cytometry (03/02/2019 12:16 PM EDT) Immunophenotyping Flow See Comment [facility] Comment: When completed by the Pathologist, the Flow Cytometry Report ([id number]) will display under the Pathology Results section within eDH. Specimen of unknown material (specimen) 03/02/2019 12:16 PM EDT 03/02/2019 1:55 PM EDT Narrative Resulting Agency Comment Spec In Lab Kevin Fairchild MD HEMATOLOGY ORDERABL ES Performing Organization Address [facility] Co de Phone Number [facility] [place] [address] * Pneumocystis Carinii Stain Bronchial Alveolar Lavage (03/02/2019 12:16 PM EDT) Pneumocystis Carinii Stain Fluorescent stain negative for: Pneumocystis jiroveci (carinii) [facility] Bronchoalveolar lavage fluid specimen (specimen) 03/02/2019 12:16 PM EDT 03/02/2019 2:09 PM EDT Comment:RML Narrative Resulting Agency Comment Spec In Lab Kevin Fairchild MD MICROBIOLOGY - GENE RAL ORDERABLES Performing Organization Address City/[facility]/ZIP Co de Phone Number [facility] [place] [address] * Cell Count Body Fluid Bronchial Alveolar Lavage; additional orders entered (03/02/2019 12:16 PM EDT) Body Fluid Source BAL [facility] Color, Fld Colorless [facility] Appearance, Fld Slightly Hazy [facility] WBC Count, Fld 193 /mcl [facility] Comment: Body Fluid was manually performed [...] AND STO OLS ORDERABLES Performing Organization Address [facility] Co de Phone Number [facility] [place] [address] * Lower Respiratory Culture Bronchial Alveolar Lavage (03/02/2019 12:16 PM EDT) Lower Respiratory Culture No growth [facility] Gram Stain Few squamous epithelial cells Few Neutrophils seen No microorganisms seen. [facility] Bronchoalveolar lavage fluid specimen (specimen) 03/02/2019 12:16 PM EDT 03/02/2019 2:09 PM EDT Comment:RML Narrative Resulting Agency Comment Spec In Lab Kevin Fairchild MD MICROBIOLOGY - GENE RAL ORDERABLES Performing Organization Address City/[facility]/ZIP Co de Phone Number [facility] [place] [address] * Cytopathology Non-Gynecological (03/02/2019 12:15 PM EDT) AP Specimen 03/02/2019 12:1 5 PM EDT 03/02/2019 12:15 PM EDT Narrative [facility] - 03/02/2019 12:15 PM EDT Specimen requisition ordered. ??Separate Pathology report to follow Kevin Fairchild MD PATHOLOGY/[place] [address] * Cytopathology Non-Gynecological (03/02/2019 12:15 PM EDT) AP Specimen 03/02/2019 12:1 5 PM EDT 03/02/2019 12:15 PM EDT Narrative [facility] - 03/02/2019 12:15 PM EDT Specimen requisition ordered. ??Separate Pathology report to follow Kevin Fairchild MD PATHOLOGY/CYTOLOGY ORDERABLES Performing Organization Address [facility] [place] [address] * Cytopathology Non-Gynecological (03/02/2019 12:15 PM EDT) AP Specimen 03/02/2019 12:1 5 PM EDT 03/02/2019 12:15 PM EDT Narrative [facility] - 03/02/2019 12:15 PM EDT Specimen requisition ordered. ??Separate Pathology report to follow Kevin Fairchild MD PATHOLOGY/CYTOLOGY ORDERABLES Performing Organization Address [facility] [place] [address] * BRONCHOSCOPY (03/02/2019 11:36 AM EDT) BRONCHOSCOPY [facility] Bronchoscopy ___ Patient Name: Amy Alexander ? [...] 11:3 6 AM EDT Ramiro Peralta MD GENSURG ORDERS NO P OSTOP PAIN QUESTION PROVATION documented in this encounter Visit Diagnoses Diagnosis Sarcoid Sarcoidosis documented in this encounter Administered Medications Inactive [...] documented as of this encounter Care Teams Replanting Machine Operator Relationship Specialty Start Date End Date Diane Law APRN [address] [place] [address] PCP - General Family Medicine 03/02/19 documented as of this encounter
--- OUTSIDE RECORDS SUMMARY | 2024-04-26 16:06 | XMS_ITS | Encounter Summary ---
Author Organization [facility] Address [address] [place] [address] Care Team Providers Care Barista Name Role Phone Carisa Ayers NP Primary Care Provider Encounter Details Date Type Department Care Team (Late Contact Info) Description 10/27/2011 Results Only [facility] Laboratory Services - [facility] ([facility]) [address] [place] [address] [id number] Anastasia Núñez FNP [address] [place], [place] [id number] Social History Tobacco Use Types Packs/Day Years Used Date Smoking Tobacco: Never Assessed Sex and Gender Information Value Date Recorded Sex Assigned at Not on file Gender Identity Not on file Sexual Orientation Not on file documented as of this encounter Plan of Treatment Upcoming Encounters Date Type Department Care Team (Late Contact Info) Description 05/18/2024 15:30 EST Office Visit [facility] Pul[facility] [address] [facility], [place], [place] [address] Leif Lovelace MD [address] [facility] [place] [address] documented as of this encounter Procedures Procedure Name Priority Date/Time Associated Diagnosis Comments PAP TEST- RESULT ONLY Routine 10/27/2011 0:00 EDT documented in this encounter Results * PAP TEST- RESULT ONLY (10/27/2011 0:00 EDT) Pathologist [facility] Pathology Report: CYTOPATHOLOGY REPORT Reports generated via electronic interface contain original data; however they are lacking the format of the original report. Caution should be taken when reading/interpreti ng unformatted reports. Name: ? DALLAS ALEXANDER ? Accession #: ? [id number] ? : ? 1960 (Age: 51) ??F ?Collect Date: ? 10/27/2011 ? Location: ? [facility] ? Receive Date: ? 10/29/2011 ? Provider: ANASTASIA NÚÑEZ HOUSE MOVING SUPERVISOR Copy to: ? Final Report SPECIMEN ADEQUACY ? Satisfactory for Evaluation - transformation zone component present GENERAL CATEGORIZATION ? Negative for Intraepithelial Lesion or Malignancy ?? Hormonal/Contracep tive status: Intrauterine device: Mirena Specimen/Source: ??Pap Test, Source Not Provided, [employer] System with manual evaluation Document reviewed and electronically signed by: ? VERA Barnett(ASCP) ? Report ??Date: 11/04/2011 11:07 HPV with Pap Test ? Date Ordered: ? 11/04/2011 ? Status: ?? Signed Out ?Date Complete: ? 11/06/2011 ? By: ??System Interface ? Date Reported: ? 11/06/2011 ? Interpretation RESULT: Negative for HPV. No E6 or E7 mRNA is detected from HPV types 16,18,31,33,35, 39,45,51,52,56,58, 59,66, and 68 by geriatric nurse practitioner mediated amplification. Comments Document reviewed and electronically signed by: ? System Interface ? Report date: 11/06/2011 By the signature above, the attending physician certifies that he/she has personally conducted a gross and/or microscopic examination of the described specimens and rendered or confirmed the above diagnosis. End of Report DANIA ESCOBAR 10/27/2011 10/29/2011 Anastasia Núñez [facility] PATHOLOGY ORDERAB LES DANIA ESCOBAR [address] [place] [address] documented in this encounter Visit Diagnoses Not on filedocumented in this encounter Care Teams Barista Relationship Specialty Start Date End Date Carisa Ayers NP [address] [place] [address] PCP - General 07/18/10 07/17/14 documented as of this encounter
--- OUTSIDE RECORDS SUMMARY | 2024-04-26 16:06 | XMS_ITS | Encounter Summary ---
Author Organization [facility] Address [address] [place] [address] Care Team Providers Care Senior Mortgage Loan Processor Name Role Phone Reggie Peralta MD Primary Care Provide r Encounter Details Date Type Department Care Team (Late Contact Info) Description 02/28/2016 Results Only Imaging [facility] General Surgery - [address] [phone] Kristopher Lucia MD [address] [place] [phone] Social History Tobacco Use Types Packs/Day Years Used Date Smoking Tobacco: Never Assessed Sex and Gender Information Value Date Recorded Sex Assigned at Not on file Gender Identity Not on file Sexual Orientation Not on file documented as of this encounter Plan of Treatment Upcoming Encounters Date Type Department Care Team (Late Contact Info) Description 05/18/2024 15:30 EST Office Visit [facility] Pul[facility] [address] [place] [address] Leif Lovelace MD [address] [phone] Pending Results Name Type Priority Associated Diagnoses Date /Time OUTSIDE IMAGES - FLUORO BODY Imaging 02/28/2016 15:58 EDT OUTSIDE IMAGES - OTHER CHEST Imaging 02/28/2016 15:58 EDT documented as of this encounter Visit Diagnoses Not on filedocumented in this encounter Care Teams Senior Mortgage Loan Processor Relationship Specialty Start Date End Date Reggie Peralta MD [address] [address] PCP - General 01/20/16 01/20/21 documented as of this encounter
--- OUTSIDE RECORDS SUMMARY | 2024-04-26 16:06 | XMS_ITS ---
Author Organization Unknown Address [address] [place] [phone] Phone Care Team Providers Care Net Ui Developer Name Role Phone LELA Post Attending Unavailable JORGE Gallegos Primary Unavailable Results XR KNEE 4V LT* - Completed: 11/19/2021 16:34 LOINC: LEFT KNEE, 4 VIEWS: There is no evidence of fracture but there is a small joint effusion noted. There is fats-yw-lgar narrowing of the medial compartment and marginal osteophytes. Lateral compartment exhibits normal height. Patellofemoral compartment appears unremarkable. IMPRESSION: Degenerative changes in the medial compartment. Joint effusion. No fracture evident. Dictated by: ALBINA BANEGAS MD Transcribed by: RUDY 11/20/21/09:42 [id number] Electronically Reviewed and Signed By: ANYA BANEGAS MD 11/20/21 10:53 Copy for: 185 HEALTH INFORMATION MGMT Social History Type Status Start Date End Date Code Code Syst em Smoking History Never smoker (Never Smoked) [id number] SNOMED CT Smoking History Former smoker [id number] SNOMED CT Sex Female Hospital Discharge Instructions Should you have any questions prior to discharge, please contact a member of your healthcare team. If you have left the hospital and have any questions, please contact your primary care physician. 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
--- OUTSIDE RECORDS SUMMARY | 2024-04-26 16:06 | XMS_ITS | Encounter Summary ---
Author Organization [facility] Address [address] [place] [address] Care Team Providers Care Concrete Polisher Name Role Phone Unavailable Primary Care Provider Unavailabl e Encounter Details Date Type Department Care Team (Late st Contact Info) Description 06/30/2000 19:01 EST Hospital Encounter [facility] - Other [address] [place] [address] Linda Martins MD [address] [place] [address] 2 [place] [address] Unknown, Provider, Social History Tobacco Use Types [...] 15:30 EST Office Visit [facility] Pulmonology [address] [facility], [place], [place] [id number] Leif Lovelace MD 111 [facility], [facility] 5 [place] [phone] documented as of this encounter Procedures Procedure Name Priority Date/Time Associated Diagnosis Comments SED RATE Routine 06/30/2000 12:02 EST SYPHILIS SERO (RPR) Routine 06/30/2000 1 2:02 EST TSH Routine 06/30/2000 12:02 EST T4 Routine 06/30/2000 12:02 EST HEMOGLOBIN A1C Routine 06/30/2000 12:02 EST FOLATE Routine 06/30/2000 12:02 EST VITAMIN B12 Routine 06/30/2000 12:02 EST documented in this encounter Results * TSH (06/30/2000 12:02 EST) TSH 3.38 0.35 - 5.50 uIU/ml [facility] 06/30/2000 12:0 2 EST 06/30/2000 12:21 EST Linda Martins MD CHEMISTRY & BLOOD GA S ORDERABLES Performing Organization Address City/[facility]/[place] Co de Phone Number [facility] [address] [place] [address] * T4 (06/30/2000 12:02 EST) T4, Total 7.0 4.5 - 10.9 ug/dl [facility] 06/30/2000 12:0 2 EST 06/30/2000 12:21 EST Linda Martins MD CHEMISTRY & BLOOD GA S ORDERABLES Performing Organization Address City/State/[place] Co de Phone Number [facility] [address] [place] [address] * SED. RATE:SELAMREN (06/30/2000 12:02 EST) Sed. Rate Westergren 19 0 - 20 mm/hr [facility] 06/30/2000 12:0 2 EST 06/30/2000 12:21 EST Linda Martins MD HEMATOLOGY & PF4 ORD ERABLES Performing Organization Address [facility] Co de Phone Number [facility] [address] [place] [address] * SYPHILIS SERO (RPR) (06/30/2000 12:02 EST) Syphilis Sero (RPR) NONREACT. NR Dils [facility] 06/30/2000 12:0 2 EST 06/30/2000 12:21 EST Linda Martins MD IMMUNOLOGY AND SEROL OGY ORDERABLES Performing Organization Address [facility] Co de Phone Number [facility] [address] [place] [address] * (ABNORMAL) FOLATE (06/30/2000 12:02 EST) Folate 18.8(H) 2.8 - 18.0 ng/ml [facility] 06/30/2000 12:0 2 EST 06/30/2000 12:21 EST Linda Martins MD CHEMISTRY & BLOOD GA S ORDERABLES Performing Organization Address [facility] Phone Number [facility] [address] [place] [address] * VITAMIN B12 (06/30/2000 12:02 EST) Vitamin B-12 327 250 - 1100 pg/ml [facility] 06/30/2000 12:0 2 EST 06/30/2000 12:21 EST Linda Martins MD CHEMISTRY & BLOOD GA S ORDERABLES Performing Organization Address [facility]/[place] Co de Phone Number [facility] [address] [place] [address] * HEMOGLOBIN A1C (06/30/2000 12:02 EST) Hemoglobin A1C 5.2 % [facility] Comment: Glucose Control Index Poor=greater than 10% Fair=9-10% Good=8-9% Excellent=7-8% Near Normal=6-7% Non-Diabetic=less than 6% 06/30/2000 12:0 2 EST 06/30/2000 12:21 EST Vikasp Eliezer LYON CHEMISTRY & BLOOD GA S ORDERABLES Performing Organization Address City/State/[place] Co de Phone Number [facility] [address] [place] [address] documented in this encounter Visit Diagnoses Not on filedocumented in this encounter
--- OUTSIDE RECORDS SUMMARY | 2024-04-26 16:06 | XMS_ITS ---
Author Organization Unknown Address [address] [place] [phone] Phone Care Team Providers Care Product Design Engineer Name Role Phone LELA Post Attending Unavailable JORGE Gallegos Primary Unavailable Results MM SCREENING BILAT MAMMO W T GUS W CAD - Completed: 11/12/2022 10:38 LOINC: [place], [place] [address] PACS [employer] ACCESS DEVELOPER REPORT Patient Name: DALLAS CARRANZA Kaylee MRN: Sex: : Age: [id number] F 1960 62 Account: Accession: Admit: StayType: [id number] 11/12/2022 O/P Ordered: Order ID: Submitted: Ordering Provider: 11/12/2022 09:53 [id number] KT DARVIN PATEL Completed: Technologist: Resulted: 11/12/2022 10:38 [facility] 11/12/2022 11:32 Study Description: MM SCREENING BILAT MAMMO W KALLIE W CAD Study Reason: Screening TECHNIQUE: Bilateral full field digital CC and MLO mammographic images were obtained with 3D tomosynthesis and utilizing computer aided detection (CAD). COMPARISON: Prior mammograms were reviewed. FINDINGS: There has been no significant change in the appearance and distribution of the fibroglandular tissue. There are no CAD designations. There are no spiculated masses nor malignant appearing microcalcification groups. There is no significant architectural distortion nor skin thickening-retraction. IMPRESSION: 1. No radiographic evidence of malignancy. BiRads Category: 1-negative BI_RADS Density Category B: Scattered areas of fibroglandular density Breast density Category C or D implies that the patient has dense breast tissue. Dense breast tissue can make it harder to find cancer on a mammogram. Dense breast tissue is also associated with an increased risk of breast cancer. This information about the result of the mammogram report was provided to the patient to raise their awareness. Use this report when you speak with the patient about their risks for breast cancer, which includes their family history. At that time, you may recommend additional screening tests (Ultrasound or MRI) as these tests may add significant information. A negative radiographic report should not delay biopsy if a dominant or clinically suspicious mass is present. Up to ten percent of cancers are not identified on mammography. A negative report may reinforce clinical impression. Adenosis and dense breasts may obscure an underlying neoplasm. False positive reports average 6 to 10%. Patient will receive a letter notifying them of these results. Report Digitally Signed by Clayton Freeman on 11/12/2022 11:32 AM EDT Social History Type Status Start Date End Date Code Code Syst em Smoking History Never smoker (Never Smoked) 847164368 SNOMED CT Smoking History Former smoker [id number] SNOMED CT Sex Female Hospital Discharge Instructions Should you have any questions prior to discharge, please contact a member of your healthcare team. If you have left the hospital and have any questions, please contact your primary care physician. Reason For Referral No Data Found Problems Problem Start Date Resolved Date Status Code Code System DIABETES 07/06/2023 resolved [id number] SNOMED-CT ULCER 07/06/2023 resolved [id number] SNOMED-CT HIGH CHOLESTEROL 07/06/2023 resolved 50415872 SN OMED-CT SARCOIDOSIS 07/06/2023 resolved 70428157 SNOMED- CT Allergies and Adverse Reactions Allergy Substance Reaction Severity Start Date Concern Status Co de Code System No Known Drug Allergies Active 149310530 SNOMED-CT Plan of Treatment MM SCREEN BILAT 11/12/2022 Encounters Encounter Diagnosis Start Date Code Code Sys tem Screening mammography 10/09/2022 97586705 SNOMED -CT Personal Care Team Section Performer Name Performer Role Active Date Inactive Da te
--- OUTSIDE RECORDS SUMMARY | 2024-04-26 16:06 | XMS_ITS | Encounter Summary ---
[place] [address] Care Team Providers Care Oversize Load Pilot Escort Name Role Phone Reggie Peralta MD Primary Care Provider [phone] Reason for Referral * Diagnostic Test (Routine) - Closed Specialty Diagnoses / Procedures Referred By Contac t Referred To Contact Radiology Diagnoses Sarcoidosis Procedures CT Chest wo Contrast (Generic) Kingsley Velasco MD [facility] [place] [address] [facility] [place] [address] Referral ID Status Reason Start Date Expiration Date V isits Requested Visits Authorized [id number] Closed Specialty Service Requested 02/02/2019 03/19/2019 1 1 Reason for Visit * Diagnostic Test (Routine) - Closed Specialty Diagnoses / Procedures Referred By Contac t Referred To Contact Radiology Diagnoses Sarcoidosis Procedures CT Chest wo Contrast (Generic) Kingsley Velasco MD [facility] [address] [facility] [place] [address] Referral ID Status Reason Start Date Expiration Date V isits Requested Visits Authorized [id number] Closed Specialty Service Requested 02/02/2019 03/19/2019 1 1 Encounter Details Date Type Department Care Team (Latest Contact Info) Description 02/06/2019 7:16 AM EDT - 02/06/2019 11:59 PM EDT Hospital En[place] [address] Kingsley Velasco MD [facility] DR [place]ULMONARY [place] [address] Sarcoidosis Discharge Disposition: Home Social History Tobacco [...] 11 10/27/2018 documented as of this encounter Plan of Treatment Not on file documented as of this encounter Procedures Procedure Name Priority Date/Time Associated Diagnosis Comments CT CHEST WO CONTRAST (GENERIC) Routine 02/06/2019 7:31 AM EDT Sarcoidosis documented in this encounter Results * CT Chest wo [...] below. ? Electronically signed by: Munira Edwards [facility] ([phone]), at 02/06/2019 10:03 AM Narrative 02/06/2019 10:03 [...] the right lung (for example, series 5 [id number], [id number], 204). Sub-3 mm calcified granuloma within [...] 1.3 cm paratracheal lymph nodes (series 5 [id number], 144). Prominent but nonpathologically enlarged anterior mediastinal [...] Sarcoidosis documented in this encounter Care Teams Oversize Load Pilot Escort Relationship Specialty Start Date End Date Reggie Peralta MD [address] [place] [address] PCP - General Family Medicine 10/27/18 03/01/19 documented as of this encounter
--- OUTSIDE RECORDS SUMMARY | 2024-04-26 16:06 | XMS_ITS | Encounter Summary ---
Author Organization [facility] Address [address] [place] [address] Care Team Providers Care Gas Line Installer Supervisor Name Role Phone Reggie Peralta MD Primary Care Provide r Encounter Details Date Type Department Care Team (Late Contact Info) Description 03/06/2016 Abstract [facility] - [address] [phone] Kristopher Lucia MD [address] [phone] Social History Tobacco Use Types Packs/Day Years Used Date Smoking Tobacco: Never Assessed Sex and Gender Information Value Date Recorded Sex Assigned at Not on file Gender Identity Not on file Sexual Orientation Not on file documented as of this encounter Plan of Treatment Upcoming Encounters Date Type Department Care Team ([facility] Contact Info) Description 05/18/2024 15:30 EST Office Visit [facility] Pulmonology [address] [place] [address] Leif Lovelace MD [address] [address] documented as of this encounter Visit Diagnoses Not on filedocumented in this encounter Historical Medications * This list may reflect changes made after this encounter. Medication Sig Dispensed Refills Start Date End Date albuterol 90 mcg/actuation inhaler Inhale 2 Puffs as directed every 6 hours as needed for Wheezing. calcium carbonate (TUMS) 200 mg calcium (500 mg) tablet,chewable Take 1 Tablet by mouth every 2 hours as needed. acetaminophen (TYLENOL) 325 mg tablet Take 1 Tablet by mouth every 4 hours as needed for Pain. dexlansoprazole (DEXILANT) 60 mg capsule Take 1 Capsule by mouth daily. omeprazole (PRILOSEC) 40 mg capsule Take 40 mg by mouth daily. 08/24/2023 ranitidine (ZANTAC) 150 mg capsule Take 150 mg by mouth 2 times daily as needed. 08/24/2023 added in this encounter Care Teams Gas Line Installer Supervisor Relationship Specialty Start Date End Date Reggie Peralta MD [address] [place] [id number] PCP - General 01/20/16 01/20/21 documented as of this encounter
--- OUTSIDE RECORDS SUMMARY | 2024-04-26 16:06 | XMS_ITS | Encounter Summary ---
Author Organization [facility] Address [address] [place] [address] Care Team Providers Care Leather Cleaner Name Role Phone Unavailable Primary Care Provider Unavailabl e Encounter Details Date Type Department Care Team (Latest Contact Info) Description 08/26/1999 11:44 EST - 08/26/1999 11:59 EST Hospital Encounter [facility] - Other [address] [place], [place] [phone] Emily Mehta, STRUCTURAL STEEL TRADES WORKER [address] [place] [address] Unknown, Provider, Discharge Disposition: Auto Discharge Social History Tobacco Use Types Packs/Day Years Used Date Smoking Tobacco: Never Assessed Sex and Gender Information Value Date Recorded Sex Assigned at Not on file Gender Identity Not on file Sexual Orientation Not on file documented as of this encounter Discharge Disposition Disposition Code Departure Means Destination Auto Discharge documented in this encounter Plan of Treatment Upcoming Encounters Date Type Department Care Team (Late st Contact Info) Description 05/18/2024 15:30 EST Office Visit [facility] Pulmonology [address] [facility], [place] [address] Leif Lovelace MD 111 [facility], [facility] [address] [place] [address] documented as of this encounter Procedures Procedure Name Priority Date/Time Associated Diagnosis Comments THYROID CASCADE Routine 08/26/1999 20:57 EST COMPLETE BLOOD COUNT Routine 08/26/1999 20:57 EST RHEUMATOID FACTOR Routine 08/26/1999 20: 57 EST ANTI NUCLEAR AB (NEREIDA), IFA Routine 08/26/1999 20:57 EST BASIC METABOLIC PANEL (BMP) Routine 08/26/1999 20:57 EST documented in this encounter Results * THYROID CASCADE (08/26/1999 20:57 EST) TSH 2.23 0.35 - 5.50 uIU/ml [facility] Comment: TSH cascade is not recommended for patients in which pituitary or hypothalamic disorders are suspected. 08/26/1999 20:5 7 EST 08/26/1999 20:57 EST Emily Mehta STRUCTURAL STEEL TRADES WORKER CHEMISTRY & BLOOD GAS ORDERABLES Performing Organization Address [facility] Co de Phone Number [facility] [address] [place] [address] * RHEUMATOID FACTOR (08/26/1999 20:57 EST) Pathologist [facility] [place] Rheumatoid Factor <20 <20 IU/ml [facility] Comment:New methodology in u se 06/11/99 - Note new reference range for this test. 08/26/1999 20:5 7 EST 08/26/1999 20:57 EST Emily Mehta STRUCTURAL STEEL TRADES WORKER CHEMISTRY & BLOOD GAS ORDERABLES Performing Organization Address [facility] de Phone Number [facility] [address] [place] [address] * HEMAGRAM (08/26/1999 20:57 EST) WBC 6.28 4.0 - 12.4 K/cmm [facility] RBC 4.68 3.86 - 5.04 M/cmm [facility] Hemoglobin 13.2 11.6 - 15.2 gm/dl [facility] HCT 39.3 34.9 - 44.4 % [facility] MCV 84 81 - 98 fl [facility] MCH 28.1 26.7 - 33.3 pg [facility] MCHC 33.5 32.1 - 35.9 gm/dl [facility] PLT 302 141 - 320 K/cmm [facility] RDW-CV 13.6 11.7 - 14.6 % [facility] 08/26/1999 20:5 7 EST 08/26/1999 20:57 EST Emily Mehta NP HEMATOLOGY & PF4 O RDERABLES Performing Organization Address [facility] Co de Phone Number [facility] [address] [place] [address] * BASIC METABOLIC PANEL (08/26/1999 20:57 EST) Pathologist [facility] Sodium 141 136 - 145 mEq/L [facility] Comment:Fasting Potassium 4.5 3.5 - 5.0 mEq/L [facility] Comment:Fasting Chloride 105 96 - 110 mEq/L [facility] Comment:Fasting CO2 27 24 - 30 mEq/L [facility] Comment:Fasting BUN 11 10 - 26 mg/dl [facility] Comment:Fasting Creatinine 0.7 0.7 - 1.5 mg/dl [facility] Comment:Fasting Glucose, Serum 95 70 - 110 mg/dl [facility] Comment:Fasting 08/26/1999 20:5 7 EST 08/26/1999 20:57 EST Emily Mehta NP CHEMISTRY & BLOOD GAS ORDERABLES Performing Organization Address [facility] Co de Phone Number [facility] [address] [place] [address] * ANTI NUCLEAR ANTIBODY (08/26/1999 20:57 EST) Anti Nuclear Ab <40 0 - 40 Dils [facility] 08/26/1999 20:5 7 EST 08/26/1999 20:57 EST Emily S Tyson STRUCTURAL STEEL TRADES WORKER IMMUNOLOGY AND SER OLOGY ORDERABLES [facility] [address] [place] [address] documented in this encounter Visit Diagnoses Not on filedocumented in this encounter
--- OUTSIDE RECORDS SUMMARY | 2024-04-26 16:06 | XMS_ITS | Encounter Summary ---
Author Organization [facility] Address [address] [place] [address] Care Team Providers Care Middleware Administrator Name Role Phone Unavailable Primary Care Provider Unavailabl e Encounter Details Date Type Department Care Team (Late Contact Info) Description 02/27/2000 22:27 EDT Hospital Encounter [facility] - Other [address] [place] [address] Bud Gomez MD Unknown, Provider, Social History Tobacco Use Types [...] EST Office Visit [facility] Pulmonology [address] [facility], [place] [address] Leif Lovelace MD 111 [facility], [facility] [address] [place] [address] documented as of this encounter Procedures Procedure Name Priority Date/Time Associated Diagnosis Comments CYTOPATHOLOGY Routine 02/27/2000 0:00 EDT documented in this encounter Results * CYTOPATHOLOGY (02/27/2000 0:00 EDT) Pathology Report: CYTOPATHOLOGY REPORT Reports generated via electronic interface contain original data; however they are lacking the format of the original report. Caution should be taken when reading/interpreti ng unformatted reports. Name: ? DALLAS CANTRELL ? Accession #: ? [id number] : ? 1960 (Age: 39) ??F ?Collect Date: ? 02/27/2000 Location: ? [facility] ? Receive Date: ? 03/05/2000 Provider: ?BUD GOMEZ MD Copy to: ? Specimen/Source: ?Conventional Pap Test, (2 or more slides) Last Menstrual Period: ? 02/17/00 ? SPECIMEN ADEQUACY ? Satisfactory for evaluation. GENERAL CATEGORIZATION ? Within Normal Limits ? Document reviewed and electronically signed by: ? VERA Penn(ASCP) ? Report Date: ??03/08/2000 12:25 End of Report [facility] 02/27/2000 03/05/2000 Bud Gomez MD PATHOLOGY ORDERABLES [facility] [address] [place] [address] documented in this encounter Visit Diagnoses Not on filedocumented in this encounter
--- OUTSIDE RECORDS SUMMARY | 2024-04-26 16:06 | XMS_ITS | Encounter Summary ---
Author Organization [facility] [place] [address] Care Team Providers Care Director Regulatory Agency Name Role Phone Derek Sharma MD Primary Care Provider [phone] Reason for Visit * Reason Comments Eye Pain Iritis eval requeste d by Dr Johnson Encounter Details Date Type Department Care Team (Late st Contact Info) Description 09/11/2014 1:15 PM EST Office [place] [address] Betito Crowley MD [facility] [place] [address] Uveitis; Glaucoma Discharge Disposition: Home Social History Tobacco Use Types Packs/Day Years Used Date Smoking Tobacco: Never Alcohol Use Standard Drinks/Week Comments No 0 (1 standard drink = 0.6 oz pur e alcohol) Sex and Gender Information Value Date Recorded Sex Assigned at Not on file Gender Identity Not on file Sexual Orientation Not on file documented as of this encounter Patient Instructions * Patient Instructions* Betito Crowley MD - 09/11/2014 2:23 PM EST Use eye medications as instructed by Dr. Crowley during your appointment. For non eye medications not prescribed by the Ophthalmology (Eye) Clinic, please follow up with your PCP (primary care provider) for instructions. Please call the eye clinic, [phone], for any significant changes in vision, new flashes or floaters or eye pain documented in this encounter Progress Notes * Betito Crowley MD - 09/11/2014 2:04 PM EST Encounter Diagnoses Name Primary? Uveitis ??? Glaucoma Amy Alexander is a 54 y.o. with the following ophthalmic problems: New onset bilateral iridocyclitis: quiet currently only on Acular, corrects to 20/20 OD and 20/30 OS (no CME appreciated). While I would not classify this as full blown intermediate uveitis on the basis of only a few snowballs this remains a possibility. The differential for this includes Lyme disease (but no tick bites), MS (but no history or symptoms), Sarcoid (elevated ANAIS but apparently nl CXR) and idiopathic and various masquerade syndromes. For now I think she can be followed given her quiet eye on minimal medications. Should she develop more severe disease or new systemic symptoms a more extensive work up should be undertaken particularly to investigate the possibility of sarcoid. Lab's done by Dr. Johnson: HLA-B27 negative, ANAIS= 71 (upper limit 50), ESR = 22, neg RPR, nl CBC, CXR nl. Plan: - continue acular, MR given - Follow up 3-[address] Johnson 4-6 months with Keo or as needed - Findings and concerns discussed with Amy and she expressed understanding. Ltr to Alex and discussed on phone -Upon Return IOP MR if vision down by 2 lines compared to last visit documented in this encounter Plan of Treatment Not on file documented as of this encounter Visit Diagnoses Diagnosis Uveitis Unspecified iridocyclitis Glaucoma Unspecified glaucoma documented in this encounter Care Teams Director Regulatory Agency Relationship Specialty Start Date End Date Derek Sharma MD [address] [place] [address] PCP - General 09/06/14 06/21/18 documented as of this encounter
--- OUTSIDE RECORDS SUMMARY | 2024-04-26 16:06 | XMS_ITS | Encounter Summary ---
Author Organization [facility] Address [address] [place] [id number] Care Team Providers Care Broom Handle Dipper Name Role Phone Unknown, Provider Primary Care Provider [phone] Encounter Details Date Type Department Care Team (Late Contact Info) Description 09/30/2015 Results Only [facility] [phone] Diane Patel, CONSERVATION SCIENCE OFFICER [address] [place], [place] [id number] Social History Tobacco Use Types Packs/Day Years Used Date Smoking Tobacco: Never Assessed Sex and Gender Information Value Date Recorded Sex Assigned at Not on file Gender Identity Not on file Sexual Orientation Not on file documented as of this encounter Plan of Treatment Upcoming Encounters Date Type Department Care Team (Late Contact Info) Description 05/18/2024 15:30 EST Office Visit [facility] [address] [place] [phone] Leif Lovelace MD [address] [facility], [facility] [address] [place] [phone] documented as of this encounter Procedures Procedure Name Priority Date/Time Associated Diagnosis Comments PAP TEST- RESULT ONLY Routine 09/30/2015 0:00 EDT documented in this encounter Results * PAP TEST- RESULT ONLY (09/30/2015 0:00 EDT) Pathology Report: CYTOPATHOLOGY REPORT Reports generated via electronic interface contain original data; however they are lacking the format of the original report. Caution should be taken when reading/interpreti ng unformatted reports. Name: ? DALLAS ALEXANDER ? Accession #: ? [id number] ? : ? 1960 (Age: 55) ??F ?Collect Date: ? 09/30/2015 ? Location: ? [facility] ? Receive Date: ? 10/02/2015 ? Provider: DIANE PATEL NP Copy to: ? Final Report SPECIMEN ADEQUACY ? Satisfactory for Evaluation - transformation zone component absent GENERAL CATEGORIZATION ? Negative for Intraepithelial Lesion or Malignancy ?? Specimen/Source: ??Pap Test, Cervix/Endocervix, ThinPrep Imaging System with manual evaluation Document reviewed and electronically signed by: ? VERA Barnett(ASCP) ? Report ??Date: 10/08/2015 10:09 HPV with Pap Test ? Date Ordered: ? 10/08/2015 ? Status: ?? Signed Out ?Date Complete: ? 10/10/2015 ? By: ??System Interface ? Date Reported: ? 10/10/2015 ? Interpretation RESULT: Negative for HPV. No E6 or E7 mRNA is detected from HPV types 16,18,31,33,35, 39,45,51,52,56,58, 59,66, and 68 by rn surgical pcu mediated amplification. Comments Document reviewed and electronically signed by: ? System Interface ? Report date: 10/10/2015 By the signature above, the attending physician certifies that he/she has personally conducted a gross and/or microscopic examination of the described specimens and rendered or confirmed the above diagnosis. End of Report [facility] 09/30/2015 10/02/2015 Diane Patel NP PATHOLOGY ORDERABLES Performing Organization Address City/State/[facility] [place] Co de Phone Number [facility] [address] [place] [address] documented in this encounter Visit Diagnoses Not on filedocumented in this encounter Care Teams Broom Handle Dipper Relationship Specialty Start Date End Date Unknown, Provider, PCP - General 07/18/14 01/19/16 documented as of this encounter
--- OUTSIDE RECORDS SUMMARY | 2024-04-26 16:06 | XMS_ITS | Encounter Summary ---
[place] [address] Care Team Providers Care Hob Machine Operator Name Role Phone Ani Diane Gallegos APRN Primary Care Provider [phone] Reason for Visit * Auth/Cert Specialty Diagnoses / Procedures Referred By Contac t Referred To Contact Diagnoses GA/Sarcoid/Ebus Bronchoscopy w/ Mazdisnian Procedures PRO [facility] EBUS DX/TX INTERVENTION PERPH LES BRONCH, W EBUS DURING INTERVENTION FOR PERIPH LESION (WRVU 1.4) Referral ID Status Reason Start Date Expiration Date Visits Re quested Visits Authorized [id number] 1 1 Encounter Details Date Type Department Care Team (Late st Contact Info) Description 03/02/2019 11:46 AM EDT Anesthesia [place] [address] Travis Garcia MD [facility] [place] [address] Anesthesia Record Procedure Summary Procedure Name Responsible Anesthesiologist Anesthesia Start Time Anesthesia Stop Time BRONCH, W EBUS DURING INTERVENTION FOR PERIPH LESION (WRVU 1.4) Travis Garcia MD 03/02/19 1146 03/02/19 1357 Events Date Time Event Comment 03/02/2019 1124 1146 AN Verify 1146 Start 1146 An Start Data 1151 An Induction 1155 An Intubation 1156 Anesthesia Ready 1222 Handoff Intra-procedure anesthesia care was transferred after review of the patient's history, current anesthetic/surgical status and plan, according to the ANES Provider Handoff Checklist. 1345 Procedure Stop 1350 Extubation/LMA Out Patient s pontaneously ventilating; adequate tidal volumes ( >450 mL); regular respiratory rate & rhythm; minute ventilation > 4L/min; neuromuscular function intact as evidence by sustained tetanus; following commands. Oropharynx suctioned. Extubated without issue to 6L/min O2 via face mask. VSS. 1351 an stop data 1356 Recovery or ICU Handoff Marianna ent care was transferred to the destination unit staff after review of the patient's medical history, current anesthetic/surgical status and plan, according to the Provider Handoff Checklist. 1357 Stop Patient awake, appropriately answers questions. Spontaneous ventilation without issue. VSS. Full report given to CAGE TENDER. Meds Name Total IV Lidocaine 100 mg Propofol 200 mg Rocuronium 50 mg Ondansetron 4 mg Dexamethasone 8 mg Lidocaine 4% LTA 3 mL Propofol INF 1,378.16 mg Neostigmine 3 mg Glycopyrrolate 0.4 mg Lactated Ringers 500 mL * Agents Name O2 Air N2O Sevoflurane (et) O2 Auxiliary Flowmeter 1 * Blood No blood administrations on file. Lines, Drains, and Airways Type Details Placement Removal (RETIRED) Peripheral IV Line - Single Lumen 03/02/19; 1055; metacarpal vein (top of hand), right; lezi-utb-hdgwih catheter system; 22 gauge; distraction, intradermal injection, tolerated well; 0; 04/16/21 (LDA Cleanup utility RA#[id number]); 1650 (LDA Cleanup utility RA#[id number]) 03/02/19 1055 by Nancy Veliz RN 04/16/21 1650 by Vicente Kamara ETT Mask Ventilation: Ea sy (1); ETT Type: Cuffed, Oral; ETT Size: 8.5 mm; Mac Blade: 3; Notes: Asleep, Pre-O2, Stylette; Attempts: 2; Laryngoscopy Grade: 1; ETT Placement Verified By: Auscultation, Capnometry, Visual; Secured at Teeth: 21 cm; Inserted by: ALICIA Linda; Removal Date: 03/02/19; Removal Time: 1350 03/02/19 1155 by Duyen Linda CRNA 03/02/19 1350 by Frances Ro CRNA documented in this encounter Social History Tobacco Use Types Packs/Day Years Used Date Smoking Tobacco: Never Smokeless Tobacco: Never Alcohol Use Standard Drinks/Week Comments No 0 (1 standard drink = 0.6 oz pur e alcohol) Sex and Gender Information Value Date Recorded Sex Assigned at Not on file Gender Identity Not on file Sexual Orientation Not on file documented as of this encounter OR Notes * Anesthesia Postprocedure Evaluation - Travis Garcia MD - 03/02/2019 3:58 PM EDT Department of Anesthesiology Post-procedure Note Patient: Amy Alexander Procedure Summary Date: 03/02/19 Room / [facility] Anesthesia Start: 1146 Anesthesia Stop: 1357 Procedures: BRONCH, W EBUS DURING INTERVENTION FOR PERIPH LESION (WRVU 1.4) (N/A ) BRONCHOSCOPY, RIGID OR FLEXIBLE, WITH BRONCHIAL ALVEOLAR LAVAGE (WRVU 2.88) (N/A Chest) Diagnosis: Sarcoid (GA/Sarcoid/Ebus Bronchoscopy w/ Devorah) Surgeon: Kevin Fairchild MD Responsible Provider: Travis Garcia MD Anesthesia Type: general ASA Status: 3 All Anesthesia Providers: Anesthesiologist: Travis Garcia MD TRANSPORT DRIVER: Frances Ro CRNA; Duyne Linda CRNA Vitals Value Taken Time BP 108/86 03/02/2019 2:30 PM Temp Pulse 78 03/02/2019 1:57 PM Resp 20 03/02/2019 1:57 PM SpO2 97 % 03/02/2019 2:32 PM Pain Level 0 03/02/2019 1:57 PM Vitals shown include unvalidated device data. Patient Location: PACU/[facility] Level of Consciousness: Awake and Alert Pain Management: Satisfactory Analgesia PONV: None Cardiovascular Status: At Baseline and Hemodynamically Stable Respiratory Status: At Baseline and Room Air Postoperative Fluid Status: Intravascular EUvolemia Possible Anesthetic Complications: NONE apparent at time of evaluation Final Primary Anesthesia Type: General (The anesthetic type performed was the same as planned.) Comments: Doing well. No issues. Travis Garcia MD * Anesthesia Preprocedure Evaluation - Travis Garcia MD - 03/01/2019 8:41 PM EDT Pre-Anesthesia Evaluation for: Amy Alexander a 58 y.o. female. Procedure(s): BRONCH, W EBUS DURING INTERVENTION FOR PERIPH LESION (WRVU 1.4) Patient Active Problem List Diagnosis ??? Sarcoidosis ??? Mediastinal lymphadenopathy ??? Hyperlipidemia ??? Irritable bowel syndrome ??? Gastroesophageal reflux ??? Uveitis ??? Glaucoma Past Medical History: Diagnosis Date ??? Arthritis ??? Gastroesophageal reflux 10/30/2018 ??? Glaucoma 09/11/2014 ??? Hyperlipidemia 10/30/2018 ??? Uveitis 09/11/2014 No past surgical history on file. Social History Tobacco Use ??? Smoking status: Never Smoker ??? Smokeless tobacco: Never Used Substance Use Topics ??? Alcohol use: No Social History Substance and Sexual Activity Drug Use Not on file No Known Allergies Medications: MAR and/or home medications have been reviewed. Physical Exam: There were no vitals filed for this visit. There is no height or weight on file to calculate BMI. Airway Assessment: Mallampati: II Neck ROM: full Cardiovascular Assessment: cardiovascular exam normal Pulmonary Assessment: pulmonary exam normal Dental Assessment: Misc Assessment: IV access: Peripheral line Anesthesia Plan: ASA 3 general, with a(n) intravenous induction 58 year old female with history of HLD, sarcoidosis, GERD, and hiatal hernia here for Bronch with EBUS Allergy: No Known Allergies BP Readings from Last 3 Encounters: 02/06/19 : 122/64 10/27/18 : 116/71 Labs: No results found for: WBC, HGB, HCT, MCV, PLATELET No results found for: ALT, AST, GGT, ALKPHOS, BILITOT, BILIDIR, ALBUMIN, PROT No results found for: TSH, N9FNNDU, TT4, THYROIDAB No results found for: HA1C No results found for: GLUCOSE NPO: >4 METS No active GERD Plan: The patient was informed of the risks, benefits and alternatives of anesthesia. These risks included, but were not limited to, post-operative nausea and/or vomiting, pain, sore throat, dental/lip trauma, and other rare but serious complications such as major organ damage, awareness, severe allergicreactions, position-related nerve injuries, corneal abrasion/blindness and need blood transfusions.All questions were sought and answered. Consent was signed and placed in chart. Region - Other Informed Consent: Plan discussed with TRANSPORT DRIVER. PAT Clinic Note documented in this encounter Plan of Treatment Not on file documented as of this encounter Visit Diagnoses Not on filedocumented in this encounter Administered Medications Inactive Administered Medications - up to 3 most recent administrations Medication Order MAR Action Action Date Dose Rate Site dexamethasone (DECADRON) injection PRN, Starting on Elvira 03/02/19 at 1216, Until Elvira 03/02/19 at 1357, Anesthesia Intra-op, Routine Given 03/02/2019 12:16 PM EDT 8 mg glycopyrrolate (ROBINUL) multi-dose injection PRN, Starting on Elvira 03/02/19 at 1339, Until Elvira 03/02/19 at 1357, Anesthesia Intra-op, Routine Given 03/02/2019 1:39 PM EDT 0.4 mg lactated ringers infusion CONTINUOUS PRN, Starting on Elvira 03/02/19 at 1146, Until Elvira 03/02/19 at 1357, Anesthesia Intra-op New Bag 03/02/2019 11:46 AM EDT lidocaine (PF) (XYLOCAINE) 100 mg/5 mL (2 %) injection PRN, Starting on Elvira 03/02/19 at 1151, Until Elvira 03/02/19 at 1357, Anesthesia Intra-op, Routine Given 03/02/2019 11:51 AM EDT 100 mg lidocaine (XYLOCAINE) 4 % external solution PRN, Starting on Elvira 03/02/19 at 1151, Until Elvira 03/02/19 at 1357, Anesthesia Intra-op Given 03/02/2019 11:51 AM EDT 3 mLs neostigmine (BLOXIVERZ) injection PRN, Starting on Elvira 03/02/19 at 1339, Until Elvira 03/02/19 at 1357, Anesthesia Intra-op, Routine Given 03/02/2019 1:39 PM EDT 3 mg ondansetron (ZOFRAN) injection PRN, Starting on Elvira 03/02/19 at 1319, Until Elvira 03/02/19 at 1357, Anesthesia Intra-op, Routine Given 03/02/2019 1:19 PM EDT 4 mg propofol (DIPRIVAN) 10 mg/mL bolus injection (Anesthesia) PRN, Starting on Elvira 03/02/19 at 1151, Until Elvira 03/02/19 at 1357, Anesthesia Intra-op Given 03/02/2019 11:51 AM EDT 200 mg propofol (DIPRIVAN) infusion CONTINUOUS PRN, Starting on Elvira 03/02/19 at 1151, Until Elvira 03/02/19 at 1357, Anesthesia Intra-op, Routine New Bag 03/02/2019 11:51 AM EDT 200 mcg/kg/min 77.3 mL/hr rocuronium (ZEMURON) multi-dose injection PRN, Starting on Elvira 03/02/19 at 1151, Until Elvira 03/02/19 at 1357, Anesthesia Intra-op, Routine Given 03/02/2019 11:51 AM EDT 50 mg documented in this encounter Additional Health Concerns Infection Onset Date Last Indicated Resolved Time Rule Out Tuberculosis 03/02/2019 03/02/20192018 7:56 PM EDT documented as of this encounter Care Teams Hob Machine Operator Relationship Specialty Start Date End Date Diane Law, AIRPORT LOCATION MANAGER [address] [place] [address] PCP - General Family Medicine 03/02/19 documented as of this encounter
--- OUTSIDE RECORDS SUMMARY | 2024-04-26 16:06 | XMS_ITS | Clinical Summary ---
Author Organization [facility] [place] [address] Care Team Providers Care Online Affiliate Marketing Manager Name Role Phone Diane Law APRN Primary Care Provider [phone] Allergies No known active allergies Medications Medication Sig Dispensed Refills Start Date End Date Status omeprazole (PRILOSEC) 40 mg Capsule, Delayed Release(E.C.) Take 40 mg by mouth Daily. Active ranitidine (ZANTAC) 150 mg Capsule Take 150 mg by mouth Twice daily as needed. Active beclomethasone (QVAR) 80 mcg/actuation AerosolIndications: maintenance therapy for asthma Inhale 2 puffs into the lungs 2 times daily. Indications: Controller Medication for Asthma 1 Inhaler 11 10/27/2018 Active Additional Information Patient not taking.Reported on 02/06/2019 Active Problems Problem Noted Date Diagnosed Date Sarcoidosis 10/30/2018 Mediastinal lymphadenopathy 10/30/2018 Hyperlipidemia 10/30/2018 Irritable bowel syndrome 10/30/2018 Gastroesophageal reflux 10/30/2018 Uveitis 09/11/2014 Glaucoma 09/11/2014 Family History Medical History Relation Comments Amblyopia Neg Hx Cataracts Neg Hx Macular Degeneration Neg Hx Retinal Detachment Neg Hx Strabismus Neg Hx Social History Tobacco Use Types Packs/Day Years [...] (142 lb) 03/02/2019 10:43 AM EDT Height 154.9 cm (5' 1) 02/06/2019 9:22 AM EDT Body Mass Index 26.83 02/06/2019 9:22 AM EDT Plan of Treatment Health Maintenance Due Date Last Done Comments CT Colonography 1960 Colonoscopy 1960 Colorectal Cancer Screening 1960 FIT DNA 1960 FIT 1960 Sigmoidoscopy (10 year) with FIT yearly 1960 Sigmoidoscopy 1960 HIV screen 1979 Hepatitis C Screening 1979 Tetanus/Diphtheria/Pertussis Vaccines (1 - Tdap) 06/23 HPV test 1991 PAP Smear 1991 Breast Cancer Share Decision Needed 2001 Breast Cancer screening 2001 Zoster vaccine (1 of 2) 2011 Advance Directive 2016 Covid-19 Vaccine ( - season) 2024 Influenza (Flu) vaccine (1 o f 1 - Influenza standard series) 03/12/2024 Care Teams Online Affiliate Marketing Manager Relationship Specialty Start Date End Date Diane Law APRN [address] [place], [place] [phone] PCP - General Family Medicine 03/02/19
--- OUTSIDE RECORDS SUMMARY | 2024-04-26 16:06 | XMS_ITS | Encounter Summary ---
Author Organization [facility] Address [address] [place] [address] Care Team Providers Care Head Knitting Machine Fixer Name Role Phone Carisa Ayers NP Primary Care Provider Encounter Details Date Type Department Care Team (Late Contact Info) Description 07/16/2010 Results Only [facility] - [facility] [address] [place] [phone] Anastasia Núñez FNP [address] [place], [place] [id number] Social History Tobacco Use Types Packs/Day Years Used Date Smoking Tobacco: Never Assessed Sex and Gender Information Value Date Recorded Sex Assigned at Not on file Gender Identity Not on file Sexual Orientation Not on file documented as of this encounter Plan of Treatment Upcoming Encounters Date Type Department Care Team (Late Contact Info) Description 05/18/2024 15:[address] [facility] Pulmonology [address] [facility], [place], [place] [phone] Leif Lovelace MD [address] [facility], [address] [place] [address] documented as of this encounter Procedures Procedure Name Priority Date/Time Associated Diagnosis Comments CYTOPATHOLOGY Routine 07/16/2010 0:00 EST documented in this encounter Results * CYTOPATHOLOGY (07/16/2010 0:00 EST) Pathology Report: CYTOPATHOLOGY REPORT ? Reports generated via electronic interface contain original data; ? however they are lacking the format of the original report. ? Caution should be taken when reading/interpreti ng unformatted reports. ? Name: ? DALLAS ALEXANDER ? Accession #: ? [id number] ? : ? 1960 (Age: 50) ??F ?Collect Date: ? 07/16/2010 ? Location: ? [facility] ? Receive Date: ? 07/18/2010 ? Provider: ANASTASIA ADELINE PATTERN SHOP SUPERVISOR ? Copy to: ? Final Report ? SPECIMEN ADEQUACY ? Satisfactory for Evaluation ? - transformation zone component present ? GENERAL CATEGORIZATION ? Negative for Intraepithelial Lesion or Malignancy ? Specimen/Source: ??Pap Test, Source Not Provided, ThinPrep Imaging System with ?? manual evaluation ? Document reviewed and electronically signed by: ? Brittney Lopezlogg, CT(ASCP) ? Report ??Date: 07/22/2010 10:51 ? HPV with Pap Test ? Date Ordered: ? 07/22/2010 ? Status: ?? Signed Out ?Date Complete: ? 07/24/2010 ? By: ??System Interface ? Date Reported: ? 07/24/2010 ? Interpretation ? RESULT: Negative for HPV types 16, 18, 31, 33, 35, 39, 45, 51, 52, ? 56, 58, 59, and 68. ? Comments ? Document reviewed and electronically signed by: ? System Interface ? Report date: 07/24/2010 ? By the signature above, the attending physician certifies that he/she has ? personally conducted a gross and/or microscopic examination of the described ? specimens and rendered or confirmed the above diagnosis. ? End of Report ? DANIA ESCOBAR 07/16/2010 07/18/2010 Anastasia Núñez PATTERN SHOP SUPERVISOR PATHOLOGY ORDERAB LES Performing Organization Address City/State/[facility] Co de Phone Number [facility] [address] [place] [address] documented in this encounter Visit Diagnoses Not on filedocumented in this encounter Care Teams Head Knitting Machine Fixer Relationship Specialty Start Date End Date Carisa Ayers NP [address] [place] [id number] PCP - General 07/18/10 07/17/14 documented as of this encounter
--- OUTSIDE RECORDS SUMMARY | 2024-04-26 16:06 | XMS_ITS | Encounter Summary ---
Author Organization [facility] Address [address] [place] [id number] Care Team Providers Care Heel Stiffener Name Role Phone Unknown, Provider Primary Care Provider Reggie Peralta MD Primary Care Provide r Encounter Details Date Type Department Care Team (Late Contact Info) Description 11/12/2015 Historical Results Only [facility] Radiology Results [address] [phone] Ramin Silva MD Social History Tobacco Use Types Packs/Day Years Used Date Smoking Tobacco: Never Assessed Sex and Gender Information Value Date Recorded Sex Assigned at Not on file Gender Identity Not on file Sexual Orientation Not on file documented as of this encounter Plan of Treatment Upcoming Encounters Date Type Department Care Team (Late Contact Info) Description 05/18/2024 15:30 EST Office Visit [facility] Pulmonology [address] [place], [place] [address] Leif Lovelace MD 111 [facility] 5 [place] [address] documented as of this encounter Procedures Procedure Name Priority Date/Time Associated Diagnosis Comments FL UGI WO AIR WO RENTAL CAR DELIVERER 11/12/2015 10:06 EDT documented in this encounter Results * FL UGI WO AIR WO RENTAL CAR DELIVERER (11/12/2015 10:06 EDT) Anatomical Region Laterality Modality Body Other 11/12/2015 10:0 6 EDT Narrative 11/12/2015 10:16 EDT ? EXAM: RADIOLOGY/UPPER GI SERIES ? EX. D/ (0854) ? CLINICAL INFORMATION: ? VOMITING,REFLUX ? UPPER GI SERIES ? Signs and Symptoms/Comments: ??VOMITING, REFLUX ? Comparisons: Chest radiograph on 07/13/2014 ? Technique: Double contrast upper GI series was performed. ? Findings: ? Spare Hand Carding images demonstrate no significant abnormality. ? Double contrast evaluation of the esophagus demonstrates no mucosal ? abnormality. There is mild eccentric narrowing at the ? gastroesophageal junction with preserved changeability. This appears ? to represent a stricture at the site of the prior partial wrap. The ? wrap itself appears to have slipped with an associated small hiatal ? hernia. Delayed clearance of barium from the esophagus through the ? distal stricture was noted. There is also moderate gastroesophageal ? reflux, accentuated by supine positioning and with induction ? maneuvers. ? Double contrast evaluation of the stomach demonstrates no mucosal ? abnormality or filling defect. ? Double contrast evaluation of the duodenum demonstrates no mucosal ? abnormality or filling defect. Contrast passes freely into the ? proximal jejunum. ? Fluoroscopy time: 6 minutes 34 seconds ? IMPRESSION: ? 1. History of partial fundoplication, which appears to have slipped ? with a resulting small hiatal hernia. ? 2. Mild stricture at the gastroesophageal junction with delayed ? clearance of barium from the esophagus. ? 3. Moderate gastroesophageal reflux, accentuated by supine ? positioning and induction maneuvers. ? REPORT SIGNED IN OTHER VENDOR SYSTEM 11/12/2015 ?Reported By: Tanner Lerma MD ? CC: ? Transcribed Date/Time: 11/12/2015 (1016) ? Criminalist Technician: ? Printed Date/Time: 12/22/2018 (2226) ? PAGE 1 ? Signed Report ? Procedure Note Tanner Lerma MD - 05/17/2019 EXAM: RADIOLOGY/UPPER GI SERIES EX. D/ (0854) CLINICAL INFORMATION: VOMITING,REFLUX UPPER GI SERIES Signs and Symptoms/Comments: VOMITING, REFLUX Comparisons: Chest radiograph on 07/13/2014 Technique: Double contrast upper GI series was performed. Findings: Spare Hand Carding images demonstrate no significant abnormality. Double contrast evaluation of the esophagus demonstrates no mucosal abnormality. There is mild eccentric narrowing at the gastroesophageal junction with preserved changeability. Thisappears to represent a stricture at the site of the prior partial wrap. The wrap itself appears to have slipped with an associated small hiatal hernia. Delayed clearance of barium from the esophagus through the distal stricture was noted. There is also moderate gastroesophageal reflux, accentuated by supine positioning and with induction maneuvers. Double contrast evaluation of the stomach demonstrates no mucosal abnormality or filling defect. Double contrast evaluation of the duodenum demonstrates no mucosal abnormality or filling defect. Contrast passes freely into the proximal jejunum. Fluoroscopy time: 6 minutes 34 seconds IMPRESSION: 1. History of partial fundoplication, which appears to have slipped with a resulting small hiatal hernia. 2. Mild stricture at the gastroesophageal junction with delayed clearance of barium from the esophagus. 3. Moderate gastroesophageal reflux, accentuated by supine positioning and induction maneuvers. REPORT SIGNED IN OTHER VENDOR SYSTEM 11/12/2015 Reported By: Tanner Lerma MD CC: Transcribed Date/Time: 11/12/2015 (1016) Criminalist Technician: Printed Date/Time: 12/22/2018 (9572) PAGE 1 Signed Report Ramin Silva MD IMG FLUOROSCOPY SAJAN BARNSE documented in this encounter Visit Diagnoses Not on filedocumented in this encounter Care Teams Heel Stiffener Relationship Specialty Start Date End Date Unknown, Provider, PCP - General 07/18/14 01/19/16 Reggie Peralta MD [address] [address] PCP - General 01/20/16 01/20/21 documented as of this encounter
--- OUTSIDE RECORDS SUMMARY | 2024-04-26 16:06 | XMS_ITS | Encounter Summary ---
Author Organization [facility] Address [address] [place] [address] Care Team Providers Care Division Sales Manager Name Role Phone Carisa Ayers NP Primary Care Provider Encounter Details Date Type Department Care Team (Late Contact Info) Description 10/07/2012 Results Only [facility] Laboratory Services - [facility] ([facility] [address] [place] [id number] Anastasia Núñez FNP [address] [place], [place] [phone] Social History Tobacco Use Types Packs/Day Years Used Date Smoking Tobacco: Never Assessed Sex and Gender Information Value Date Recorded Sex Assigned at Not on file Gender Identity Not on file Sexual Orientation Not on file documented as of this encounter Plan of Treatment Upcoming Encounters Date Type Department Care Team (Late Contact Info) Description 05/18/2024 15:30 EST Office Visit [facility] Pul[facility] [address] [facility], [place], [place] [phone] Leif Lovelace MD 111 [facility], Level [address] [place] [address] documented as of this encounter Procedures Procedure Name Priority Date/Time Associated Diagnosis Comments PAP TEST- RESULT ONLY Routine 10/07/2012 0:00 EDT documented in this encounter Results * PAP TEST- RESULT ONLY (10/07/2012 0:00 EDT) Pathology Report: CYTOPATHOLOGY REPORT Reports generated via electronic interface contain original data; however they are lacking the format of the original report. Caution should be taken when reading/interpreti ng unformatted reports. Name: ? DALLAS ALEXANDER ? Accession #: ? [id number] : ? 1960 (Age: 52) ??F ?Collect Date: ? 10/07/2012 Location: ? [facility] ? Receive Date: ? 10/11/2012 Provider: ?ANASTASIA NÚÑEZ FRUIT FARMWORKER Copy to: ? Specimen/Source: ?Pap Test, Endocervix, ThinPrep Imaging System with manual evaluation Last Menstrual Period: ? 10/07/2012 Hormonal/Contracep tive Status: ? Yes: mirena ? SPECIMEN ADEQUACY ? Satisfactory for Evaluation - transformation zone component present GENERAL CATEGORIZATION ? Negative for Intraepithelial Lesion or Malignancy ? Document reviewed and electronically signed by: ? VEAR Lopez(ASCP) ? Report Date: ??10/14/2012 09:30 End of Report DANIA ESCOBAR 10/07/2012 10/11/2012 Anastasia Núñez [facility] PATHOLOGY ORDERAB LES DANIA ESCOBAR [address] [place] [address] documented in this encounter Visit Diagnoses Not on filedocumented in this encounter Care Teams Division Sales Manager Relationship Specialty Start Date End Date Carisa Ayers NP [address] [place] [address] PCP - General 07/18/10 07/17/14 documented as of this encounter
--- OUTSIDE RECORDS SUMMARY | 2024-04-26 16:06 | XMS_ITS | Encounter Summary ---
[place] [address] Care Team Providers Care Advertising Account Manager Name Role Phone Reggie Peralta MD Primary Care Provider [phone] Encounter Details Date Type Department Care Team (Late st Contact Info) Description 02/28/2019 [place] [phone] Bladimir Alvarez, RN Social History Tobacco Use Types Packs/Day Years [...] on filedocumented in this encounter Care Teams Advertising Account Manager Relationship Specialty Start Date End Date Reggie Peralta MD [address] [place] [address] PCP - General Family Medicine 10/27/18 03/01/19 documented as of this encounter
--- OUTSIDE RECORDS SUMMARY | 2024-04-26 16:07 | XMS_ITS ---
Author Organization Unknown Address [address] [place] [phone] Phone Care Team Providers Care Preschool Assistant Principal Name Role Phone HORACIO ALMAGUER Registered Nurse Unavailable AVIS LAWSON Registered Nurse Unavailable RHIANNON Jackson Attending Unavailable JULIA Jackson ER Unavailable JORGE Gallegos Primary Unavailable UNLISTED PROVIDER - REQUESTED Xhandoff Un available Results TROPONIN HIGH SENSITIVITY* - Collect Date/Time: 07/06/2023 16:10 [facility] ID: [id number] - [id number] [address] [place] [address], [address] LOINC: 40592-0 Test Value Unit Reference Range Code Code System Flag TROPONIN HS < 4.0 pg/mL L=0.0 H=60.4 Specimen seq. ADM. PTT PARTIAL THROMBOPLASTIN T NEIL* - Collect Date/Time: 07/06/2023 16:10 [facility] ID: [id number] - [id number] [address] [place] [address], [id number] LOINC: 13591-1 Test Value Unit Reference Range Code Code System Flag PTT 26.1 seconds L=24.5 H=32.8 29233-9 LOINC PT PROTHROMBIN TIME* - Colle ct Date/Time: 07/06/2023 16:10 [facility] ID: [id number] [address] [place] [address], [address] LOINC: 5902-2 Test Value Unit Reference Range Code Code System Flag PROTIME 10.0 seconds L=9.3 H=11.4 5902-2 LOINC INR 0.96 L=2.00 H=3.00 24725-5 LOINC L COMPREHENSIVE METABOLIC PANE L (CMP) - Collect Date/Time: 07/06/2023 16:10 [facility] ID: [id number] - [id number] [address] [place], [place], [address] LOINC: 61659-0 Test Value Unit Reference Range Code Code System Flag GLUCOSE 194 mg/dL L=70 H=116 2345-7 LOINC H BUN 12 mg/dL L=6 H=25 3094-0 LOINC CREATININE 0.82 mg/dL L=0.51 H=0.95 2160-0 LOINC SODIUM SERUM 138 mmol/L L=136 H=145 2951-2 LOINC POTASSIUM SERUM 3.3 mmol/L L=3.4 H=5.2 2823-3 LOINC L CHLORIDE SERUM 104 mmol/L L=96 H=110 2075-0 LOINC CARBON DIOXIDE (CO2) 25 mmol/L L=22 H=34 2028-9 LOINC ANION GAP 8.8 mmol/L 96937-8 LOINC CALCIUM SERUM 8.6 mg/dL L=8.2 H=10.2 87680-3 LOINC BILIRUBIN TOTAL 0.5 mg/dL L=0.0 H=1.3 1975-2 LOINC ALK. PHOS. 100 U/L L=46 H=116 6768-6 LOINC SGOT (AST) 18 U/L L=15 H=37 1920-8 LOINC SGPT (ALT) 25 U/L L=12 H=78 1742-6 LOINC TOTAL PROTEIN 7.6 gm/dL L=6.0 H=8.0 2885-2 LOINC ALBUMIN 3.5 gm/dL L=3.4 H=5.0 1751-7 LOINC AGE 63 years eGFR (non-Afr.Amer.) 71 mL/min 44452-2 LOINC eGFR (Afr-Jordanian) 85 mL/min 38474-[address] ANGIOGRAPHY CHEST - Compl eted: 07/06/2023 18:40 LOINC: [facility] RADIOLOGY [place], [place] [address] PACS CLOSING AGENT REPORT Patient Name: DALLAS CARRANZA MRN: Sex: : Age: [id number] F 1960 63 Account: Accession: Admit: StayType: [id number] 07/06/2023 E/R Ordered: Order ID: Submitted: Ordering Provider: 07/06/2023 18:15 [id number] JOSE CRUZ CASE Completed: Technologist: Resulted: 07/06/2023 18:40 BXS 07/06/2023 18:53 Study Description: CT ANGIOGRAPHY CHEST Study Reason: chest pain TECHNIQUE: Imaging Protocol: CT angiography of the chest was performed using pulmonary embolus protocol. Multi planar reconstructions were performed. CONTRAST MATERIAL Intravenous: Omnipaque 350 Contrast volume: 100 cc COMPARISON: Prior chest x-rays reviewed. FINDINGS: CHEST: PULMONARY ARTERIES: There are no intraluminal filling defects to suggest acute pulmonary emboli. LUNGS: There is diffuse groundglass opacity in the lung badillo. Probably related to diffuse air trapping. However cannot exclude infectious etiology. There are no pleural effusions. No significant findings in trachea and mainstem bronchi. MEDIASTINUM: There is extensive bilateral hilar adenopathy as well as subcarinal adenopathy. Also some abnormally enlarged lymph nodes in the anterior right mediastinal fat. There is no supraclavicular adenopathy. No axillary adenopathy. No retrocrural adenopathy. CARDIAC: Heart size is normal. There is no pericardial effusion.Caliber of the thoracic aorta is within normal limits. No evidence of aortic dissection. There is no evidence of shift of the interventricular septum. PARTIALLY VISUALIZED UPPERMOST ABDOMEN: Moderate size retrocardiac hiatal hernia. No adrenal masses. No splenomegaly. OSSEOUS: No significant osseous lesions and no fractures evident. IMPRESSION: 1. The main finding here is extensive bilateral hilar lymphadenopathy. There is also subcarinal adenopathy. There is no axillary nor supraclavicular adenopathy. No splenomegaly Apparently there is a history of sarcoidosis here. 2. Diffuse groundglass lung densities which are either related to air trapping or infectious etiology. There are no pleural effusions. No ominous lung nodules. 3. No evidence of aortic dissection nor pericardial effusion Report Digitally Signed by Clayton Freeman on 07/06/2023 06:53 PM EST XR CHEST PORTABLE OR 1V - Co mpleted: 07/06/2023 16:29 LOINC: [facility] RADIOLOGY [place], [place] [address] PACS CLOSING AGENT REPORT Patient Name: DALLAS CARRANZA MRN: Sex: : Age: [id number] F 1960 63 Account: Accession: Admit: StayType: [id number] 07/06/2023 E/R Ordered: Order ID: Submitted: Ordering Provider: 07/06/2023 16:22 [id number] JOSE CRUZ CASE Completed: Technologist: Resulted: 07/06/2023 16:29 MJP 07/06/2023 18:53 Study Description: XR CHEST PORTABLE OR 1V Study Reason: Chest Pain TECHNIQUE: 2D digital imaging was performed. COMPARISON: No exams were available for comparison FINDINGS: Single AP view Heart size normal. Increased markings in both lungs but no confluent infiltrates. Both hilar regions are prominent. Suspect adenopathy. There are no pleural effusions. IMPRESSION: Bilateral hilar adenopathy. Report Digitally Signed by Clayton Freeman on 07/06/2023 06:53 PM EST Social History Type Status Start Date End Date Code Code Syst em Smoking History Never smoker (Never Smoked) 367107449 SNOMED CT Smoking History Former smoker 4721477 SNOMED CT Sex Female Vital Signs Vital Sign Value Unit Roseau Value Roseau Unit Date/Time Recent/Initial? Code Code System Body Mass Index 34.01 kg/m2 07/06/2023 16:00 Initial 20417 -5 LOINC Systolic Blood Pressure 107 mm[Hg] 07/06/2023 19:22 Most Recent 8480- 6 LOINC Diastolic Blood Pressure 78 mm[Hg] 07/06/2023 19:22 Most Recent 8462- 4 LOINC Systolic Blood Pressure 111 mm[Hg] 07/06/2023 16:00 Initial 8480- 6 LOINC Diastolic Blood Pressure 77 mm[Hg] 07/06/2023 16:00 Initial 8462- 4 LOINC Body Surface Area 1.87 m2 07/06/2023 16:00 Initial 3140- 1 LOINC Height 154.940 0 cm 61.00 in 07/06/2023 16:00 Initial 8302- 2 LOINC O2 Saturation 97 % 2022 19:22 Most Recent 74112 -5 LOINC O2 Saturation 95 % 2022 16:00 Initial 56112 -5 LOINC Pulse 77.0 /min 07/06/2023 19:22 Most Recent 8867- 4 LOINC Pulse 78.0 /min 07/06/2023 16:00 Initial 8867- 4 LOINC Respiration 16 /min 07/06/20 19:22 Most Recent 9279- 1 LOINC Respiration 16 /min 07/06/20 23 16:00 Initial 9279- 1 LOINC Temperature 36.8 Nerissa 98.2 F 07/06/20 23 19:22 Most Recent 8310- 5 LOINC Temperature 36.8 Nerissa 98.2 F 07/06/20 23 16:00 Initial 8310- 5 LOINC Weight 81.65 kg 180.00 lbs 07/06/2023 16:00 Initial 82298 -7 [facility] Hospital Discharge Instructions Should you have any questions prior to discharge, please contact a member of your healthcare team. If you have left the hospital and have any questions, please contact your primary care physician. Reason For Referral No Data Found Problems Problem Start Date Resolved Date Status Code Code System DIABETES 07/06/2023 resolved 79610286 SNOMED-CT ULCER 07/06/2023 resolved 073706396 SNOMED-CT HIGH CHOLESTEROL 07/06/2023 resolved 20537475 SN OMED-CT SARCOIDOSIS 07/06/2023 resolved 48309938 SNOMED- CT Allergies and Adverse Reactions Allergy Substance Reaction Severity Start Date Concern Status Co de Code System No Known Drug Allergies Active 993954812 SNOMED-CT Plan of Treatment MM SCREEN BILAT 11/12/2022 Encounters Encounter Diagnosis Start Date Code Code Sys tem Other chest pain 07/06/2023 SNOMED-CT Personal Care Team Section Performer Name Performer Role Active Date Inactive Da te
[2024-04-26 21:30] LABS: HCT 40.5 % (36.0-46.0); HGB 13.4 g/dL (11.2-15.7); MCH 28.4 pg (27.0-33.0); MCHC 33.1 % (32.0-36.0); MCV 86 fL (80-95); MPV 10.8 fL (8.0-11.0); Platelet Count 299 10^3/uL (130-400); RBC 4.72 10^6/uL (3.93-5.22); RDW 13.8 % (11.7-14.6); RDW-SD 43.3 fL; WBC 6.51 10^3/uL (4.4-10.8)
== END 2024-04-26 16:01 | disposition home or self-care (01) ==
LOC: NCHCN 16:00
PROVIDERS: PCP Nurse Practitioner Family; Visit Provider Nurse Practitioner Family
DX: Z86.2 Personal history of diseases of the blood and blood-forming organs and certain disorders involving the immune mechanism (principal); E11.9 Type 2 diabetes mellitus without complications
CPT/HCPCS: 85027; 83036

== ENCOUNTER 2025-04-30 13:46 | Outpatient (REF) | payer OTHER, SELFPAY ==
--- NOTE | 2025-04-30 13:30 | PAPFT_PTH ---
PATIENT: Amy Alexander LOC: [facility] U#:[id number] AGE/SX: 64/F ROOM: RE04/30/[address]: Diane Soto : 1960 BED: DIS: 04/30/2025 SPEC #: [id number] RECD: 05/01/25 12:36 STATUS: KYLER MARTE #: [id number] RODO: 04/30/25 13:[address]: Diane Law DEPT: [facility] Cytology RECD BY: Anne Villarreal ENTERED: 05/01/25 12:36 SP TYPE: PAPFT OTHR DR: Sarah Núñez Tissues: 1 - CX/ENDOCX FOR PAP SMEARS Procedures: PAP THIN PREP/[facility] Screening HPV DNA PROBE Comments: [id number] (HPV 16 & 18/45)
[2025-04-30 21:05] LABS: HCT 42.4 % (36.0-46.0); HGB 13.6 g/dL (11.2-15.7); MCH 27.8 pg (27.0-33.0); MCHC 32.1 % (32.0-36.0); MCV 87 fL (80-95); MPV 12.3 fL (8.0-11.0); Platelet Count 118 10^3/uL (130-400); RBC 4.90 10^6/uL (3.93-5.22); RDW 13.7 % (11.7-14.6); RDW-SD 43.3 fL; WBC 6.06 10^3/uL (4.4-10.8)
[2025-04-30 21:18] LABS: Hemoglobin A1C 9.3 % (<5.7)
[2025-04-30 21:24] LABS: ALT 40 U/L (14-59); AST 27 U/L (15-37); Albumin 3.8 g/dL (3.4-5.0); Alkaline Phosphatase 136 U/L (46-116); Anion Gap 10.0 mmol/L (3-11); BUN 9 mg/dL (7-18); Bilirubin, Total 0.5 mg/dL (0.2-1.0); CO2 27.0 mmol/L (21.0-32.0); Calcium 8.9 mg/dL (8.5-10.1); Chloride 100 mmol/L (98-107); Cholesterol 283 mg/dL (<200); Glucose 261 mg/dL (74-106); HDL Cholesterol 40 mg/dL (>or=50); Potassium 3.7 mmol/L (3.5-5.1); Sodium 137 mmol/L (136-145); TSH 2.32 uIU/mL (0.36-3.74); Total Protein 8.3 g/dL (6.4-8.2)
[2025-04-30 21:43] LABS: Microalb ug/mg Crea 2.8 ug/mg Cr
== END 2025-04-30 13:47 | disposition home or self-care (01) ==
LOC: NCHCN 13:46
PROVIDERS: PCP Nurse Practitioner Family; Visit Provider Nurse Practitioner Family
DX: E11.9 Type 2 diabetes mellitus without complications (principal); Z86.2 Personal history of diseases of the blood and blood-forming organs and certain disorders involving the immune mechanism; E78.5 Hyperlipidemia, unspecified; Z13.29 Encounter for screening for other suspected endocrine disorder; Z12.4 Encounter for screening for malignant neoplasm of cervix
CPT/HCPCS: 80053; 80061; 83721; 85027; 88142; 82043; 82570; 83036; 84443; 87624